=== PATIENT | female | born 1935 | race Caucasian/White ===

== ENCOUNTER 2024-11-19 10:57 | Inpatient (IN) | payer MEDICARE, SELFPAY ==
[2024-11-19] VITALS (17 sets, daily range): BP systolic 122–150; BP diastolic 64–90; PULSE 69–103; RESP 14–21; TEMP 36.4–37.4; O2SAT 93–98; BMI 16.9
--- NOTE | ~2024-11-19 | CT_ITS ---
EXAMINATION: CT HEAD WITHOUT CONTRAST (STROKE PROTOCOL) CLINICAL INFORMATION: Stroke protocol. COMPARISON: None available. TECHNIQUE: Contiguous axial imaging was performed from the skull base to vertex without intravenous administration of contrast. This CT examination was performed using dose optimization techniques as appropriate, variously including the following: *Automated exposure control *Adjustment of mA and/or kV according to patient size (this includes techniques or standardized protocols for targeted exams where dose is matched to indication/reason for exam; i.e. extremities or head) *Use of iterative reconstruction technique DLP 555 mGy/cm. FINDINGS: There is no acute intra-axial, extra-axial bleed, masses or midline shift. There is no acute infarction in evolution. There is no edema. 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 There is diffuse periventrical hypodensity in both cerebral hemispheres without mass effect. The lateral ventricles are moderately enlarged but symmetrical. The the craniovertebral junction is normal. Bone windows reveal no calvarial abnormality. Bilateral paranasal sinuses and mastoid air cells are well-aerated. There are small metallic densities along the anterior chamber of bilateral optic globe, likely postsurgical. Correlate with clinical history CT/CT head for STROKE IMPRESSION: No acute intracranial process seen. 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 This critical result was discussed with E at at 11:30 AM on 11/19/2022. It was ascertained that the content and urgency of the report was understood at the time of direct communication. Electronically signed by: Charly Garcia MD 11/19/2024 11:42 AM [facility]
--- NOTE | ~2024-11-19 | CT_ITS ---
EXAMINATION: CTA NECK WITH CONTRAST (STROKE) CTA BRAIN WITH CONTRAST (STROKE) CLINICAL INFORMATION: Suspect acute stroke. Assess for major vessel occlusion. Please call report. Left facial droop and left-sided deficits. COMPARISON: No prior CT angiography. Noncontrast head CT performed concurrently (reported separately). TECHNIQUE: CTA of the head and neck was performed in the axial plane from the mediastinum to the skull vertex using 70 mL Omnipaque 350 intravenous contrast. Additional reformatted multiplanar images including maximum intensity projection MIP images are generated on the CT workstation. This CT examination was performed using dose optimization techniques as appropriate, variously including the following: *Automated exposure control *Adjustment of mA and/or kV according to patient size (this includes techniques or standardized protocols for targeted exams where dose is matched to indication/reason for exam; i.e. extremities or head) *Use of iterative reconstruction technique NECK CTA: -AORTIC ARCH: Normal in caliber with mild atheromatous calcification. Three-vessel branching pattern. -GREAT VESSEL ORIGINS: Widely patent. -MAIN PULMONARY ARTERY: Enlarged, suggesting pulmonary arterial hypertension. -RIGHT COMMON CAROTID ARTERY: Normal in course and caliber to the level of the bifurcation. -CERVICAL RIGHT INTERNAL CAROTID ARTERY: Mild to moderate calcification and soft plaque within the carotid bulb. No stenosis. The proximal cervical ICA is tortuous but is otherwise normal in course and caliber into the skull base. -LEFT COMMON CAROTID ARTERY: Normal in course and caliber to the level of the bifurcation. -CERVICAL LEFT INTERNAL CAROTID ARTERY: Mild to moderate calcification and soft plaque within the carotid bulb. No stenosis. The proximal cervical ICA is tortuous but is otherwise normal in course and caliber into the skull base. -CERVICAL RIGHT VERTEBRAL ARTERY: Normal origin. Codominant. Normal in course and caliber into the skull base. No stenoses or dissection. -CERVICAL LEFT VERTEBRAL ARTERY: Normal origin. Codominant. Normal in course and caliber into the skull base. No stenoses or dissection. OTHER, SOFT TISSUES: -There appears to be lymphadenopathy within the mediastinum, of uncertain etiology or significance. -Subcentimeter cyst in the left thyroid. Thyroid otherwise normal. -There is relative atrophy of the right parotid gland in comparison with the left. -Imaged lung apices demonstrate biapical scarring, mild bronchial wall thickening bilaterally, and foci of dependent atelectasis. There is underlying mild COPD. CTA OF THE BRAIN: -INTRACRANIAL INTERNAL CAROTID ARTERIES: Patent without aneurysm or stenosis. Moderate calcification. -RIGHT ANTERIOR CEREBRAL ARTERY: Normal A1 segment. Normal arborization of the more distal segments. -LEFT ANTERIOR CEREBRAL ARTERY: The A1 segment is diminutive. Otherwise, normal arborization of the more distal segments. -ANTERIOR COMMUNICATING ARTERY: Normal. -RIGHT MIDDLE CEREBRAL ARTERY: Normal M1 segment of the MCA without focal stenosis or occlusion. Normal arborization of the distal segments. -LEFT MIDDLE CEREBRAL ARTERY: Normal M1 segment of the MCA without focal stenosis or occlusion. Normal arborization of the distal segments. -RIGHT VERTEBRAL ARTERY V4: Normal in course and caliber. -LEFT VERTEBRAL ARTERY V4: Normal in course and caliber. Minimal calcification V4 segment. -BASILAR ARTERY: Both vertebral arteries join to form the basilar. Normal without focal stenosis or occlusion. Normal appearance of the proximal superior cerebellar arteries. Normal basilar tip. -RIGHT POSTERIOR CEREBRAL ARTERY: Patent with hypoplastic right P1. There is a tiny flow gap in the distal right REPAIR DEPARTMENT MANAGER, proximal P4 segment (series 13, image 89), likely chronic contributing to old REPAIR DEPARTMENT MANAGER stroke. There is oligemia of the more distal segments. -LEFT POSTERIOR CEREBRAL ARTERY: Patent without stenosis. Normal opacification of the distal REPAIR DEPARTMENT MANAGER segments. -POSTERIOR COMMUNICATING ARTERIES: Patent on the right with partial origin of the REPAIR DEPARTMENT MANAGER. The left is not well seen and diminutive. Major cortical and dural venous sinuses appear patent. CT/CT angio head neck STROKE IMPRESSION: 1. There is no acute appearing high-grade stenosis, or acute-appearing flow gap or dissection involving the cervical or intracranial vasculature. 2. There is a tiny chronic-appearing flow gap in the distal P4 segment of the right REPAIR DEPARTMENT MANAGER. There is oligemia of the more distal segments in the region of prior infarct, chronic. 3. The main pulmonary artery is enlarged suggesting pulmonary arterial hypertension. 4. There is adenopathy within the mediastinum of uncertain etiology or significance. 5. Refer to the dedicated noncontrast head CT report for chronic findings. Major findings discussed with the Emergency Department provider Aline Barillas PA-C via phone call at 12:30 PM, 11/19/2024. Electronically signed by: Pan Guillen MD 11/19/2024 12:40 PM [facility] [place]
--- NOTE | ~2024-11-19 | XR_ITS ---
EXAMINATION: XR CHEST CLINICAL INFORMATION: Stroke Protocol COMPARISON: None available. TECHNIQUE: Frontal view of the chest was obtained. FINDINGS: The lungs are well-expanded and clear acute process. Heart size enlarged. Pulmonary vascularity is normal. There is mild dextroscoliosis of dorsal lumbar spine. There are loose bodies along the inferior right shoulder joint. XR/XR chest 1V IMPRESSION: No acute cardiopulmonary process seen. Electronically signed by: Charly Garcia MD 11/19/2024 12:13 PM [facility]
--- NOTE | 2024-11-19 11:00 | ECG_ITS ---
Test Reason : stroke Blood Pressure : */* mmHG Vent. Rate : 81 BPM Atrial Rate : * BPM P-R Int : * ms QRS Dur : 90 ms QT Int : 354 ms P-R-T Axes : * 0 211 degrees QTcB Int : 411 ms Atrial fibrillation Septal infarct , age undetermined Marked ST abnormality, possible anterior subendocardial injury Abnormal ECG No previous ECGs available Referred By: Aline Barillas Electronically Signed By: Chapincito Hamilton
--- NOTE | 2024-11-19 11:06 | ED.WEAKNESS ---
HPI - Weakness General Chief complaint: Stroke Stated complaint: ?STROKE,Rajesh AZUL, LKWT 9:30, +THIN,[facility] Time Seen by Provider: 11/19/24 11:00 Source: patient, EMS, RN notes reviewed and old records reviewed Mode of arrival: EMS History of Present Illness ED Provider: Aline Barillas PA-C HPI Narrative: 89-year-old female with a past medical history dysphagia, AFib on Eliquis, diabetes, HTN, HLD, dementia, wheelchair-bound, presenting to the ED via EMS from [facility] complaining of left-sided facial droop and left-sided body weakness noted by staff at 09:30. Unknown last well. Per EMS at baseline patient is wheelchair bound however attempts frequently to get out of chair. Remaining history limited due to patient's acute mental status Related Data Allergies Allergy/AdvReac Type Severity Reaction Status Date / Time No Known Allergies Allergy Verified 11/19/24 11:12 Review of Systems Review of Systems: Yes all other systems are reviewed and are negative Constitutional: Constitutional: Reports as per HPI [facility] Past Medical History Attestation statement: The following information was validated with the patient. Source: old records reviewed Social History Social History Advance Directives: No Advance Directives Information Provided: No Physical Exam Vital Signs: Vital Signs: Last Vital Signs Temp 99.4 F 11/19/24 11:26 Pulse 90 11/19/24 11:26 Resp 20 11/19/24 11:26 BP 129/64 11/19/24 11:26 Pulse Ox 95 11/19/24 11:26 O2 Del Method Room Air 11/19/24 11:26 BMI result Body Mass Index 16.9 Const: General: no acute distress HEENT: Head: Yes normal to inspection and Yes atraumatic Ears: hearing grossly normal bilaterally General nose exam: Normal external nose present Eyes: General: appearance normal, both eyes and all related structures EOM: EOMs intact bilaterally Neck: Neck: Yes normal visual inspection and Yes no meningeal signs Resp: Effort & Inspection: normal respiratory effort and no respiratory distress Auscultation: clear to auscultation bilaterally Cardio: Rate: regular rate Heart sounds: S1 normal heart sound present and S2 normal heart sound present GI: Inspection: Yes normal to inspection Palpation (GI): Soft to palpation, nontender, no guarding and not rigid Skin: Rashes: no rashes Wounds: no wounds Neuro: Other: + left-sided facial droop and left-sided UE & LE paralysis General: no meningeal signs Extrem: General: Yes normal to inspection NIH Stroke Scale Internal: Initial- Upon Arrival Level of Consciousness: Not Alert; but arousable by minor stimulation Level of Consciousness Questions: Answers neither question correctly Level of Consciousness Commands: Performs both tasks correctly Best Gaze: Normal Visual: No visual loss Facial Palsy: Complete paralysis Motor Arm (Right): No drift Motor Arm (Left): No movement Motor Leg (Right): No drift Motor Leg (Left): No movement Limb Ataxia: Absent Sensory: Normal Best Language: Severe aphasia (mute) Dysarthia: Severe dysarthria (mute) Extinction and Inattention: No abnormality Score: 18 Course Course Course Narrative: -1237--labs reassuring. Elevated triglycerides. -UA infected > may be causing encephalopathy. Will give IV ertapenem based on history of ESBL E coli UTIs. Low suspicion for severe sepsis > plan is for admission, case discussed with hospitalist Medications Administered Discontinued Medications Generic Name Dose Route Start Last Admin Trade Name Freq PRN Reason Stop Dose Admin Iohexol 100 ml 11/19/24 11:53 11/19/24 11:53 Iohexol 350 Mg/Ml 100 Ml Infus..Btl IV 11/19/24 11:54 70 ml ONCE ONE Administration Medical Decision Making Medical Decision Making [facility] Narrative: 89-year-old female with a past medical history dysphagia, AFib on Eliquis, diabetes, HTN, HLD, dementia, wheelchair-bound, presenting to the ED via EMS from [facility] complaining of left-sided facial droop and left-sided body weakness noted by staff at 09:30. On exam initially tachycardic, alert to voice, following commands, left-sided facial paralysis and LUE & LLE paralysis noted. Concern for acute CVA vs ICH. Rule out infectious etiology. Low suspicion for severe sepsis NIHSS = 18 > patient is not candidate for tPA as his already anticoagulated Plan: EKG, labs, UA, CXR, stroke head CT/CTA, anticipated admission Please refer to course for remaining clinical decision making, interpretation of labs/imaging results, and discussions with consultants and/or family members. Differential Diagnosis Differential Diagnoses: The differential diagnosis associated with the presentation includes As above Admission/Observation Consideration of admission/observation: Escalation of care including admission/observation considered Consult Healthcare Provider Management of the patient was discussed with: Hospitalist Lab Data [facility] Lab Attestation statement: I reviewed the patient's lab results. 11/19/24 11:05 11/19/24 11:05 Labs: Lab Results 11/19/24 11/19/24 11/19/24 Range/Units 11:05 11:06 11:07 WBC 11.5 H (4.8-10.8) X10*3/uL RBC 5.35 (4.20-5.50) X10*6/uL Hgb 14.8 (12.0-16.0) g/dl Hct 46.4 (37.0-47.0) % MCV 86.7 (80.0-98.0) fL MCH 27.7 (27.0-33.0) pg MCHC 31.9 (31.0-35.0) g/dl RDW 14.4 (11.0-16.0) % Plt Count 272 (160-400) X10*3/uL MPV 11.3 (9.4-12.3) fL Immature Gran % (Auto) 0.5 H (0.0-0.4) % Neut % (Auto) 72.5 (45-73) % Lymph % (Auto) 16.0 L (20-40) % [place] % (Auto) 7.1 (2-11) % Eos % (Auto) 2.7 (0-4) % Baso % (Auto) 1.2 (0-2) % Lymph # (Auto) 1.8 (1.2-4.9) X10*3/uL [place] # (Auto) 0.8 (0.1-1.2) X10*3/uL Eos # (Auto) 0.3 (0.0-0.4) X10*3/uL Baso # (Auto) 0.1 (0.0-0.2) X10*3/uL Abs Immat Gran (auto) 0.06 H (0.00-0.03) X10*3/uL Absolute Neuts (auto) 8.4 H (2.0-8.3) x10*3/uL Absolute Nucleated RBC 0.000 (0.0-0.012) X10*3/uL Nucleated RBC % (auto) 0.0 (0.0-0.2) /100WBC Hold Purple Top SEE NOTE PT 18.6 H (10.9-12.4) SEC Whole Blood PT 19.1 H (11.1-13.5) sec INR 1.6 H (0.9-1.1) Whole Blood INR 1.6 H (0.9-1.1) APTT 29.7 (26.0-36.8) SEC Sodium 150 H (135-145) mmol/L Potassium 4.5 (3.3-5.1) mmol/L Chloride 116 H (96-108) mmol/L Carbon Dioxide 26 (22-29) mmol/L Anion Gap 13 (12-20) BUN 47 H (9-16) mg/dL Creatinine 0.86 (0.5-1.4) mg/dL Estim Creat Clear Calc 28.9 Estimated GFR > 60 POC Glucose 152 H (60-115) mg/dL Random Glucose 164 H (60-115) mg/dL Calcium 9.8 (8.4-10.2) mg/dL Magnesium 2.2 (1.6-2.6) mg/dL Total Bilirubin 0.6 (0.0-1.0) mg/dL Direct Bilirubin 0.3 (0.0-0.5) mg/dL AST 17 (5-31) U/L ALT 12 (0-31) U/L Alkaline Phosphatase 65 (39-117) U/L Troponin I High Sens 8.1 (<3.5-17.0) ng/L Total Protein 7.3 (6.5-8.0) g/dL Albumin 3.6 (3.5-5.0) g/dL Triglycerides 248 H (<150) mg/dL Cholesterol 131 (<200) mg/dL LDL Cholesterol, Calc 63 (<100) mg/dL HDL Cholesterol 19 L (>40) mg/dL Urine Color Urine Appearance Urine pH (5.0-9.0) Ur Specific [place] (1.005-1.025) Urine Protein (Neg-Trace) mg/dL Urine Glucose (UA) (Negative) mg/dL Urine Ketones (Negative) mg/dL Urine Blood (Negative) Urine Nitrite (Negative) Ur Leukocyte Esterase (Negative) Urine RBC (0-2) /HPF Urine WBC (0-5) /HPF Urine WBC Clumps Ur Squamous Epith Cells (0-2) /HPF Urine Bacteria (None Seen) Hyaline Casts (0-2) /LPF 11/19/24 Range/Units 12:19 WBC (4.8-10.8) X10*3/uL RBC (4.20-5.50) X10*6/uL Hgb (12.0-16.0) g/dl Hct (37.0-47.0) % MCV (80.0-98.0) fL MCH (27.0-33.0) pg MCHC (31.0-35.0) g/dl RDW (11.0-16.0) % Plt Count (160-400) X10*3/uL MPV (9.4-12.3) fL Immature Gran % (Auto) (0.0-0.4) % Neut % (Auto) (45-73) % Lymph % (Auto) (20-40) % [place] % (Auto) (2-11) % Eos % (Auto) (0-4) % Baso % (Auto) (0-2) % Lymph # (Auto) (1.2-4.9) X10*3/uL [place] # (Auto) (0.1-1.2) X10*3/uL Eos # (Auto) (0.0-0.4) X10*3/uL Baso # (Auto) (0.0-0.2) X10*3/uL Abs Immat Gran (auto) (0.00-0.03) X10*3/uL Absolute Neuts (auto) (2.0-8.3) x10*3/uL Absolute Nucleated RBC (0.0-0.012) X10*3/uL Nucleated RBC % (auto) (0.0-0.2) /100WBC Hold Purple Top PT (10.9-12.4) SEC Whole Blood PT (11.1-13.5) sec INR (0.9-1.1) Whole Blood INR (0.9-1.1) APTT (26.0-36.8) SEC Sodium (135-145) mmol/L Potassium (3.3-5.1) mmol/L Chloride (96-108) mmol/L Carbon Dioxide (22-29) mmol/L Anion Gap (12-20) BUN (9-16) mg/dL Creatinine (0.5-1.4) mg/dL Estim Creat Clear Calc Estimated GFR POC Glucose (60-115) mg/dL Random Glucose (60-115) mg/dL Calcium (8.4-10.2) mg/dL Magnesium (1.6-2.6) mg/dL Total Bilirubin (0.0-1.0) mg/dL Direct Bilirubin (0.0-0.5) mg/dL AST (5-31) U/L ALT (0-31) U/L Alkaline Phosphatase (39-117) U/L Troponin I High Sens (<3.5-17.0) ng/L Total Protein (6.5-8.0) g/dL Albumin (3.5-5.0) g/dL Triglycerides (<150) mg/dL Cholesterol (<200) mg/dL LDL Cholesterol, Calc (<100) mg/dL HDL Cholesterol (>40) mg/dL Urine Color Dark Yellow Urine Appearance Turbid Urine pH 5.5 (5.0-9.0) Ur Specific [place] 1.025 (1.005-1.025) Urine Protein 100 (2+) H (Neg-Trace) mg/dL Urine Glucose (UA) Negative (Negative) mg/dL Urine Ketones Negative (Negative) mg/dL Urine Blood Large (3+) H (Negative) Urine Nitrite Positive H (Negative) Ur Leukocyte Esterase Large (3+) H (Negative) Urine RBC 6-10 H (0-2) /HPF Urine WBC >50 H (0-5) /HPF Urine WBC Clumps Present Ur Squamous Epith Cells >20 (0-2) /HPF Urine Bacteria 4+ (None Seen) Hyaline Casts 0-2 (0-2) /LPF Independent Interpretation I performed an independent interpretation of an: EKG, Plain X-Ray and CT Scan Radiology Impression Discussion of test interpretation with radiology: I have reviewed the radiologist's reading. Independent Historian Clinical information obtained from an independent historian. History obtained from or confirmed by: EMS External Record Review External record reviewed: Inpatient record, Office record, Outpatient record, Prior outpatient labs, Prior outpatient radiology, Primary care record and Outside ED record Tests considered The following testing was considered but not selected: As above Prescription Management I considered prescription management with: Other Chronic Conditions Patient?s care impacted by: Other (a fib) Social Determinants Patient?s care significantly limited by Social Determinants of Health including: Other Social Determinant of Health Critical Care Time Critical Care Time Critical Care Time: Yes Total Critical Care Time: 45 Attestation: I have personally provided critical care time exclusive of time spent on separately billable procedures. Time includes review of lab data, radiology results, discussion with consultants, and monitoring for potential decompensation. Intervention performed as documented. Discharge Plan Discharge Clinical Impression: Acute UTI, Encephalopathy, Hemiparesis Patient Disposition: Admitted As Inpatient Print Language: Kinyarwanda
[2024-11-19 11:10] LABS: Prothrombin Time Whole Bld POC 19.1 sec (11.1-13.5); ~PT, ~INR - Anti Coag Clinic 1.6 (0.9-1.1)
[2024-11-19 11:11] LABS: Glucose, Whole Blood 152 mg/dL (60-115)
[2024-11-19 11:18] LABS: MANUAL DIFF FLAG NO
[2024-11-19 11:31] LABS: Basophils Absolute Auto 0.1 X10*3/uL (0.0-0.2); Basophils Percent Auto 1.2 % (0-2); Eosinophils Absolute Auto 0.3 X10*3/uL (0.0-0.4); Eosinophils Percent Auto 2.7 % (0-4); Hematocrit 46.4 % (37.0-47.0); Hemoglobin 14.8 g/dl (12.0-16.0); Imm Gran Abs Auto 0.06 X10*3/uL (0.00-0.03); Imm Gran Pct Auto 0.5 % (0.0-0.4); Lymphocytes Absolute Auto 1.8 X10*3/uL (1.2-4.9); Mean Corpuscular HGB Conc 31.9 g/dl (31.0-35.0); Mean Corpuscular Hemoglobin 27.7 pg (27.0-33.0); Mean Corpuscular Volume 86.7 fL (80.0-98.0); Mean Platelet Volume 11.3 fL (9.4-12.3); Monocytes Absolute Auto 0.8 X10*3/uL (0.1-1.2); Monocytes Percent Auto 7.1 % (2-11); Neutrophils Absolute Auto 8.4 x10*3/uL (2.0-8.3); Neutrophils Percent Auto 72.5 % (45-73); Platelet Count 272 X10*3/uL (160-400); Red Blood Count 5.35 X10*6/uL (4.20-5.50); Red Cell Distribution Width 14.4 % (11.0-16.0); White Blood Count 11.5 X10*3/uL (4.8-10.8)
[2024-11-19 11:39] LABS: INTERNATIONAL NORM RATIO 1.6 (0.9-1.1); Prothrombin Time 18.6 SEC (10.9-12.4)
[2024-11-19 11:42] LABS: Partial Thromboplastin Time 29.7 SEC (26.0-36.8)
[2024-11-19 11:45] LABS: Stroke Lab Use COMPLETE
[2024-11-19 11:46] LABS: Alanine Aminotransferase 12 U/L (0-31); Albumin Level 3.6 g/dL (3.5-5.0); Alkaline Phosphatase 65 U/L (39-117); Anion Gap 13 (12-20); Aspartate Amino Transferase 17 U/L (5-31); Bilirubin Direct 0.3 mg/dL (0.0-0.5); Bilirubin Total 0.6 mg/dL (0.0-1.0); Blood Urea Nitrogen 47 mg/dL (9-16); Calcium 9.8 mg/dL (8.4-10.2); Carbon Dioxide 26 mmol/L (22-29); Chloride 116 mmol/L (96-108); Cholesterol 131 mg/dL (<200); Creatinine Clr Calc Pharmacy 28.9; Estimated Glomerular Filt Rate > 60; Glucose Random 164 mg/dL (60-115); HDL Cholesterol 19 mg/dL (>40); LDL Cholesterol Calculated 63 mg/dL (<100); Magnesium 2.2 mg/dL (1.6-2.6); Potassium 4.5 mmol/L (3.3-5.1); Sodium 150 mmol/L (135-145); Total Protein 7.3 g/dL (6.5-8.0); Triglycerides 248 mg/dL (<150)
[2024-11-19] MEDS: iohexoL 350 MG/ML 100 ML INFUS..BTL IV (11:53)
[2024-11-19 11:54] LABS: Troponin-I High Sensitivity 8.1 ng/L (<3.5-17.0)
[2024-11-19 12:26] LABS: Appearance Urine Turbid; Color Urine Dark Yellow; Glucose Urine UA Negative (Negative); Leukocyte Esterase Urine Large (3+) (Negative); Nitrite Urine Positive (Negative); PH 5.5 (5.0-9.0); Specific Gravity - Urine 1.025 (1.005-1.025); UMIC TRIGGER UACC YES; Urine Blood Large (3+) (Negative); Urine Ketones Negative (Negative); Urine Protein 100 (2+) mg/dL (Neg-Trace)
[2024-11-19 12:39] LABS: Bacteria Urine 4+ (None Seen); Hyaline Casts Urine 0-2 /LPF (0-2); Squamous Epithelial Cell Urine >20 /HPF (0-2); UACC Culture Trigger YES; WBC Clumps Urine Present; WBC Urine >50 /HPF (0-5)
[2024-11-19] MEDS: Ertapenem Sodium 1 GM VIAL IVPUSH (12:48)
--- NOTE | 2024-11-19 13:09 | PHA.MEDREC ---
Addendum entered by Haylie Dc RPh 11/19/24 13:54: reviewed by [facility]. Original Note: Pharmacy Consult ? Medication Reconciliation Pharmacy has completed the medication reconciliation. Utilized list from [facility] to confirm med list.
[2024-11-19] MEDS: Dextrose 5 % and Lactated Ring 1,000 ML 60 ML IVCONT (13:12)
[2024-11-19 13:39] LABS: Influenza A PCR NEGATIVE (Negative); Influenza B PCR NEGATIVE (Negative); Resp Syncy Virus RNA Qual PCR NEGATIVE (Negative); SARS COV2 PCR INHOUSE NEGATIVE (Negative)
--- NOTE | 2024-11-19 13:45 | PM.IMHP ---
History of Present Illness Date of Service: 11/19/24 Chief Complaint: Left facial droop/left-sided weakness 89 year old female resident of [facility] with past medical history of dysphagia on pureed and nectar thick liquids, AFib on Eliquis, diabetes, hypertension, hyperlipidemia, dementia, wheelchair-bound presented to emergency room via EMS due to left-sided facial droop and left sided weakness noted by staff at 09:30 unknown last well time, labs showed mild leukocytosis WBC 11.5 stable H&H and platelets, sodium 150, blood sugar 164 BUN 47 with normal creatinine 0.86,due to concern for acute CVA versus intracranial hemorrhage CT head and CTA was obtained, CT head showed no acute intracranial process, showed old left inferior cerebellar and left occipital 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 Review of Systems Review of Systems: Unable to obtain detailed review of system as above PMFSH Pertinent family history: Unable to obtain due to dementia Social History Advance Directives: No Advance Directives Information Provided: No Meds Allergies Allergy/AdvReac Type Severity Reaction Status Date / Time No Known Allergies Allergy Verified 11/19/24 11:12 Active Medications: Current Medications Dextrose/Lactated Ringer's (D5lr) 1,000 mls @ 60 mls/hr IVCONT .[id number] Last Admin: 11/19/24 13:12 Dose: 60 mls/hr Home Medications ?Medication ?Instructions ?Recorded ?Confirmed ?Last Taken ?Type acetaminophen 325 mg tablet 650 mg PO Q8H PRN Fever Or Pain 11/19/24 11/19/24 Unknown History alendronate 70 mg tablet 70 mg PO MO 11/19/24 11/19/24 Unknown History apixaban 2.5 mg tablet (Eliquis) 2.5 mg PO BID 11/19/24 11/19/24 Unknown History bisacodyl 10 mg rectal suppository 10 mg MD DAILY PRN Constipation 11/19/24 11/19/24 Unknown History (Dulcolax (bisacodyl)) brimonidine 0.15 % eye drops 1 drp ophthalmic (eye) BID 11/19/24 11/19/24 Unknown History cholecalciferol (vitamin D3) 25 25 mcg PO DAILY 11/19/24 11/19/24 Unknown History mcg (1,000 unit) capsule (Vitamin D3) digoxin 125 mcg (0.125 mg) tablet 125 mcg PO DAILY 11/19/24 11/19/24 Unknown History dorzolamide 2 % eye drops 1 drp ophthalmic (eye) BID 11/19/24 11/19/24 Unknown History latanoprost 0.005 % eye drops 1 drp ophthalmic (eye) BEDTIME 11/19/24 11/19/24 Unknown History lisinopril 5 mg tablet 5 mg PO DAILY 11/19/24 11/19/24 Unknown History magnesium hydroxide 400 mg/5 mL 30 ml PO DAILY PRN Constipation 11/19/24 11/19/24 Unknown History oral suspension (Milk of Magnesia) metformin 500 mg tablet 500 mg PO DAILY 11/19/24 11/19/24 Unknown History metoprolol succinate 50 mg 50 mg PO DAILY 11/19/24 11/19/24 Unknown History tablet,extended release 24 hr pravastatin 10 mg tablet 10 mg PO BEDTIME 11/19/24 11/19/24 Unknown History pregabalin 150 mg capsule (Lyrica) 150 mg PO DAILY 11/19/24 11/19/24 Unknown History sodium phosphates 19 gram-7 118 ml MD DAILY PRN Constipation 11/19/24 11/19/24 Unknown History gram/118 mL enema (Fleet Enema) Physical Exam Vital Signs and Narrative: Vital Signs: Last Vital Signs Temp 99.4 F 11/19/24 11:26 Pulse 71 11/19/24 13:07 Resp 15 11/19/24 13:07 BP 122/70 11/19/24 13:07 Pulse Ox 98 11/19/24 13:07 O2 Del Method Room Air 11/19/24 13:07 BMI result Body Mass Index 16.9 Const: Other: General resting comfortably in no acute distress. Neck supple no JVD. CVS regular rate rhythm, Respiratory lungs clear to auscultation, no respiratory distress, no wheeze, no rhonchi. Gastrointestinal abdomen soft, non tender, bowel sounds audible, no guarding , no rigidity. Extremities no edema. Neuro left facial droop/left-sided upper and lower extremity flaccid paralysis. Speech unclear/dry mouth Skin no rash Results Labs 11/19/24 11:05 11/19/24 11:05 Labs: Laboratory Results - last 24 hr 11/19/24 11/19/24 11/19/24 11:05 11:06 11:07 MCV 86.7 MCH 27.7 MCHC 31.9 RDW 14.4 Plt Count 272 MPV 11.3 Immature Gran % (Auto) 0.5 H Neut % (Auto) 72.5 Lymph % (Auto) 16.0 L [place] % (Auto) 7.1 Eos % (Auto) 2.7 Baso % (Auto) 1.2 Lymph # (Auto) 1.8 [place] # (Auto) 0.8 Eos # (Auto) 0.3 Baso # (Auto) 0.1 Abs Immat Gran (auto) 0.06 H Absolute Neuts (auto) 8.4 H Absolute Nucleated RBC 0.000 Nucleated RBC % (auto) 0.0 Hold Purple Top SEE NOTE PT 18.6 H Whole Blood PT 19.1 H INR 1.6 H Whole Blood INR 1.6 H APTT 29.7 Anion Gap 13 Estim Creat Clear Calc 28.9 Estimated GFR > 60 POC Glucose 152 H Random Glucose 164 H Calcium 9.8 Magnesium 2.2 Total Bilirubin 0.6 Direct Bilirubin 0.3 AST 17 ALT 12 Alkaline Phosphatase 65 Troponin I High Sens 8.1 Total Protein 7.3 Albumin 3.6 Triglycerides 248 H Cholesterol 131 LDL Cholesterol, Calc 63 HDL Cholesterol 19 L Urine Color Urine Appearance Urine pH Ur Specific [place] Urine Protein Urine Glucose (UA) Urine Ketones Urine Blood Urine Nitrite Ur Leukocyte Esterase Urine RBC Urine WBC Urine WBC Clumps Ur Squamous Epith Cells Urine Bacteria Hyaline Casts Influenza Type A (PCR) Influenza Type B (PCR) RSV RNA Qual (PCR) SARS-CoV-2 RNA (RT-PCR) 11/19/24 11/19/24 12:19 12:46 MCV MCH MCHC RDW Plt Count MPV Immature Gran % (Auto) Neut % (Auto) Lymph % (Auto) [place] % (Auto) Eos % (Auto) Baso % (Auto) Lymph # (Auto) [place] # (Auto) Eos # (Auto) Baso # (Auto) Abs Immat Gran (auto) Absolute Neuts (auto) Absolute Nucleated RBC Nucleated RBC % (auto) Hold Purple Top PT Whole Blood PT INR Whole Blood INR APTT Anion Gap Estim Creat Clear Calc Estimated GFR POC Glucose Random Glucose Calcium Magnesium Total Bilirubin Direct Bilirubin AST ALT Alkaline Phosphatase Troponin I High Sens Total Protein Albumin Triglycerides Cholesterol LDL Cholesterol, Calc HDL Cholesterol Urine Color Dark Yellow Urine Appearance Turbid Urine pH 5.5 Ur Specific [place] 1.025 Urine Protein 100 (2+) H Urine Glucose (UA) Negative Urine Ketones Negative Urine Blood Large (3+) H Urine Nitrite Positive H Ur Leukocyte Esterase Large (3+) H Urine RBC 6-10 H Urine WBC >50 H Urine WBC Clumps Present Ur Squamous Epith Cells >20 Urine Bacteria 4+ Hyaline Casts 0-2 Influenza Type A (PCR) NEGATIVE Influenza Type B (PCR) NEGATIVE RSV RNA Qual (PCR) NEGATIVE SARS-CoV-2 RNA (RT-PCR) NEGATIVE Imaging Radiologist's Impressions: Impressions Head CT 11/19/24 11:00 IMPRESSION: No acute intracranial process seen. 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 This critical result was discussed with E at at 11:30 AM on 11/19/2022. It was ascertained that the content and urgency of the report was understood at the time of direct communication. Electronically signed by: Charly Garcia MD 11/19/2024 11:42 AM EST RP Chest X-Ray 11/19/24 11:01 IMPRESSION: No acute cardiopulmonary process seen. Electronically signed by: Charly Garcia MD 11/19/2024 12:13 PM EST RP Head/Neck CTA 11/19/24 11:43 IMPRESSION: 1. There is no acute appearing high-grade stenosis, or acute-appearing flow gap or dissection involving the cervical or intracranial vasculature. 2. There is a tiny chronic-appearing flow gap in the distal P4 segment of the right END USER CONSULTANT. There is oligemia of the more distal segments in the region of prior infarct, chronic. 3. The main pulmonary artery is enlarged suggesting pulmonary arterial hypertension. 4. There is adenopathy within the mediastinum of uncertain etiology or significance. 5. Refer to the dedicated noncontrast head CT report for chronic findings. Major findings discussed with the Emergency Department provider Aline Barillas PA-C via phone call at 12:30 PM, 11/19/2024. Electronically signed by: Pan Guillen MD 11/19/2024 12:40 PM [facility] Assessment and Plan (1) Hemiparesis: Status: Acute (2) Acute UTI: Status: Acute Plan 89-year-old female with past medical history of it is a less for all dysphagia, AFib on Eliquis, diabetes, HTN, HLD, dementia, wheelchair-bound, presenting to the ED via EMS from [facility] with left-sided facial droop and left-sided body weakness noted by staff at 09:30 in ED patient noted to have left facial paralysis and left-sided weakness initially tachycardic following commands, found to have UTI CT head and CTA head and neck unremarkable. Acute UTI No sepsis History of ESBL positive E coli Treated in ED with IV ertapenem will place on meropenem follow final urine and blood culture report Acute left facial droop and left-sided weakness Likely due to acute CVA Not a candidate for tPA since unknown last well time and on Eliquis Normal CT head and CTA LDL 63, total cholesterol 131, stable blood pressure hold lisinopril to allow permissive hypertension Continue Eliquis/chronically wheelchair-bound Speech therapy/PT/OT Neuro consult, will discuss need for MRI study Chronic persistent Atrial fibrillation EKG showed atrial fibrillation, marked ST abnormality , no chest pain ,normal troponin 8.1, further workup Continue Eliquis and metoprolol Acute toxic metabolic encephalopathy Question baseline/likely worsening symptoms due to acute UTI/cva Diabetes mellitus type 2 Hold metformin,/diabetic diet once cleared by speech therapy Acute hypernatremia IV fluids and follow labs Moderate protein calorie malnutrition add supplements Unspecified dementia frequent reorientation resume Lyrica once able to tolerate by mouth. Code status do not intubate ,do chest compressions as per MOLST DVT prophylaxis on Eliquis Patient will require 2 night inpatient hospitalization for management treatment and expert consultation for acute left-sided facial droop and weakness and IV antibiotics for acute UTI. Quality Stroke Does the patient have a stroke diagnosis?: No VTE Prior VTE?: No VTE Risk Level:: Medical - moderate - high VTE Device Contraindication: Treatment Not Indicated VTE Drug Contraindication: N/A - Med Ordered
--- NOTE | 2024-11-19 14:24 | MHC.STROKE ---
Met with patient in ED bed 5. Attempted to review risk factors and discuss stroke education. Pt has hx of baseline dementia and was unable to engage in this learning opportunity. I did leave stroke information at the bedside. Swallow screen failed as patient could not engage in this activity. Speech/Hearing notified by this financial underwriter of the initial failed assessment. Will continue to assist as needed.
--- NOTE | 2024-11-19 15:06 | PC.NURSE ---
Pt presents to ED via EMS from [facility] for Stroke alert, staff noticed left sided weakness/ facial droop and aphasia around 0930, unknown LKWT. Pt is usually able to get around in her wheelchair and talk at baseline. Pt is alert but not speaking, nods head and looks around. Breathing even and unlabored, skin warm and pale. Straight cath for urine, noted to be foul and cloudy. NSR on bedside community support associate.
--- NOTE | 2024-11-19 15:23 | PC.NURSE ---
Purewick placed for incontinence, pt cleaned. Small wound noted on coccyx, wound pad placed.
--- NOTE | 2024-11-19 16:25 | P.CNNE_ITS ---
History of Present Illness Data of Consult Service Date: 11/19/24 Primary Care Provider: John Snatoyo MD [facility] Reason for consult: Left hemiparesis 89 year old female resident of [facility] with past medical history of dysphagia on pureed and nectar thick liquids, AFib on Eliquis, diabetes, hypertension, hyperlipidemia, dementia, wheelchair-bound presented to emergency room via EMS due to left-sided facial droop and left sided weakness. it is not clear when was the last time she was without this weakness. She was unable to provide any meaningful history. There was no sign of any seizure or any distress with pain. Review of Systems 2 Review of Systems: Could not be done with her PMFSH Social History Social History Advance Directives: No Advance Directives Information Provided: No Meds Allergies Allergy/AdvReac Type Severity Reaction Status Date / Time No Known Allergies Allergy Verified 11/19/24 11:12 Active Medications: Current Medications Acetaminophen (Acetaminophen 325 Mg Tablet) 650 mg PO Q6H PRN PRN Reason: Pain, Mild 1-3,fever,headache Apixaban (Apixaban 2.5 Mg Tablet) 2.5 mg PO BID JAZMYN Calcium Carbonate (Calcium Carbonate 750 Mg Tab.Chew) 750 mg PO Q4H PRN PRN Reason: Heartburn Digoxin (Digoxin 0.125 Mg Tablet) 0.125 mg PO DAILY JAZMYN; Protocol Dorzolamide HCl (Dorzolamide Hcl 2 % Ophth Yari 10 Ml Drpbtl) 1 drop EYE-BOTH BID [facility] Dextrose/Lactated Ringer's (D5lr) 1,000 mls @ 60 mls/hr IVCONT .[id number] JAZMYN Last Admin: 11/19/24 13:12 Dose: 60 mls/hr Latanoprost (Latanoprost 0.005 % Ophth Yari 2.5 Ml Drops) 1 drop EYE-BOTH BEDTIME JAZMYN Magnesium Hydroxide (Milk Of Magnesia 30 Ml Oral.Susp) 30 ml PO DAILY PRN PRN Reason: Constipation Melatonin (Melatonin 3 Mg Tablet) 6 mg PO BEDTIME PRN PRN Reason: Insomnia Meropenem (Meropenem 1 Gm Vial) 1 gm IVPUSH Q12H JAZMYN Metoprolol Succinate (Metoprolol Succinate Er 50 Mg Tab.Er.24h) 50 mg PO DAILY JAZMYN; Protocol Non-Formulary Medication (Brimonidine) 1 drop EYE-BOTH BID [facility] Ondansetron HCl (Ondansetron Hcl 4 Mg/2 Ml Vial) 4 mg IVPUSH Q8H PRN PRN Reason: Nausea and Vomiting Pravastatin Sodium (Pravastatin Sodium 10 Mg Tablet) 10 mg PO BEDTIME JAZMYN Pregabalin (Pregabalin 150 Mg Capsule) 150 mg PO DAILY [facility] Sodium Chloride (0.9 % Sodium Chloride Flush 3 Ml Syringe) 3 ml IVFLUSH QSHIFT JAZMYN Last Admin: 11/19/24 15:03 Dose: Not Given Home Medications ?Medication ?Instructions ?Recorded ?Confirmed ?Last Taken ?Type acetaminophen 325 mg tablet 650 mg PO Q8H PRN Fever Or Pain 11/19/24 11/19/24 Unknown History alendronate 70 mg tablet 70 mg PO MO 11/19/24 11/19/24 Unknown History apixaban 2.5 mg tablet (Eliquis) 2.5 mg PO BID 11/19/24 11/19/24 Unknown History bisacodyl 10 mg rectal suppository 10 mg AL DAILY PRN Constipation 11/19/24 11/19/24 Unknown History (Dulcolax (bisacodyl)) brimonidine 0.15 % eye drops 1 drp ophthalmic (eye) BID 11/19/24 11/19/24 Unknown History cholecalciferol (vitamin D3) 25 25 mcg PO DAILY 11/19/24 11/19/24 Unknown History mcg (1,000 unit) capsule (Vitamin D3) digoxin 125 mcg (0.125 mg) tablet 125 mcg PO DAILY 11/19/24 11/19/24 Unknown History dorzolamide 2 % eye drops 1 drp ophthalmic (eye) BID 11/19/24 11/19/24 Unknown History latanoprost 0.005 % eye drops 1 drp ophthalmic (eye) BEDTIME 11/19/24 11/19/24 Unknown History lisinopril 5 mg tablet 5 mg PO DAILY 11/19/24 11/19/24 Unknown History magnesium hydroxide 400 mg/5 mL 30 ml PO DAILY PRN Constipation 11/19/24 11/19/24 Unknown History oral suspension (Milk of Magnesia) metformin 500 mg tablet 500 mg PO DAILY 11/19/24 11/19/24 Unknown History metoprolol succinate 50 mg 50 mg PO DAILY 11/19/24 11/19/24 Unknown History tablet,extended release 24 hr pravastatin 10 mg tablet 10 mg PO BEDTIME 11/19/24 11/19/24 Unknown History pregabalin 150 mg capsule (Lyrica) 150 mg PO DAILY 11/19/24 11/19/24 Unknown History sodium phosphates 19 gram-7 118 ml AL DAILY PRN Constipation 11/19/24 11/19/24 Unknown History gram/118 mL enema (Fleet Enema) Physical Exam 2 Vital Signs: Vital Signs: Last Vital Signs Temp 99.4 F 11/19/24 11:26 Pulse 78 11/19/24 15:22 Resp 18 11/19/24 15:22 BP 148/88 H 11/19/24 15:22 Pulse Ox 97 11/19/24 15:22 O2 Del Method Room Air 11/19/24 15:22 BMI result Body Mass Index 16.9 Neuro: Other: alert and awake looking around but did not make eye contact and said that she could not see. She could not count fingers close to her eyes. Her pupils were 4-5 mm nonreactive. She was able to tell me her 1st and last name but otherwise was not following commands on consistent basis. For example when I asked her to move her right or left leg she was not doing that. Spontaneously she was moving right arm and leg and not the left side. There was moderate left-sided facial flatness. Results Labs 11/19/24 11:05 11/19/24 11:05 Labs: Short CBC 11/19/24 Range/Units 11:05 WBC 11.5 H (4.8-10.8) X10*3/uL Hgb 14.8 (12.0-16.0) g/dl Hct 46.4 (37.0-47.0) % Plt Count 272 (160-400) X10*3/uL BMP 11/19/24 11:05 Sodium 150 H Potassium 4.5 Chloride 116 H Carbon Dioxide 26 BUN 47 H Creatinine 0.86 Calcium 9.8 Liver Function 11/19/24 Range/Units 11:05 Total Bilirubin 0.6 (0.0-1.0) mg/dL Direct Bilirubin 0.3 (0.0-0.5) mg/dL AST 17 (5-31) U/L ALT 12 (0-31) U/L Alkaline Phosphatase 65 (39-117) U/L Albumin 3.6 (3.5-5.0) g/dL Urine 11/19/24 Range/Units 12:19 Urine Color Dark Yellow Urine Appearance Turbid Urine pH 5.5 (5.0-9.0) Ur Specific [place] 1.025 (1.005-1.025) Urine Protein 100 (2+) H (Neg-Trace) mg/dL Urine Glucose (UA) Negative (Negative) mg/dL Brain imaging with CT and CTA of brain and neck were reviewed. It revealed extensive cerebral atrophy and significant chronic ischemic disease of brain. No significant vascular stenosis was noted. EKG revealed atrial fibrillation. Assessment and Plan (1) Hemiparesis: Qualifiers: Hemiparesis etiology: unspecified Hemiparesis laterality: left dominant side Qualified Code(s): G81.92 - Hemiplegia, unspecified affecting left dominant side Status: Acute 89 years old woman with underlying probably severe multifactorial, degenerative +vascular, dementia now presenting with combination of left hemiparesis and encephalopathy. Serum sodium is quite high with signs of UTI, which might explain part of her clinical picture. She probably has an ischemic infarct not clearly visible on CT scan of brain. I recommend conservative management and avoidance of aggressive testing which would not lead to any meaningful treatment. For definition, a noncontrast MRI of brain is better. otherwise continue anticoagulation and treat dehydration and infection. Procedures Date of Service Date of Service: 11/19/24
--- NOTE | 2024-11-19 16:34 | MHC.SL.SWA ---
Speech Pathologist Impression:Moderate oropharyngeal dysphagia at baseline Risk of Aspiration Due to: Medically Fragile Reduced Cognition PMH dysphagia Dysphasia Diet Status: Liquid Consistency and Strategies for Safe Swallow: Liquid Intake Recommendation: [place] Thick Liquid Intake Strategies: Small Sips Solid Food Consistency: Dietary Recommendations: Pureed (NDD1) Additional Modifications to Solid Foods: Oral Medication Intake: Crushed with Puree Please contact the pharmacy regarding appropriate crushable or liquid drug formulations that are available whenever modified delivery is recommended. Compensatory Strategies and Precautions to be Taken for Safe Swallow: Sitting Upright (90 deg) Liquids from Wide Cup Small Bites and Sips Alternate Liquids/Solids Rate of Ingestion Change Supervision While Eating and Drinking for Safe Swallow: Total Supervision (1:1) Foods to Avoid: Swallowing Recommended Treatments: Compens. Strategy Educat. Recommendation for Speech: Inpatient Speech Therapy Comment: Pt should be assessed dally while inpatient, anticipate HOUSEKEEPING ASSISTANT intervention is indicated upon d/c to SNF. Frequency/Duration: Daily M-F Date Range for Service Req: Timeline to reassess: Retreader Clinican/Clinical Fellow: No Supervisory Statement: I have reviewed and agree with the student/clinical fellow's documentation: N/A Speech Language Pathologist: Brooke Macias M.S., CCC-HOUSEKEEPING ASSISTANT
--- NOTE | 2024-11-19 16:35 | PC.NURSE ---
assumed care of patient at 1630. patient resting quietly in bed 5 in ER, VSS, rsp even and unlabored. D5LR running at 100ml/hr. patient is awake and alert, does not engage in conversation.
[2024-11-19] MEDS: Apixaban 2.5 MG TABLET PO (22:06)
[2024-11-19] MEDS: Pravastatin Sodium 10 MG TABLET PO (22:06)
[2024-11-19] MEDS: 0.9 % Sodium Chloride Flush 3 ML SYRINGE IVFLUSH (22:07)
[2024-11-20] VITALS (10 sets, daily range): BP systolic 115–160; BP diastolic 62–87; PULSE 66–86; RESP 11–20; TEMP 36.2–36.9; O2SAT 94–100; BMI 17.8
--- NOTE | 2024-11-20 03:59 | PC.NURSE ---
patient resting quietly in room, no obvious signs/symptoms of distress noted. bed change done, fluids remain infusing at this time. call trimble within reach.
[2024-11-20 05:17] LABS: Hematocrit 47.4 % (37.0-47.0); Hemoglobin 14.7 g/dl (12.0-16.0); Mean Corpuscular Hemoglobin 27.4 pg (27.0-33.0); Mean Corpuscular Volume 88.4 fL (80.0-98.0); Mean Platelet Volume 11.5 fL (9.4-12.3); Platelet Count 228 X10*3/uL (160-400); Red Blood Count 5.36 X10*6/uL (4.20-5.50); Red Cell Distribution Width 14.1 % (11.0-16.0); White Blood Count 12.3 X10*3/uL (4.8-10.8)
[2024-11-20 05:32] LABS: Anion Gap 14 (12-20); Blood Urea Nitrogen 42 mg/dL (9-16); Carbon Dioxide 22 mmol/L (22-29); Chloride 118 mmol/L (96-108); Creatinine Clr Calc Pharmacy 33.2; Estimated Glomerular Filt Rate > 60; Glucose Random 160 mg/dL (60-115); Potassium 3.9 mmol/L (3.3-5.1); Sodium 150 mmol/L (135-145)
--- NOTE | 2024-11-20 07:21 | PC.NURSE ---
incontinent of urine. linens changed and patient repositioned. fluids continue to infuse at this time.
[2024-11-20] MEDS: Dextrose 5 % 1,000 ML 100 ML IVCONT ×2 (09:02→21:35)
--- NOTE | 2024-11-20 09:21 | MHC.CM.PN ---
Patient has Dementia; CM spoke with Niece/HCP/Jacquie @ [phone] and addressed IMM with her (original will be mailed certified letter to Niece and a copy will be placed on the chart). Patient has been at [facility] since 09/27/2024 and per Niece, she was working with the @ [facility], looking for LTC. There is no private pay bed hold and no [facility]. ANDREINA has initiated and will follow for dc planning.
--- NOTE | 2024-11-20 11:05 | P.PNIM_ITS ---
Subjective Subjective Date of Service: 11/20/24 Interval History: Patient resting comfortably, answering questions appropriately in few words, complaining of decreased vision times several months, moving right upper and lower extremity, persistent left sided weakness. Review of Systems All other system reviewed and are negative, but limited information . Physical Exam 2 Vital Signs: Vital Signs: Last Vital Signs Temp 98.4 F 11/20/24 10:57 Pulse 79 11/20/24 10:57 Resp 11 L 11/20/24 10:57 BP 160/68 H 11/20/24 10:57 Pulse Ox 98 11/20/24 10:57 O2 Del Method Room Air 11/20/24 10:57 BMI result Body Mass Index 16.9 Const: Other: General resting comfortably in no acute distress. Neck supple no JVD. CVS regular rate rhythm, Respiratory lungs clear to auscultation, no respiratory distress, no wheeze, no rhonchi. Gastrointestinal abdomen soft, non tender, bowel sounds audible, no guarding , no rigidity. Extremities no edema. Neuro persistent left facial droop/left-sided upper and lower extremity flaccid paralysis. Skin no rash Objective Data Active Medications Acetaminophen (Acetaminophen 325 Mg Tablet) 650 mg PO Q6H PRN PRN Reason: Pain, Mild 1-3,fever,headache Apixaban (Apixaban 2.5 Mg Tablet) 2.5 mg PO BID [facility] Last Admin: 11/19/24 22:06 Dose: 2.5 mg Documented By: YAAKOV Calcium Carbonate (Calcium Carbonate 750 Mg Tab.Chew) 750 mg PO Q4H PRN PRN Reason: Heartburn Digoxin (Digoxin 0.125 Mg Tablet) 0.125 mg PO DAILY [facility]; Protocol Dorzolamide HCl (Dorzolamide Hcl 2 % Ophth Yari 10 Ml Drpbtl) 1 drop EYE-BOTH BID [facility] Last Admin: 11/19/24 22:07 Dose: Not Given Documented By: YAAKOV Non-Admin Reason: Med Not Available Dextrose (D5w) 1,000 mls @ 100 mls/hr IVCONT .Q10H [facility] Last Admin: 11/20/24 09:02 Dose: 100 mls/hr Documented By: JO ANN Latanoprost (Latanoprost 0.005 % Ophth Yari 2.5 Ml Drops) 1 drop EYE-BOTH BEDTIME [facility] Last Admin: 11/19/24 22:07 Dose: Not Given Documented By: YAAKOV Non-Admin Reason: Med Not Available Magnesium Hydroxide (Milk Of Magnesia 30 Ml Oral.Susp) 30 ml PO DAILY PRN PRN Reason: Constipation Melatonin (Melatonin 3 Mg Tablet) 6 mg PO BEDTIME PRN PRN Reason: Insomnia Meropenem (Meropenem 1 Gm Vial) 1 gm IVPUSH Q12H JAZMYN Metoprolol Succinate (Metoprolol Succinate Er 50 Mg Tab.Er.24h) 50 mg PO DAILY JAZMYN; Protocol Non-Formulary Medication (Brimonidine) 1 drop EYE-BOTH BID [facility] Ondansetron HCl (Ondansetron Hcl 4 Mg/2 Ml Vial) 4 mg IVPUSH Q8H PRN PRN Reason: Nausea and Vomiting Pravastatin Sodium (Pravastatin Sodium 10 Mg Tablet) 10 mg PO BEDTIME [facility] Last Admin: 11/19/24 22:06 Dose: 10 mg Documented By: YAAKOV Pregabalin (Pregabalin 150 Mg Capsule) 150 mg PO DAILY [facility] Sodium Chloride (0.9 % Sodium Chloride Flush 3 Ml Syringe) 3 ml IVFLUSH QSHIFT [facility] Last Admin: 11/20/24 08:00 Dose: Not Given Documented By: JO ANN Non-Admin Reason: IV Running Labs 11/20/24 04:05 11/20/24 04:05 Labs: Laboratory Results - last 24 hr 11/19/24 11/19/24 11/19/24 11:05 11:06 11:07 MCV 86.7 MCH 27.7 MCHC 31.9 RDW 14.4 Plt Count 272 MPV 11.3 Immature Gran % (Auto) 0.5 H Neut % (Auto) 72.5 Lymph % (Auto) 16.0 L Whitman % (Auto) 7.1 Eos % (Auto) 2.7 Baso % (Auto) 1.2 Lymph # (Auto) 1.8 Whitman # (Auto) 0.8 Eos # (Auto) 0.3 Baso # (Auto) 0.1 Abs Immat Gran (auto) 0.06 H Absolute Neuts (auto) 8.4 H Absolute Nucleated RBC 0.000 Nucleated RBC % (auto) 0.0 Hold Purple Top SEE NOTE PT 18.6 H Whole Blood PT 19.1 H INR 1.6 H Whole Blood INR 1.6 H APTT 29.7 Anion Gap 13 Estim Creat Clear Calc 28.9 Estimated GFR > 60 POC Glucose 152 H Random Glucose 164 H Calcium 9.8 Magnesium 2.2 Total Bilirubin 0.6 Direct Bilirubin 0.3 AST 17 ALT 12 Alkaline Phosphatase 65 Troponin I High Sens 8.1 Total Protein 7.3 Albumin 3.6 Triglycerides 248 H Cholesterol 131 LDL Cholesterol, Calc 63 HDL Cholesterol 19 L Urine Color Urine Appearance Urine pH Ur Specific [place] Urine Protein Urine Glucose (UA) Urine Ketones Urine Blood Urine Nitrite Ur Leukocyte Esterase Urine RBC Urine WBC Urine WBC Clumps Ur Squamous Epith Cells Urine Bacteria Hyaline Casts Influenza Type A (PCR) Influenza Type B (PCR) RSV RNA Qual (PCR) SARS-CoV-2 RNA (RT-PCR) 11/19/24 11/19/24 11/20/24 12:19 12:46 04:05 MCV 88.4 MCH 27.4 MCHC 31.0 RDW 14.1 Plt Count 228 MPV 11.5 Immature Gran % (Auto) Neut % (Auto) Lymph % (Auto) Whitman % (Auto) Eos % (Auto) Baso % (Auto) Lymph # (Auto) Whitman # (Auto) Eos # (Auto) Baso # (Auto) Abs Immat Gran (auto) Absolute Neuts (auto) Absolute Nucleated RBC 0.000 Nucleated RBC % (auto) 0.0 Hold Purple Top PT Whole Blood PT INR Whole Blood INR APTT Anion Gap 14 Estim Creat Clear Calc 33.2 Estimated GFR > 60 POC Glucose Random Glucose 160 H Calcium 10.0 Magnesium Total Bilirubin Direct Bilirubin AST ALT Alkaline Phosphatase Troponin I High Sens Total Protein Albumin Triglycerides Cholesterol LDL Cholesterol, Calc HDL Cholesterol Urine Color Dark Yellow Urine Appearance Turbid Urine pH 5.5 Ur Specific [place] 1.025 Urine Protein 100 (2+) H Urine Glucose (UA) Negative Urine Ketones Negative Urine Blood Large (3+) H Urine Nitrite Positive H Ur Leukocyte Esterase Large (3+) H Urine RBC 6-10 H Urine WBC >50 H Urine WBC Clumps Present Ur Squamous Epith Cells >20 Urine Bacteria 4+ Hyaline Casts 0-2 Influenza Type A (PCR) NEGATIVE Influenza Type B (PCR) NEGATIVE RSV RNA Qual (PCR) NEGATIVE SARS-CoV-2 RNA (RT-PCR) NEGATIVE Microbiology Microbiology Results: Microbiology 11/19/24 Unknown Urine Culture - Preliminary Urine Catheterized - Yates Catheter Culture in progress. Assessment and Plan (1) Hemiparesis: Status: Acute (2) Acute UTI: Status: Acute Plan 89-year-old female with past medical history of it is a less for all dysphagia, AFib on Eliquis, diabetes, HTN, HLD, dementia, wheelchair-bound, presenting to the ED via EMS from [facility] with left-sided facial droop and left-sided body weakness noted by staff at 09:30 in ED patient noted to have left facial paralysis and left-sided weakness initially tachycardic following commands, found to have UTI CT head and CTA head and neck unremarkable. Acute UTI No sepsis History of ESBL positive E coli s/p IV ertapenem X 1 dose on 11/19 ,now on meropenem , urine and blood culture pending Acute left facial droop and left-sided weakness Likely due to acute CVA Not a candidate for tPA since unknown last well time and on Eliquis Normal CT head and CTA LDL 63, total cholesterol 131, continue blood pressure medication Continue Eliquis/chronically wheelchair-bound Speech therapy recommend to resume pureed and nectar thick liquids OT recommend rehab services for optimal gains Seen by Neurology they recommend conservative management and avoid aggressive testing,rec. 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 Code status will change to DNR DNI after speaking with healthcare proxy Jacquie Gonzalez [phone]. DVT prophylaxis on Eliquis Patient will require 2 night inpatient hospitalization for management treatment and expert consultation for acute left-sided facial droop and weakness and IV antibiotics for acute UTI. Quality Stroke Does the patient have a stroke diagnosis?: No VTE Prior VTE?: No VTE Risk Level:: Medical - moderate - high VTE Device Contraindication: Treatment Not Indicated VTE Drug Contraindication: N/A - Med Ordered
[2024-11-20] MEDS: Pregabalin 150 MG CAPSULE PO (11:15)
[2024-11-20] MEDS: Apixaban 2.5 MG TABLET PO ×2 (11:15→21:35)
[2024-11-20] MEDS: Digoxin 0.125 MG TABLET PO (11:15)
[2024-11-20] MEDS: Metoprolol Succinate ER 50 MG TAB.ER.24H PO (11:15)
[2024-11-20] MEDS: lisinopriL 5 MG TABLET PO (11:23)
--- NOTE | 2024-11-20 11:27 | PC.NURSE ---
patient tolerated PO nectar thick liquids well. medications crushed and given in applesauce w/out issue. bed linens changed, pure wick placed d/t repeated incontinence.
[2024-11-20] MEDS: Meropenem 1 GM VIAL IVPUSH (15:41)
--- NOTE | 2024-11-20 15:46 | MHC.SPEECHCO ---
Pt was asleep on arrival. PLUMBING MANAGER repositioned, attempted tactile-thermal stimulation. Pt initiated oral-motor movement but clamped lips close and moved head aside to avoid. No further attempts made. Pt remains in the ED.
[2024-11-20] MEDS: Pravastatin Sodium 10 MG TABLET PO (21:35)
[2024-11-20] MEDS: Dorzolamide HCl 2 % Ophth Sol 10 ML DRPBTL 1 DROP EYE-BOTH (23:17)
[2024-11-20] MEDS: Latanoprost 0.005 % Ophth Sol 2.5 ML DROPS 1 DROP EYE-BOTH (23:17)
[2024-11-21] VITALS (9 sets, daily range): BP systolic 90–138; BP diastolic 48–72; PULSE 54–72; RESP 14–20; TEMP 36–36.9; O2SAT 94–97; BMI 17.8
[2024-11-21] MEDS: Meropenem 1 GM VIAL IVPUSH ×2 (03:36→15:48)
[2024-11-21 07:10] LABS: Hemoglobin 13.8 g/dl (12.0-16.0); Mean Corpuscular HGB Conc 31.4 g/dl (31.0-35.0); Mean Corpuscular Hemoglobin 27.9 pg (27.0-33.0); Mean Corpuscular Volume 89.1 fL (80.0-98.0); Mean Platelet Volume 11.3 fL (9.4-12.3); Platelet Count 205 X10*3/uL (160-400); Red Blood Count 4.94 X10*6/uL (4.20-5.50); Red Cell Distribution Width 14.4 % (11.0-16.0); White Blood Count 12.1 X10*3/uL (4.8-10.8)
[2024-11-21 07:26] LABS: Anion Gap 14 (12-20); Blood Urea Nitrogen 30 mg/dL (9-16); Calcium 9.1 mg/dL (8.4-10.2); Carbon Dioxide 23 mmol/L (22-29); Chloride 111 mmol/L (96-108); Creatinine Clr Calc Pharmacy 38.6; Estimated Glomerular Filt Rate > 60; Glucose Random 149 mg/dL (60-115); Potassium 3.5 mmol/L (3.3-5.1); Sodium 144 mmol/L (135-145)
[2024-11-21] MEDS: Metoprolol Succinate ER 50 MG TAB.ER.24H PO (08:40)
[2024-11-21] MEDS: Apixaban 2.5 MG TABLET PO ×2 (08:40→21:52)
[2024-11-21] MEDS: lisinopriL 5 MG TABLET PO (08:40)
[2024-11-21] MEDS: Digoxin 0.125 MG TABLET PO (08:40)
[2024-11-21] MEDS: Pregabalin 150 MG CAPSULE PO (08:40)
[2024-11-21] MEDS: Dextrose 5 % 1,000 ML 100 ML IVCONT (08:41)
[2024-11-21] MEDS: 0.9 % Sodium Chloride Flush 3 ML SYRINGE IVFLUSH ×3 (08:41→21:52)
[2024-11-21] MEDS: Dorzolamide HCl 2 % Ophth Sol 10 ML DRPBTL 1 DROP EYE-BOTH ×2 (08:41→22:00)
--- NOTE | 2024-11-21 10:35 | MHC.CM.PN ---
Per ROUNDS discussion, Patient is not yet medically cleared for dc (urine cultures are pending); returning to [facility] is the Patient's goal and CM will continue to follow.
--- NOTE | 2024-11-21 11:43 | MHC.CM.PN ---
Family has decided to pay privately to hold the bed at [facility]; it is Patient/family's goal to return to [facility] at time of dc. CM will follow.
--- NOTE | 2024-11-21 13:06 | MHC.SLORD ---
Speech Language Pathology Order Status: OFFICE SUPPORT SPECIALIST and RN consulted, pt very sleepy. No concerns for PO tolerance of pureed/nectar-thickened consistencies, which is pt baseline diet. Pt will be d/c'd to SNF, recc [employer] continue to follow in monitoring dysphagia status while inpatient and at facility upon returning to prior residence.
--- NOTE | 2024-11-21 13:23 | MHC.CLN ---
PT IS MODERATELY MALNOURISHED PT WITH MILDLY DEPLETED SUBCUTANEOUS FAT AND MUSCLE MASS WITH BMI 17 AND CHRONIC POOR PO INTAKE AND INCREASED NEEDS R/T PRESSURE INJURY DIET RX: 2000DM PUREED WITH NT LIQ-WILL LIBERALIZE TO OFFER VARIETY RECOMMEND ADDING ENSURE BID TO PROMOTE WOUND HEALING SUPP TO PROVIDE 700KCALS, 40G PROTEIN MONITOR PO INTAKE AND ENCOURAGE SUPPLEMENTS SEE ALSO FULL CLINICAL NUTRITION ASSESSMENT
--- NOTE | 2024-11-21 14:31 | P.PNIM_ITS ---
Subjective Subjective Date of Service: 11/21/24 Physical Exam 2 Vital Signs: Vital Signs: Last Vital Signs Temp 98.5 F 11/21/24 11:19 Pulse 58 11/21/24 11:19 Resp 18 11/21/24 11:19 BP 90/48 L 11/21/24 11:56 Pulse Ox 96 11/21/24 11:19 O2 Del Method Room Air 11/21/24 11:19 O2 Flow Rate 2 11/20/24 19:32 BMI result Body Mass Index 17.8 Const: Other: General resting comfortably in no acute distress. Neck supple no JVD. CVS regular rate rhythm, Respiratory lungs clear to auscultation, no respiratory distress, no wheeze, no rhonchi. Gastrointestinal abdomen soft, non tender, bowel sounds audible, no guarding , no rigidity. Extremities no edema. Neuro persistent left facial droop/left-sided upper and lower extremity flaccid paralysis, garbled speech. Skin no rash Objective Data Active Medications Acetaminophen (Acetaminophen 325 Mg Tablet) 650 mg PO Q6H PRN PRN Reason: Pain, Mild 1-3,fever,headache Apixaban (Apixaban 2.5 Mg Tablet) 2.5 mg PO BID [facility] Last Admin: 11/21/24 08:40 Dose: 2.5 mg Documented By: SANDI Calcium Carbonate (Calcium Carbonate 750 Mg Tab.Chew) 750 mg PO Q4H PRN PRN Reason: Heartburn Digoxin (Digoxin 0.125 Mg Tablet) 0.125 mg PO DAILY [facility]; Protocol Last Admin: 11/21/24 08:40 Dose: 0.125 mg Documented By: SANDI Dorzolamide HCl (Dorzolamide Hcl 2 % Ophth Yari 10 Ml Drpbtl) 1 drop EYE-BOTH BID [facility] Last Admin: 11/21/24 08:41 Dose: 1 drop Documented By: SANDI Dextrose (D5w) 1,000 mls @ 100 mls/hr IVCONT .Q10H [facility] Last Admin: 11/21/24 12:22 Dose: Not Given Documented By: SANDI Non-Admin Reason: Bag still full Latanoprost (Latanoprost 0.005 % Ophth Yari 2.5 Ml Drops) 1 drop EYE-BOTH BEDTIME [facility] Last Admin: 11/20/24 23:17 Dose: 1 drop Documented By: CAMERON Lisinopril (Lisinopril 5 Mg Tablet) 5 mg PO DAILY [facility]; Protocol Last Admin: 11/21/24 08:40 Dose: 5 mg Documented By: SANDI Magnesium Hydroxide (Milk Of Magnesia 30 Ml Oral.Susp) 30 ml PO DAILY PRN PRN Reason: Constipation Melatonin (Melatonin 3 Mg Tablet) 6 mg PO BEDTIME PRN PRN Reason: Insomnia Meropenem (Meropenem 1 Gm Vial) 1 gm IVPUSH Q12H [facility] Last Admin: 11/21/24 03:36 Dose: 1 gm Documented By: CAMERON Metoprolol Succinate (Metoprolol Succinate Er 50 Mg Tab.Er.24h) 50 mg PO DAILY [facility]; Protocol Last Admin: 11/21/24 08:40 Dose: 50 mg Documented By: SANDI Non-Formulary Medication (Brimonidine) 1 drop EYE-BOTH BID [facility] Ondansetron HCl (Ondansetron Hcl 4 Mg/2 Ml Vial) 4 mg IVPUSH Q8H PRN PRN Reason: Nausea and Vomiting Pravastatin Sodium (Pravastatin Sodium 10 Mg Tablet) 10 mg PO BEDTIME [facility] Last Admin: 11/20/24 21:35 Dose: 10 mg Documented By: CAMERON Pregabalin (Pregabalin 150 Mg Capsule) 150 mg PO DAILY [facility] Last Admin: 11/21/24 08:40 Dose: 150 mg Documented By: SANDI Sodium Chloride (0.9 % Sodium Chloride Flush 3 Ml Syringe) 3 ml IVFLUSH QSHIFT [facility] Last Admin: 11/21/24 08:41 Dose: 3 ml Documented By: SANDI Labs 11/21/24 06:33 11/21/24 06:33 Labs: Laboratory Results - last 24 hr 11/21/24 06:33 MCV 89.1 MCH 27.9 MCHC 31.4 RDW 14.4 Plt Count 205 MPV 11.3 Absolute Nucleated RBC 0.000 Nucleated RBC % (auto) 0.0 Anion Gap 14 Estim Creat Clear Calc 38.6 Estimated GFR > 60 Random Glucose 149 H Calcium 9.1 D Microbiology Microbiology Results: Microbiology 11/19/24 11:05 Blood Culture - Preliminary Blood - Venous No growth after 48 hours. 11/19/24 Unknown Urine Culture - Preliminary Urine Catheterized - Yates Catheter Gram negative raymond 11/19/24 12:46 Blood Culture - Preliminary Blood - Venous No growth after 24 hours. Assessment and Plan (1) Hemiparesis: Status: Acute (2) Encephalopathy: Status: Acute (3) Acute UTI: Status: Acute Plan 89-year-old female with past medical history of it is a less for all dysphagia, AFib on Eliquis, diabetes, HTN, HLD, dementia, wheelchair-bound, presenting to the ED via EMS from [facility] with left-sided facial droop and left-sided body weakness noted by staff at 09:30 in ED patient noted to have left facial paralysis and left-sided weakness initially tachycardic following commands, found to have UTI CT head and CTA head and neck unremarkable. Acute UTI No sepsis History of ESBL positive E coli s/p IV ertapenem X 1 dose,now on meropenem started on 11/19 , urine culture grew Gram-negative raymond final sensitivities pending and blood culture neg. Acute left facial droop and left-sided weakness Likely due to acute CVA Not a candidate for tPA since unknown last well time and on Eliquis Normal CT head and CTA LDL 63, total cholesterol 131, continue blood pressure medication Continue Eliquis/chronically wheelchair-bound Speech therapy recommended to resume pureed and nectar thick liquids OT recommend rehab services for optimal gains Seen by Neurology they recommend conservative management and avoid aggressive testing,rec. 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 Code status changed to DNR DNI after speaking with healthcare proxy Jacquie Gonzalez [phone]. DVT prophylaxis on Eliquis Patient will require inpatient hospitalization for management treatment and expert consultation for acute left-sided facial droop and weakness and IV antibiotics for acute UTI. Quality Stroke Does the patient have a stroke diagnosis?: No VTE Prior VTE?: No VTE Risk Level:: Medical - moderate - high VTE Device Contraindication: Treatment Not Indicated VTE Drug Contraindication: N/A - Med Ordered
--- NOTE | 2024-11-21 16:24 | HO.WOUND ---
Wound Consult: Initial 89yr old?F admitted to [facility] [place]24 - See progress notes and H&P for detailed history.? Wound consult placed for Coccyx wound POA.? Patient agreeable to assessment and photo documentation.? However she did not open her eyes throughout my consultation nor verbally respond in any way this was her baseline per direct care team. Left Elbow - Deep Tissue Injury POA - Maroon red purple nonblanchable intact tissue - Foam dressing applied Left Heel - Deep Tissue Injury POA - Maroon red purple nonblanchable intact tissue - Foam dressing applied Coccyx - Unstageable Pressure Injury POA - Adherent slough to wound bed - red maroon slow to planch periwound. Foam dressing applied with barrier cream to perianal area. Off Load with pillows and EDISON pump applied while at bedside. Recommendations: 1. Turn and Reposition every 2 hours and as needed for patient comfort.? Use pillows or wedges to support off loading positions. 2. Off Load all bony prominences with use of pillows and heel boots if needed.? Apply Preventative foams where needed. ? 3. Monitor for incontinence and moisture control, use barrier creams when needed for prevention and treatment. 4. Provide adequate and supplemental nutrition.? 5. Order low air loss mattress. 6. When applicable maintain blood glucose levels per Providers order. 7. Left Heel and Left Elbow - Apply skin prep allow to dry. Apply foam dressing change every 5 days and PRN. Peel back and assess Q shift. May apply preventative foam to right heel. Elevate off of bed surface with use of pillows. 8. Coccyx - Off Load Pressure with Q2hr turns and pillows. Cleanse with NS, pat dry. Apply Foam dressing, peel back and assess Q shift and change every 3 days and PRN. May use barrier cream is foam dressing is soiled frequently. Re-consult wound care Nurse for wound deterioration or wound changes.
[2024-11-21] MEDS: Pravastatin Sodium 10 MG TABLET PO (21:52)
[2024-11-21] MEDS: Latanoprost 0.005 % Ophth Sol 2.5 ML DROPS 1 DROP EYE-BOTH (22:00)
[2024-11-22 04:00] VITALS: BP 105/55; PULSE 53; RESP 16; TEMP 36.7; O2SAT 96
[2024-11-22] MEDS: Meropenem 1 GM VIAL IVPUSH ×2 (04:00→14:18)
[2024-11-22 07:43] VITALS: BP 110/58; PULSE 62; RESP 16; TEMP 36.3; O2SAT 95
[2024-11-22 08:43] VITALS: BP 110/58
[2024-11-22] MEDS: Dorzolamide HCl 2 % Ophth Sol 10 ML DRPBTL 1 DROP EYE-BOTH ×2 (08:43→20:50)
[2024-11-22] MEDS: lisinopriL 5 MG TABLET PO (08:43)
[2024-11-22] MEDS: Apixaban 2.5 MG TABLET PO ×2 (08:43→20:43)
[2024-11-22] MEDS: 0.9 % Sodium Chloride Flush 3 ML SYRINGE IVFLUSH ×3 (08:43→20:44)
[2024-11-22] MEDS: Pregabalin 150 MG CAPSULE PO (08:43)
--- NOTE | 2024-11-22 11:56 | MHC.SLORD ---
Speech Language Pathology Order Status: Patient sleeping with open mouth posture, not responding to sternal rub. No PO trials given at this time. Hold tray until patient is awake and alert, able to attend to meal. SIPHONER to f/u tomorrow morning.
[2024-11-22 11:58] VITALS: BP 113/65; PULSE 67; RESP 18; TEMP 36.2; O2SAT 95
--- NOTE | 2024-11-22 14:11 | HO.PM.IMPN ---
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 Review of Systems All other system reviewed and are negative Physical Exam Vital Signs: Vital Signs: Last Vital Signs Temp 97.2 F 11/22/24 11:58 Pulse 67 11/22/24 11:58 Resp 18 11/22/24 11:58 BP 113/65 11/22/24 11:58 Pulse Ox 95 11/22/24 11:58 O2 Del Method Room Air 11/22/24 11:58 O2 Flow Rate 2 11/20/24 19:32 BMI result Body Mass Index 17.8 Const: Other: General resting comfortably in no acute distress. Neck supple no JVD. CVS regular rate rhythm, Respiratory lungs clear to auscultation, no respiratory distress, no wheeze, no rhonchi. Gastrointestinal abdomen soft, non tender, bowel sounds audible, no guarding , no rigidity. Extremities no edema. Neuro persistent left facial droop/left-sided upper and lower extremity flaccid paralysis, clear speech. Skin no rash Objective Data Active Medications Acetaminophen (Acetaminophen 325 Mg Tablet) 650 mg PO Q6H PRN PRN Reason: Pain, Mild 1-3,fever,headache Apixaban (Apixaban 2.5 Mg Tablet) 2.5 mg PO BID [facility] Last Admin: 11/22/24 08:43 Dose: 2.5 mg Documented By: SANDI Calcium Carbonate (Calcium Carbonate 750 Mg Tab.Chew) 750 mg PO Q4H PRN PRN Reason: Heartburn Digoxin (Digoxin 0.125 Mg Tablet) 0.125 mg PO DAILY [facility]; Protocol Last Admin: 11/22/24 08:44 Dose: Not Given Documented By: SANDI Non-Admin Reason: Decreased Heart Rate Dorzolamide HCl (Dorzolamide Hcl 2 % Ophth Yari 10 Ml Drpbtl) 1 drop EYE-BOTH BID [facility] Last Admin: 11/22/24 08:43 Dose: 1 drop Documented By: SANDI Latanoprost (Latanoprost 0.005 % Ophth Yari 2.5 Ml Drops) 1 drop EYE-BOTH BEDTIME [facility] Last Admin: 11/21/24 22:00 Dose: 1 drop Documented By: LAYLA Lisinopril (Lisinopril 5 Mg Tablet) 5 mg PO DAILY [facility]; Protocol Last Admin: 11/22/24 08:43 Dose: 5 mg Documented By: SANDI Magnesium Hydroxide (Milk Of Magnesia 30 Ml Oral.Susp) 30 ml PO DAILY PRN PRN Reason: Constipation Melatonin (Melatonin 3 Mg Tablet) 6 mg PO BEDTIME PRN PRN Reason: Insomnia Meropenem (Meropenem 1 Gm Vial) 1 gm IVPUSH Q12H [facility] Last Admin: 11/22/24 04:00 Dose: 1 gm Documented By: LAYLA Metoprolol Succinate (Metoprolol Succinate Er 50 Mg Tab.Er.24h) 50 mg PO DAILY [facility]; Protocol Last Admin: 11/22/24 08:52 Dose: Not Given Documented By: SANDI Non-Admin Reason: Decreased Heart Rate Non-Formulary Medication (Brimonidine) 1 drop EYE-BOTH BID [facility] Ondansetron HCl (Ondansetron Hcl 4 Mg/2 Ml Vial) 4 mg IVPUSH Q8H PRN PRN Reason: Nausea and Vomiting Pravastatin Sodium (Pravastatin Sodium 10 Mg Tablet) 10 mg PO BEDTIME [facility] Last Admin: 11/21/24 21:52 Dose: 10 mg Documented By: LAYAL Pregabalin (Pregabalin 150 Mg Capsule) 150 mg PO DAILY [facility] Last Admin: 11/22/24 08:43 Dose: 150 mg Documented By: SANDI Sodium Chloride (0.9 % Sodium Chloride Flush 3 Ml Syringe) 3 ml IVFLUSH QSHIFT [facility] Last Admin: 11/22/24 08:43 Dose: 3 ml Documented By: SANDI Labs 11/21/24 06:33 11/21/24 06:33 Microbiology Microbiology Results: Microbiology 11/19/24 Unknown Urine Culture - Final Urine Catheterized - Yates Catheter Escherichia coli 11/19/24 12:46 Blood Culture - Preliminary Blood - Venous No growth after 48 hours. 11/19/24 11:05 Blood Culture - Preliminary Blood - Venous No growth after 48 hours. Assessment and Plan (1) Hemiparesis: Status: Acute (2) Encephalopathy: Status: Acute (3) Acute UTI: Status: Acute Plan 89-year-old female with past medical history of it is a less for all dysphagia, AFib on Eliquis, diabetes, HTN, HLD, dementia, wheelchair-bound, presenting to the ED via EMS from [facility] with left-sided facial droop and left-sided body weakness noted by staff at 09:30 in ED patient noted to have left facial paralysis and left-sided weakness initially tachycardic following commands, found to have UTI CT head and CTA head and neck unremarkable. Acute UTI No sepsis History of ESBL positive E coli s/p IV ertapenem X 1 dose,now on meropenem started on 11/19 , urine culture grew ESBL positive E coli, sensitive to ertapenem, gentamicin nitrofurantoin and Bactrim, blood culture neg. Will discuss choice and duration of antibiotic with ID Acute left facial droop and left-sided weakness Likely due to acute CVA Not a candidate for tPA since unknown last well time and on Eliquis Normal CT head and CTA LDL 63, total cholesterol 131, continue blood pressure medication Continue Eliquis/chronically wheelchair-bound Continue pureed and nectar thick liquids OT recommend rehab services for optimal gains Seen by Neurology they recommend conservative management and avoid aggressive testing,rec. 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 Chronic persistent Atrial fibrillation EKG showed atrial fibrillation, marked ST abnormality , no chest pain ,normal troponin 8.1, no further workup warranted Continue Eliquis and metoprolol, will DC digoxin Acute toxic metabolic encephalopathy resolved seems to be at baseline/likely worsening symptoms were due to acute UTI/cva Diabetes mellitus type 2 diabetic diet , resume metformin upon discharge Acute hypernatremia sodium 150, sodium improved s/p IV fluids Moderate protein calorie malnutrition add supplements Unspecified dementia frequent reorientation resume Lyrica once able to tolerate by mouth. Hypertension soft blood pressure will DC lisinopril and continue metoprolol. Code status changed to DNR DNI after speaking with healthcare proxy Jacquie Gonzalez [phone]. DVT prophylaxis on Eliquis Patient will require inpatient hospitalization for management treatment and expert consultation for acute left-sided facial droop and weakness and IV antibiotics for acute UTI. Quality Stroke Does the patient have a stroke diagnosis?: No VTE Prior VTE?: No VTE Risk Level:: Medical - moderate - high VTE Device Contraindication: Treatment Not Indicated VTE Drug Contraindication: N/A - Med Ordered
[2024-11-22 16:00] VITALS: BP 112/55; PULSE 60; RESP 16; TEMP 36.2; O2SAT 95
[2024-11-22 20:00] VITALS: BP 115/65; PULSE 59; RESP 16; TEMP 37; O2SAT 94
[2024-11-22] MEDS: Pravastatin Sodium 10 MG TABLET PO (20:43)
[2024-11-22] MEDS: Melatonin 3 MG TABLET 6 MG PO (20:44)
[2024-11-22] MEDS: Latanoprost 0.005 % Ophth Sol 2.5 ML DROPS 1 DROP EYE-BOTH (20:50)
--- NOTE | 2024-11-22 22:06 | W.PM.IDCN ---
History of Present Illness Data of Consult Service Date: 11/22/24 Primary Care Provider: John Santoyo MD HPI Reason for consult: UTI, ESBL E coli She presents with weakness left side urgently. She has presumed CVA . She also has hematuria. Review of Systems Review of Systems: Yes Unobtainable due to mental condition [facility] Family History Family history: reviewed and not pertinent Social History Social History Household Members: Other Household Members Other:: SNF Housing: [facility] Do you presently have visiting nurse or other home services: Yes Patient Tobacco Use Status: Never used Tobacco service: No Meds Allergies Allergy/AdvReac Type Severity Reaction Status Date / Time No Known Allergies Allergy Verified 11/19/24 11:12 Active Medications: Current Medications Acetaminophen (Acetaminophen 325 Mg Tablet) 650 mg PO Q6H PRN PRN Reason: Pain, Mild 1-3,fever,headache Apixaban (Apixaban 2.5 Mg Tablet) 2.5 mg PO BID [facility] Last Admin: 11/22/24 20:43 Dose: 2.5 mg Calcium Carbonate (Calcium Carbonate 750 Mg Tab.Chew) 750 mg PO Q4H PRN PRN Reason: Heartburn Dorzolamide HCl (Dorzolamide Hcl 2 % Ophth Yari 10 Ml Drpbtl) 1 drop EYE-BOTH BID [facility] Last Admin: 11/22/24 20:50 Dose: 1 drop Latanoprost (Latanoprost 0.005 % Ophth Yari 2.5 Ml Drops) 1 drop EYE-BOTH BEDTIME [facility] Last Admin: 11/22/24 20:50 Dose: 1 drop Magnesium Hydroxide (Milk Of Magnesia 30 Ml Oral.Susp) 30 ml PO DAILY PRN PRN Reason: Constipation Melatonin (Melatonin 3 Mg Tablet) 6 mg PO BEDTIME PRN PRN Reason: Insomnia Last Admin: 11/22/24 20:44 Dose: 6 mg Meropenem (Meropenem 1 Gm Vial) 1 gm IVPUSH Q12H [facility] Last Admin: 11/22/24 14:18 Dose: 1 gm Metoprolol Succinate (Metoprolol Succinate Er 50 Mg Tab.Er.24h) 50 mg PO DAILY [facility]; Protocol Last Admin: 11/22/24 08:52 Dose: Not Given Non-Formulary Medication (Brimonidine) 1 drop EYE-BOTH BID [facility] Ondansetron HCl (Ondansetron Hcl 4 Mg/2 Ml Vial) 4 mg IVPUSH Q8H PRN PRN Reason: Nausea and Vomiting Pravastatin Sodium (Pravastatin Sodium 10 Mg Tablet) 10 mg PO BEDTIME [facility] Last Admin: 11/22/24 20:43 Dose: 10 mg Pregabalin (Pregabalin 150 Mg Capsule) 150 mg PO DAILY [facility] Last Admin: 11/22/24 08:43 Dose: 150 mg Sodium Chloride (0.9 % Sodium Chloride Flush 3 Ml Syringe) 3 ml IVFLUSH QSHIFT [facility] Last Admin: 11/22/24 20:44 Dose: 3 ml Home Medications ?Medication ?Instructions ?Recorded ?Confirmed ?Last Taken ?Type acetaminophen 325 mg tablet 650 mg PO Q8H PRN Fever Or Pain 11/19/24 11/19/24 Unknown History alendronate 70 mg tablet 70 mg PO MO 11/19/24 11/19/24 Unknown History apixaban 2.5 mg tablet (Eliquis) 2.5 mg PO BID 11/19/24 11/19/24 Unknown History bisacodyl 10 mg rectal suppository 10 mg VT DAILY PRN Constipation 11/19/24 11/19/24 Unknown History (Dulcolax (bisacodyl)) brimonidine 0.15 % eye drops 1 drp ophthalmic (eye) BID 11/19/24 11/19/24 Unknown History cholecalciferol (vitamin D3) 25 25 mcg PO DAILY 11/19/24 11/19/24 Unknown History mcg (1,000 unit) capsule (Vitamin D3) digoxin 125 mcg (0.125 mg) tablet 125 mcg PO DAILY 11/19/24 11/19/24 Unknown History dorzolamide 2 % eye drops 1 drp ophthalmic (eye) BID 11/19/24 11/19/24 Unknown History latanoprost 0.005 % eye drops 1 drp ophthalmic (eye) BEDTIME 11/19/24 11/19/24 Unknown History lisinopril 5 mg tablet 5 mg PO DAILY 11/19/24 11/19/24 Unknown History magnesium hydroxide 400 mg/5 mL 30 ml PO DAILY PRN Constipation 11/19/24 11/19/24 Unknown History oral suspension (Milk of Magnesia) metformin 500 mg tablet 500 mg PO DAILY 11/19/24 11/19/24 Unknown History metoprolol succinate 50 mg 50 mg PO DAILY 11/19/24 11/19/24 Unknown History tablet,extended release 24 hr pravastatin 10 mg tablet 10 mg PO BEDTIME 11/19/24 11/19/24 Unknown History pregabalin 150 mg capsule (Lyrica) 150 mg PO DAILY 11/19/24 11/19/24 Unknown History sodium phosphates 19 gram-7 118 ml VT DAILY PRN Constipation 11/19/24 11/19/24 Unknown History gram/118 mL enema (Fleet Enema) Physical Exam Vital Signs: Vital Signs: Last Vital Signs Temp 98.6 F 11/22/24 20:00 Pulse 59 11/22/24 20:00 Resp 16 11/22/24 20:00 BP 115/65 11/22/24 20:00 Pulse Ox 94 11/22/24 20:00 O2 Del Method Room Air 11/22/24 20:00 O2 Flow Rate 2 11/20/24 19:32 BMI result Body Mass Index 17.8 Const: General: cooperative HEENT: Head: Yes normal to inspection Face and sinus: Yes normal facial exam Mouth: Normal oral and palatal mucosa present Teeth and gingiva: dentition normal Eyes: General: appearance normal, both eyes and all related structures Pupils: Equal, round and reactive pupils present Resp: Effort & Inspection: normal respiratory effort Cardio: Rate: regular rate Rhythm: regular rhythm GI: Palpation (GI): Soft to palpation and nontender : General: Yes no CVA tenderness Back/Spine/Pelvis: Back: no CVA tenderness Skin: General skin exam: no rashes or lesions noted Neuro: General: moves all extremities Cranial nerves: Yes Equal, round and reactive pupils present Extrem: General: Yes normal to inspection Psych: Other: encephalopathic Results Labs 11/21/24 06:33 11/21/24 06:33 Microbiology Microbiology Results: Microbiology 11/19/24 Unknown Urine Catheterized - Yates Catheter Urine Culture - Final Escherichia coli 11/19/24 12:46 Blood - Venous Blood Culture - Preliminary No growth after 48 hours. 11/19/24 11:05 Blood - Venous Blood Culture - Preliminary No growth after 48 hours. Assessment and Plan (1) Hemiparesis: Qualifiers: Hemiparesis etiology: unspecified Hemiparesis laterality: left dominant side Qualified Code(s): G81.92 - Hemiplegia, unspecified affecting left dominant side Status: Acute (2) Encephalopathy: Status: Acute (3) Acute UTI: Status: Acute Plan She has true UTI with hematuria. She has ESBL infection She has received four days Merem. Would finish with four days po Bactrim DS bid.
[2024-11-23] VITALS: BP 100/59; PULSE 51; RESP 14; TEMP 36.3; O2SAT 97
[2024-11-23] MEDS: Meropenem 1 GM VIAL IVPUSH (02:59)
[2024-11-23 04:00] VITALS: BP 119/68; PULSE 60; RESP 14; TEMP 36.8; O2SAT 95
[2024-11-23 07:07] VITALS: BP 99/54; PULSE 60; RESP 18; TEMP 36.1; O2SAT 96
[2024-11-23 08:26] VITALS: BP 108/60
[2024-11-23] MEDS: Apixaban 2.5 MG TABLET PO (08:30)
[2024-11-23] MEDS: Dorzolamide HCl 2 % Ophth Sol 10 ML DRPBTL 1 DROP EYE-BOTH (08:30)
[2024-11-23] MEDS: Pregabalin 150 MG CAPSULE PO (08:30)
[2024-11-23] MEDS: 0.9 % Sodium Chloride Flush 3 ML SYRINGE IVFLUSH (08:33)
[2024-11-23 11:10] VITALS: BP 110/56; PULSE 69; RESP 18; TEMP 36.7; O2SAT 95
--- NOTE | 2024-11-23 11:10 | P.DS_ITS ---
DS: Providers Provider Date of Service: 11/23/24 Date of admission: 11/19/24 13:40 Date of discharge: 11/23/24 Primary care physician: John Santoyo MD Consults: 11/19/24 12:40 Consult to Infectious Diseases Routine Consulting Provider: JOSSE ROCHA Reason for consultation: History E coli ESBL UTI Has provider been notified: No 11/19/24 14:09 Consult to Neurology Routine Consulting Provider: [facility] Reason for consultation: left sided weakness/facial droop Has provider been notified: No 11/20/24 18:41 Consult to Wound Care Routine Reason for consultation: open skin to coccyx Has provider been notified: No 11/22/24 10:04 Consult to Infectious Diseases Routine Consulting Provider: [facility] Reason for consultation: esbl + e.coli Has provider been notified: No DS: Diagnosis Discharge Diagnosis (1) Hemiparesis: Status: Acute (2) Encephalopathy: Status: Acute (3) Acute UTI: Status: Acute DS: Summary Hospital Course Hospital Course: History of presenting illness: Date of Service: 11/19/24 Chief Complaint: Left facial droop/left-sided weakness 89 year old female resident of [facility] with past medical history of dysphagia on pureed and nectar thick liquids, AFib on Eliquis, diabetes, hypertension, hyperlipidemia, dementia, wheelchair-bound presented to emergency room via EMS due to left-sided facial droop and left sided weakness noted by staff at 09:30 unknown last well time, labs showed mild leukocytosis WBC 11.5 stable H&H and platelets, sodium 150, blood sugar 164 BUN 47 with normal creatinine 0.86,due to concern for acute CVA versus intracranial hemorrhage CT head and CTA was obtained, CT head showed no acute intracranial process, showed old left inferior cerebellar and left occipital 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 Hospital course: 89-year-old female with past medical history of dysphagia, AFib on Eliquis, diabetes, HTN, HLD, dementia, wheelchair-bound, presenting to the ED via EMS from [facility] with left-sided facial droop and left-sided body weakness noted by staff ,in ED patient noted to have left facial paralysis and left-sided weakness initially tachycardic, following commands, found to have UTI, CT head and CTA head and neck unremarkable. Admitted to intermediate care unit for following medical issues. Acute UTI noted to have no sepsis treated with IV ertapenem x1 dose in the emergency room and then was placed on meropenem due to prior history of ESBL positive E coli, repeat blood cultures were negative however urine culture grew ESBL positive E coli patient received 4 days of IV meropenem and now being discharged on by mouth Bactrim 1 tablet twice daily to finish a total 8 day course of antibiotic as per ID recommendation. Acute left facial droop and left-sided weakness, clinically diagnosed to have acute CVA,not a candidate for tPA since unknown last well time and on Eliquis,Normal CT head and CTA,LDL 63, total cholesterol 131, was seen by Neurology they recommend conservative management, noncontrast MRI brain was not obtained since it it would not have change the management,, spoke with healthcare proxy and she agreed,Continue pureed and nectar thick liquids, OT recommend rehab services for optimal gains Chronic persistent Atrial fibrillation, EKG showed atrial fibrillation, marked ST abnormality , no chest pain ,normal troponin 8.1, no further workup warranted, noted to have bradycardia and soft BP therefore digoxin and lisinopril discontinued dose of metoprolol decreased to 25 mg daily. Acute toxic metabolic encephalopathy resolved, seems to be at baseline/likely worsening symptoms were due to acute UTI/cva Diabetes mellitus type 2 diabetic diet , resume metformin Acute hypernatremia sodium 150, sodium improved s/p IV fluids, recommend to push by mouth fluids Moderate protein calorie malnutrition added supplements Unspecified dementia frequent reorientation, continue Lyrica Hypertension soft blood pressure continue low-dose metoprolol, lisinopril discontinued. Urinary retention Yates catheter placed due to urinary retention recommend to voiding trial at facility. Time Attestation Discharge Coordination Time (in mins): 40 Quality: Safe Use of Opioids Does Pt have an Active Cancer Diagnosis on the Problem List?: No Quality: Stroke Does the patient have a stroke diagnosis?: No Physical Exam Vital Signs: Vital Signs: Last Vital Signs Temp 97.0 F 11/23/24 07:07 Pulse 60 11/23/24 07:07 Resp 18 11/23/24 07:07 BP 108/60 11/23/24 08:26 Pulse Ox 96 11/23/24 07:07 O2 Del Method Room Air 11/23/24 07:07 O2 Flow Rate 2 11/20/24 19:32 BMI result Body Mass Index 17.8 Const: Other: General resting comfortably in no acute distress. Neck supple no JVD. CVS regular rate rhythm, Respiratory lungs clear to auscultation, no respiratory distress, no wheeze, no rhonchi. Gastrointestinal abdomen soft, non tender, bowel sounds audible, no guarding , no rigidity. Extremities no edema. Neuro persistent left facial droop/left-sided upper and lower extremity flaccid paralysis, clear speech. Skin no rash DS: Data Data Completed and Pending Labs on day of discharge: Preliminary micro results at discharge 11/19/24 12:46 Blood Culture - Preliminary Blood - Venous No growth after 48 hours. 11/19/24 11:05 Blood Culture - Preliminary Blood - Venous No growth after 48 hours. Discharge Plan Discharge Anticipated Discharge Date/Time: 11/23/24 11:03 Patient Disposition: er SNF Discharge Diagnosis: Acute CVA Acute UTI ESBL positive E coli Referrals: [facility] [Outside] - 1 Week John Santoyo MD [Primary Care Provider] - 1 Week Discharge Medications: New metoprolol succinate [Toprol XL] 25 mg tablet extended release 24 hr 25 mg PO DAILY Qty: 30 0RF sulfamethoxazole-trimethoprim [Bactrim DS] 800-160 mg tablet 1 tab PO BID Qty: 7 0RF Continued latanoprost 0.005 % Drops 1 drp OPHTHALMIC (EYE) BEDTIME Rx Instructions: Both Eyes metformin 500 mg Tablet 500 mg PO DAILY acetaminophen 325 mg Tablet 650 mg PO Q8H PRN (Reason: Fever Or Pain) alendronate 70 mg tablet 70 mg PO MO pravastatin 10 mg tablet 10 mg PO BEDTIME magnesium hydroxide [Milk of Magnesia] 400 mg/5 mL Suspension 30 ml PO DAILY PRN (Reason: Constipation) bisacodyl [Dulcolax (bisacodyl)] 10 mg Suppository 10 mg OK DAILY PRN (Reason: Constipation) Rx Instructions: If no BM in 3 days and M.O.M ineffective Fleet Enema 19-7 gram/118 mL Enema 118 ml OK DAILY PRN (Reason: Constipation) brimonidine 0.15 % drops 1 drp ophthalmic (eye) BID Rx Instructions: Both eyes dorzolamide 2 % drops 1 drp ophthalmic (eye) BID cholecalciferol (vitamin D3) [Vitamin D3] 25 mcg (1,000 unit) capsule 25 mcg PO DAILY pregabalin [Lyrica] 150 mg Capsule 150 mg PO DAILY Eliquis 2.5 mg tablet 2.5 mg PO BID Discontinued metoprolol succinate 50 mg tablet extended release 24 hr 50 mg PO DAILY lisinopril 5 mg Tablet 5 mg PO DAILY digoxin 125 mcg (0.125 mg) tablet 125 mcg PO DAILY Discharge Orders: Discharge Order (Routine); Ordered 11/23/24 Ordered By: Patti Tobin Diet: Diabetic diet Activity on Discharge: As tolerated Stand Alone Forms: Patient Portal Discharge page Print Language: Estonian Care Plan Goals: Acute CVA with left-sided weakness recommend occupational therapy/PT as tolerated Acute UTI take Bactrim ds 1 tablet twice daily total 7 tablet dispensed Noted to have bradycardia and soft blood pressure therefore digoxin discontinued dose of metoprolol decreased to 25 mg recommend to follow heart rate and BP Health Concerns: Continue all home medications as before continue pureed diet with nectar thick liquids and ensure 240 b.i.d. Plan of Treatment: Outpatient follow-up with primary care physician Assessment: As above
--- NOTE | 2024-11-23 11:23 | MHC.SLORD ---
Speech Language Pathology Order Status: Patient lethargic, grimacing with sternal rub but not opening her eyes or following directions. No PO trials given this morning. Patient is on baseline diet puree/nectar thick. Patient must be awake and alert for feedings, do not feed if patient is drowsy or not attending to meal. 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
--- NOTE | 2024-11-23 11:33 | MHC.CM.PN ---
Second IMM given 11/23. Pt is medically cleared for discharge back to [facility] today, she will transport there via BLS/[facility]. Pts niece/HCP Jacquie was notified by this CM and in agreement with discharge plan.
[2024-11-23] MEDS: Metoprolol Succinate ER 25 MG TAB.ER.24H PO (12:21)
== END 2024-11-23 13:30 | disposition skilled nursing facility (03) | DRG 64 ==
LOC: HO.ED 12:43 → HO.EDOVER 13:48 → HO.IMC 11-20 17:18
PROVIDERS: Physician Assistant; Admitting Provider Hospitalist; Emergency Provider Emergency Medicine; PCP Family Medicine; Visit Provider Hospitalist
DX: I63.9 Cerebral infarction, unspecified (principal); G92.8 Other toxic encephalopathy; G81.94 Hemiplegia, unspecified affecting left nondominant side; N39.0 Urinary tract infection, site not specified; I48.19 Other persistent atrial fibrillation; E44.0 Moderate protein-calorie malnutrition; Z68.1 Body mass index [BMI] 19.9 or less, adult; E87.0 Hyperosmolality and hypernatremia; Z16.12 Extended spectrum beta lactamase (ESBL) resistance; E11.9 Type 2 diabetes mellitus without complications; Z66 Do not resuscitate; R31.9 Hematuria, unspecified; I10 Essential (primary) hypertension; R13.10 Dysphagia, unspecified; R29.810 Facial weakness; B96.20 Unspecified Escherichia coli [E. coli] as the cause of diseases classified elsewhere; Z20.822 Contact with and (suspected) exposure to COVID-19; Z87.440 Personal history of urinary (tract) infections; Z99.3 Dependence on wheelchair; Z79.01 Long term (current) use of anticoagulants; Z79.84 Long term (current) use of oral hypoglycemic drugs; Z79.899 Other long term (current) drug therapy
CPT/HCPCS: 0241U; 36415; 70450; 70496; 70498; 71045; 80048; 80061; 80076; 81001; 82947; 83735; 84484; 85025; 85027; 85610; 85730; 87040; 87086; 87088; 87186; 92610; 93005; 97112; 97166; 97530; 99285; C1758; J1335; J2185; Q9967

== ENCOUNTER → 2024-11-19 11:00 | Outpatient (BNV) | payer MEDICARE, SELFPAY | PROVIDERS: Admitting Provider Hospitalist; Emergency Provider Emergency Medicine; PCP Family Medicine; Visit Provider Internal Medicine Cardiovascular Disease | DX: R94.31 Abnormal electrocardiogram [ECG] [EKG] (principal) | CPT/HCPCS: 93010 ==

== ENCOUNTER → 2024-11-19 11:00 | Outpatient (BNV) | payer MEDICARE, SELFPAY | PROVIDERS: Emergency Provider Emergency Medicine; PCP Family Medicine; Visit Provider Radiology Diagnostic Radiology | DX: I25.2 Old myocardial infarction (principal); I63.9 Cerebral infarction, unspecified | CPT/HCPCS: 70450; 70496; 70498; 71045 ==

== ENCOUNTER → 2024-11-19 13:40 | Outpatient (BNV) | payer MEDICARE, SELFPAY | PROVIDERS: Admitting Provider Hospitalist; Emergency Provider Emergency Medicine; PCP Family Medicine; Visit Provider Psychiatry & Neurology Neurology | DX: G81.92 Hemiplegia, unspecified affecting left dominant side (principal) | CPT/HCPCS: 99222 ==

== ENCOUNTER → 2024-11-19 13:40 | Outpatient (BNV) | payer MEDICARE, SELFPAY | PROVIDERS: Admitting Provider Hospitalist; Emergency Provider Emergency Medicine; PCP Family Medicine; Visit Provider Internal Medicine | DX: G81.92 Hemiplegia, unspecified affecting left dominant side (principal); G93.40 Encephalopathy, unspecified; N39.0 Urinary tract infection, site not specified | CPT/HCPCS: 99222 ==

== ENCOUNTER → 2024-11-19 13:40 | Outpatient (BNV) | payer MEDICARE, SELFPAY | PROVIDERS: Admitting Provider Hospitalist; Emergency Provider Emergency Medicine; PCP Family Medicine; Visit Provider Hospitalist | DX: G81.92 Hemiplegia, unspecified affecting left dominant side (principal); N39.0 Urinary tract infection, site not specified; R29.810 Facial weakness; I48.91 Unspecified atrial fibrillation | CPT/HCPCS: 99222; 99232; 99239 ==

== ENCOUNTER 2024-11-26 06:09 | Outpatient (REF) | payer MEDICARE, SELFPAY ==
[2024-11-26 06:00] LABS: MANUAL DIFF FLAG NO
[2024-11-26 07:00] LABS: Basophils Absolute Auto 0.1 X10*3/uL (0.0-0.2); Basophils Percent Auto 0.5 % (0-2); Eosinophils Absolute Auto 1.7 X10*3/uL (0.0-0.4); Eosinophils Percent Auto 12.8 % (0-4); Hematocrit 43.1 % (37.0-47.0); Hemoglobin 13.6 g/dl (12.0-16.0); Imm Gran Abs Auto 0.12 X10*3/uL (0.00-0.03); Imm Gran Pct Auto 0.9 % (0.0-0.4); Lymphocytes Absolute Auto 1.9 X10*3/uL (1.2-4.9); Lymphocytes Percent Auto 13.7 % (20-40); Mean Corpuscular HGB Conc 31.6 g/dl (31.0-35.0); Mean Corpuscular Hemoglobin 27.9 pg (27.0-33.0); Mean Corpuscular Volume 88.3 fL (80.0-98.0); Mean Platelet Volume 11.5 fL (9.4-12.3); Monocytes Percent Auto 7.2 % (2-11); Neutrophils Absolute Auto 8.8 x10*3/uL (2.0-8.3); Neutrophils Percent Auto 64.9 % (45-73); Platelet Count 180 X10*3/uL (160-400); Red Blood Count 4.88 X10*6/uL (4.20-5.50); Red Cell Distribution Width 14.8 % (11.0-16.0); White Blood Count 13.5 X10*3/uL (4.8-10.8)
[2024-11-26 07:15] LABS: Anion Gap 12 (12-20); Blood Urea Nitrogen 18 mg/dL (9-16); Carbon Dioxide 23 mmol/L (22-29); Chloride 108 mmol/L (96-108); Estimated Glomerular Filt Rate > 60; Glucose Random 87 mg/dL (60-115); Potassium 4.1 mmol/L (3.3-5.1); Sodium 139 mmol/L (135-145)
== END 2024-11-26 06:10 | disposition home or self-care (01) ==
LOC: HO.MMNH2L 06:09
PROVIDERS: Visit Provider Student in an Organized Health Care Education/Training Program
DX: J96.01 Acute respiratory failure with hypoxia (principal); J69.0 Pneumonitis due to inhalation of food and vomit
CPT/HCPCS: 36415; 80048; 85025

== ENCOUNTER 2024-12-03 06:17 | Outpatient (REF) | payer MEDICARE, SELFPAY ==
[2024-12-03 06:02] LABS: MANUAL DIFF FLAG NO
--- OUTSIDE RECORDS SUMMARY | 2024-12-03 06:22 | XMS_ITS | Clinical Summary ---
Author Organization Unknown Care Team Providers Care Chemical Technician Name Role Phone BRANDAN CAZARES, SHWETHA Unavailable Unavailable HODA RN, SULEIMAN Unavailable Unavailable MARGI RN, ISRAEL Unavailable Unavailgrady WOOD RN, MANUEL Unavailable Unavailable VERONIKA TRAILER TECHNICIAN, TERRANCE Unavailable Un available JOSE L VALUE ADVISOR, MISTI Unavailable Unavailable MERCEDES RN, ROXANA Unavailable Unavailgrady MCINTYRE RN, HOLLIE Unavailable Unavailable RICH RN, DEXTER Unavailable Unavailable DRISS RN, ANDREI Unavailable Unavailable MAN RN, AJAY Unavailable Unavailable DEXTER TRAILER TECHNICIAN, JARRELL Unavailable Unavailable NORMA VALUE ADVISOR, MAYELA Unavailable Unavailable JACINTA VALUE ADVISOR, CARMENZA Unavailable Unavailable TORI RN, MELINDA Unavailable Unavailable RILEY RN, SHOBHA Unavailable Unavailab kamille HAMILTON RN, KIAN Unavailable Unavailable RADHA RN, ELIZABET Unavailable Unavailable CHITO RN, MAYELA Unavailable Unavailable PEREZ RN, SASCHA Unavailable Unavailable MALA RN, NIDA Unavailable Unavailable CLARK CLARKEN, BLAYNE Unavailable Unavailable ZARA RN, SASCHA Unavailable Unavailable RED RN, ADELA Unavailable Unavailable NITIN RN, ECHO Unavailable Unavailable CURET CH, JAGUAR Unavailable Unavailable PRIJAYCOBIS CH, NORA Unavailable Unavailable JOSE CEDILLO, ISA Unavailable Unavailgrady GALLAGHER SR RISK MANAGEMENT CONSULTANT, JIGAR Unavailable Unavailable Payers Payer Name Policy Type Policy Number Effective Date Expira tion Date MEDICARE.NGS.HSP [id number] Problems Condition Name Condition Details Condition Category Status Onset Date Resolution Date Last Treatment Date Treating Clinician Comments 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-30 00:00: 00 Allergies, Adverse Reactions, Alerts Allergy Name Allergy Type Status Severity Reaction(s) Onset Date Inactive Date Treating Clinician Comments NO KNOWN ALLERGIES Propensity to adverse reactions Active 12-02 21:27: 53 Vital Signs Vital Name Observation Time Observation Value Commen ts Temperature 2024-11-30 10:55:00.000 98.2 [degF] BMI (%) 2024-11-30 10:55:00.000 22 kg/m2 Height 2024-11-30 10:55:00.000 62 [in_us] Pulse 2024-11-30 10:55:00.000 74 /min O2 Saturation (%) 2024-11-30 10:55:00.000 93 % Respirations 2024-11-30 10:55:00.000 18 /min Weight (lbs) 2024-11-30 10:55:00.000 122 [lb_av] Systolic Blood Pressure 2024-11-30 10:55:00.000 116 mm [Hg] Diastolic Blood Pressure 2024-11-30 10:55:00.000 56 mm [Hg] Plan of Treatment Planned Activity Planned Date Details Comments Future Scheduled Test TRADITIONAL CHINESE HERBALIST TO EVALUATE PATIENT, DISEASE PROCESS, SYMPTOMS, AND OTHER CONDITIONS AND DEVELOP A NURSING PLAN OF CARE PART OF THE COMPREHENSIVE PLAN OF CARE DEVELOPMENT PROCESS. [code = TRADITIONAL CHINESE HERBALIST TO EVALUATE PATIENT, DISEASE PROCESS, SYMPTOMS, AND OTHER CONDITIONS AND DEVELOP A NURSING PLAN OF CARE PART OF THE COMPREHENSIVE PLAN OF CARE DEVELOPMENT PROCESS.] Future Scheduled Test RN/SR RISK MANAGEMENT CONSULTANT/CH TO EVALUATE PT/CAREGIVER THOUGHTS REGARDING WHAT IS IMPORTANT/MEANINGFUL TO THEM TO IMPROVE QOL AND ENHANCE PATIENT EXPERIENCE WHILE ON HOSPICE SERVICES. [code = RN/SR RISK MANAGEMENT CONSULTANT/CH TO EVALUATE PT/CAREGIVER THOUGHTS REGARDING WHAT IS IMPORTANT/MEANINGFUL TO THEM TO IMPROVE QOL AND ENHANCE PATIENT EXPERIENCE WHILE ON HOSPICE SERVICES.] Future Scheduled Test HOSPICE NU RSE TO ADMINISTER MEDICATIONS WHEN PATIENT IS IN CRISIS OR IMMINENT STATE. [code = HOSPICE NURSE TO ADMINISTER MEDICATIONS WHEN PATIENT IS IN CRISIS OR IMMINENT STATE.] Future Scheduled Test HOSPICE NU RSE TO MONITOR PATIENT'S PAIN LEVEL AND REPORT INEFFECTIVE PAIN CONTROL TO THE PHYSICIAN. [code = HOSPICE NURSE TO MONITOR PATIENT'S PAIN LEVEL AND REPORT INEFFECTIVE PAIN CONTROL TO THE PHYSICIAN.] Future Scheduled Test HOSPICE NU RSE TO PROVIDE TEACHING RELATED TO PAIN MANAGEMENT TO PATIENT/CAREGIVER. [code = HOSPICE NURSE TO PROVIDE TEACHING RELATED TO PAIN MANAGEMENT TO PATIENT/CAREGIVER.] Future Scheduled Test HOSPICE NU RSE FOR ASSESSMENT OF PATIENT SAFETY, INSTRUCT SAFETY MEASURES APPLICABLE. [code = HOSPICE NURSE FOR ASSESSMENT OF PATIENT SAFETY, INSTRUCT SAFETY MEASURES APPLICABLE.] Future Scheduled Test SKILLED NU RSE TO PERFORM INSERTION OF SINGLE INDWELLING 16F ESTRADA CATHETER, INSTILL 10 CC OF NORMAL SALINE INTO BALLOON AND SECURE TUBING WITH STATLOCK SECURE DEVICE. CHANGE EVERY 4 WEEKS AND PRN FOR DISLODGEMENT. [code = SKILLED NURSE TO PERFORM INSERTION OF SINGLE INDWELLING 16F ESTRADA CATHETER, INSTILL 10 CC OF NORMAL SALINE INTO BALLOON AND SECURE TUBING WITH STATLOCK SECURE DEVICE. CHANGE EVERY 4 WEEKS AND PRN FOR DISLODGEMENT.] Future Scheduled Test HOSPICE NU RSE TO INSTRUCT PATIENT / CAREGIVER IN INDWELLING URINARY CATHETER MANAGEMENT INCLUDING CARE OF ESTRADA CATHETER, SIGN AND SYMPTOMS OF COMPLICATIONS, PERINEAL CARE, TUBE AND BAG PLACEMENT. [code = HOSPICE NURSE TO INSTRUCT PATIENT / CAREGIVER IN INDWELLING URINARY CATHETER MANAGEMENT INCLUDING CARE OF ESTRADA CATHETER, SIGN AND SYMPTOMS OF COMPLICATIONS, PERINEAL CARE, TUBE AND BAG PLACEMENT.] Future Scheduled Test HSP SN TO ASSESS AND INSTRUCT PATIENT/CAREGIVER ON FACTORS THAT INCREASE RISK OF CONSTIPATION AND MEASURES TO PREVENT CONSTIPATION [code = HSP SN TO ASSESS AND INSTRUCT PATIENT/CAREGIVER ON FACTORS THAT INCREASE RISK OF CONSTIPATION AND MEASURES TO PREVENT CONSTIPATION] Future Scheduled Test SKILLED NU RSE TO PROVIDE INSTRUCTIONS REGARDING MEASURES TO CONTROL CONSTIPATION. [code = SKILLED NURSE TO PROVIDE INSTRUCTIONS REGARDING MEASURES TO CONTROL CONSTIPATION.] Future Scheduled Test HOSPICE NU RSE TO INSTRUCT REGARDING APPROPRIATE BOWEL PROTOCOL NEEDED. [code = HOSPICE NURSE TO INSTRUCT REGARDING APPROPRIATE BOWEL PROTOCOL NEEDED.] Future Scheduled Test HOSPICE NU RSE TO INSTRUCT REGARDING CARE RELATED TO BOWEL INCONTINENCE. [code = HOSPICE NURSE TO INSTRUCT REGARDING CARE RELATED TO BOWEL INCONTINENCE.] Future Scheduled Test HOSPICE NU RSE TO INSTRUCT REGARDING COMFORT MEASURES RELATED TO MOUTH/ORAL CARE. [code = HOSPICE NURSE TO INSTRUCT REGARDING COMFORT MEASURES RELATED TO MOUTH/ORAL CARE.] Future Scheduled Test HOSPICE NU RSE TO ASSESS NUTRITION AND HYDRATION STATUS [code = HOSPICE NURSE TO ASSESS NUTRITION AND HYDRATION STATUS] Future Scheduled Test HOSPICE NU RSE TO PROVIDE INSTRUCTIONS RELATED TO NUTRITION/HYDRATION STATUS IN THE TERMINAL PATIENT. [code = HOSPICE NURSE TO PROVIDE INSTRUCTIONS RELATED TO NUTRITION/HYDRATION STATUS IN THE TERMINAL PATIENT.] Future Scheduled Test HOSPICE NU RSE TO OBSERVE AND ASSESS INTEGUMENTARY STATUS TO IDENTIFY CHANGES AND INTERVENE TO MINIMIZE COMPLICATIONS. SKILLED NURSE TO PROVIDE SKILLED TEACHING OF DISEASE PROCESS MANAGEMENT RELATED TO ALTERED SKIN INTEGRITY TO INCLUDE OFFLOADING, FREQUENT POSITION CHANGES, KEEP SKIN CLEAN AND DRY TO PREVENT SKIN BREAKDOWN AND MINIMIZE FRICTION AND SHEARING. [code = HOSPICE NURSE TO OBSERVE AND ASSESS INTEGUMENTARY STATUS TO IDENTIFY CHANGES AND INTERVENE TO MINIMIZE COMPLICATIONS. SKILLED NURSE TO PROVIDE SKILLED TEACHING OF DISEASE PROCESS MANAGEMENT RELATED TO ALTERED SKIN INTEGRITY TO INCLUDE OFFLOADING, FREQUENT POSITION CHANGES, KEEP SKIN CLEAN AND DRY TO PREVENT SKIN BREAKDOWN AND MINIMIZE FRICTION AND SHEARING. ] Future Scheduled Test HOSPICE NU RSE TO ASSESS FOR GRIEVING ISSUES/COMPLICATIONS AND PROVIDE SUPPORTIVE COUNSELING. REFER TO IDG MEMBER, SR RISK MANAGEMENT CONSULTANT, SPIRITUAL COUNSELOR, BEREAVEMENT FOR ADDITIONAL SECRETARY SPECIALIST. [code = HOSPICE NURSE TO ASSESS FOR GRIEVING ISSUES/COMPLICATIONS AND PROVIDE SUPPORTIVE COUNSELING. REFER TO IDG MEMBER, SR RISK MANAGEMENT CONSULTANT, SPIRITUAL COUNSELOR, BEREAVEMENT FOR ADDITIONAL SECRETARY SPECIALIST.] Future Scheduled Test HOSPICE NU RSE FOR OBSERVATION/ASSESSMENT OF SIGNS/SYMPTOMS OF DECLINING STATUS/IMMINENT . [code = HOSPICE NURSE FOR OBSERVATION/ASSESSMENT OF SIGNS/SYMPTOMS OF DECLINING STATUS/IMMINENT .] Future Scheduled Test INSTRUCT P ATIENT/CAREGIVER REGARDING SIGNS/SYMPTOMS OF DYING AND PLAN FOR MANAGING SYMPTOMS. 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 [code = SKILLED NURSE TO PROVIDE SKILLED TEACHING AND MANAGEMENT OF POST CEREBRAL VASCULAR ACCIDENT.] Future Scheduled Test HOSPICE NU RSE WILL REVIEW, COORDINATE, COLLABORATE WITH FACILITY STAFF AND TRAIN FACILITY STAFF REGARDING THE HOSPICE PATIENTS PLAN OF CARE EVERY VISIT. FACILITY STAFF TO PROVIDE REPORTS ON PATIENTS CONDITION AND PROGRESS, TO HOSPICE AGENCY EVERY VISIT; TO PARTICIPATE IN CARE MANAGEMENT CONFERENCE WITH HOSPICE STAFF EVERY VISIT [code = HOSPICE NURSE WILL REVIEW, COORDINATE, COLLABORATE WITH FACILITY STAFF AND TRAIN FACILITY STAFF REGARDING THE HOSPICE PATIENTS PLAN OF CARE EVERY VISIT. FACILITY STAFF TO PROVIDE REPORTS ON PATIENTS CONDITION AND PROGRESS, TO HOSPICE AGENCY EVERY VISIT; TO PARTICIPATE IN CARE MANAGEMENT CONFERENCE WITH HOSPICE STAFF EVERY VISIT ] Future Scheduled Test MEDICAL SO CIAL WORKER TO EVALUATE SOCIAL, EMOTIONAL AND FINANCIAL FACTORS RELATED TO THE PATIENT'S ILLNESS, NEED FOR ADDITIONAL CARE/RESOURCES, ADJUSTMENT TO CARE AND DEVELOP A PLAN OF CARE. [code = NEUROPSYCHOLOGY DIRECTOR TO EVALUATE SOCIAL, EMOTIONAL AND FINANCIAL FACTORS RELATED TO THE PATIENT'S ILLNESS, NEED FOR ADDITIONAL CARE/RESOURCES, ADJUSTMENT TO CARE AND DEVELOP A PLAN OF CARE.] Future Scheduled Test BAND BOOKER T O CONDUCT SPIRITUAL ASSESSMENT OF PATIENT/FAMILY/CAREGIVER AND DEVELOP A PLAN OF CARE. [code = BAND BOOKER TO CONDUCT SPIRITUAL ASSESSMENT OF PATIENT/FAMILY/CAREGIVER AND DEVELOP A PLAN OF CARE.] Future Scheduled Test RN MAY PER FORM PRONOUNCEMENT OF PER STATE REGULATION. [code = RN MAY PERFORM PRONOUNCEMENT OF PER STATE REGULATION.] Goal Provider Goal - A NURSING PLAN OF CARE WILL BE ESTABLISHED THAT MEETS THE PATIENT'S NEEDS Goal Provider Goal - PT/FAMILY WILL EXPERIENCE COMFORT KNOWING THAT WHAT MATTERS TO THE PATIENT/FAMILY HAS BEEN IDENTIFIED AND HONORED Goal Provider Goal - PATIENT EXHIBITS SIGNS OF SYMPTOM REDUCTION OR RELIEF. Goal Provider Goal - PAIN WILL BE MANAGED AT A LEVEL ACCEPTABLE TO THE PATIENT Goal Provider Goal - PATIENT/CAREGIVER WILL VERBALIZE/DEMONSTRATE APPROPRIATE PAIN MANAGEMENT. Goal Provider Goal - PATIENT WILL HAVE SAFETY NEEDS MET. Goal Provider Goal - INDWELLING URINARY CATHETER WILL REMAIN PATENT. Goal Provider Goal - PATIENT / CAREGIVER WILL VERBALIZE/DEMONSTRATE REQUIRED KNOWLEDGE TO MANAGE URINARY CATHETER CARE AND WILL BE ABLE TO VERBALIZE SIGNS AND SYMPTOMS OF COMPLICATIONS. Goal Provider Goal - PATIENT/CAREGIVER VERBALIZE UNDERSTANDING OF RISK FACTORS THAT INCREASE RISK OF CONSTIPATION AND MEASURES TO PREVENT CONSTIPATION Goal Provider Goal - PATIENT / CAREGIVER WILL VERBALIZE BOWEL PROGRAM TO PREVENT CONSTIPATION COMPLICATIONS Goal Provider Goal - PATIENT/CAREGIVER WILL BE ABLE TO VERBALIZE/DEMONSTRATE BOWEL PROGRAM TO PREVENT/RELIEVE CONSTIPATION. Goal Provider Goal - PATIENT/CAREGIVER WILL VERBALIZE/DEMONSTRATE UNDERSTANDING OF CARE REQUIRED SECONDARY TO BOWEL INCONTINENCE. Goal Provider Goal - PATIENT/CAREGIVER VERBALIZES/DEMONSTRATES PROPER MOUTH CARE. Goal Provider Goal - PATIENT/CAREGIVER EXPRESSES INCREASED SENSE OF COMFORT REGARDING NUTRITIONAL STATUS AND DIETARY PLAN. Goal Provider Goal - PATIENT/CAREGIVER VERBALIZES UNDERSTANDING OF ANOREXIA/DEHYDRATION IN THE TERMINAL PATIENT AND CAREGIVER DEMONSTRATES OFFERING, COMFORT FOOD/FLUIDS TO PATIENT. Goal Provider Goal - CHANGES IN SKIN INTEGRITY STATUS WILL BE IDENTIFIED AND REPORTED TO THE PHYSICIAN FOR PROMPT INTERVENTION. PATIENT / CAREGIVER WILL VERBALIZE/DEMONSTRATE ADEQUATE KNOWLEDGE OF INTEGUMENTARY STATUS AND APPROPRIATE MEASURES TO PROMOTE SKIN INTEGRITY AND PREVENT INJURY Goal Provider Goal - PATIENT/CAREGIVER WILL VERBALIZE UNDERSTANDING OF THE STAGES OF GRIEF AND WILL HAVE GRIEF ISSUES IDENTIFIED AND SUPPORTED. Goal Provider Goal - PATIENT WILL TRANSITION PEACEFULLY THROUGH THE DYING PROCESS Goal Provider Goal - CAREGIVER VERBALIZES UNDERSTANDING OF S/S IMMINENT , PLAN FOR SYMPTOM MANAGEMENT AND WHAT TO DO AT TIME OF . Goal Provider Goal - PATIENT/CAREGIVER VERBALIZES/DEMONSTRATES UNDERSTANDING OF PROPER SAFETY MEASURES RELATED TO ASPIRATION PRECAUTIONS. Goal Provider Goal - PATIENT / CAREGIVER WILL VERBALIZE/DEMONSTRATE CARE AND SELF-MANAGEMENT OF CVA TO MINIMIZE COMPLICATIONS. Goal Provider Goal - FACILITY STAFF WILL BE TRAINED IN THE HOSPICE PHILOSOPHY OF CARE AND PROVIDING PATIENT CARE ACCORDING TO THE HOSPICE PLAN OF CARE, KNOWLEDGEABLE OF WHEN TO NOTIFY THE [facility] AGENCY. FACILITY STAFF WILL PARTICIPATE IN CONFERENCES REGARDING HOSPICE PATIENT.CARE COORDINATION BETWEEN FACILITY STAFF AND HOSPICE AGENCY WILL BE ACHIEVED AND MAINTAINED THROUGHOUT PATIENTS HOSPICE SERVICE. Goal Provider Goal - A NEUROPSYCHOLOGY DIRECTOR PLAN OF CARE WILL BE ESTABLISHED. Goal Provider Goal - A BAND BOOKER PLAN OF CARE WILL BE ESTABLISHED. Goal Provider Goal - RN TO PERFORM PRONOUCEMENT OF PER STATE REGULATION. Encounters Start Date/Time End Date/Time Encounter Type Admission Type Attending Clinicians Care Facility Care Department Encounter ID Discharge Date Discharge Status Discharge Condition Discharge Reason Percent Goals Met 2024-11-30 00:00:00 2025-02-27 00:00:00 Outpatient NEW ADMISSION SULEIMAN DRUMMOND [facility] [id number]
[2024-12-03 07:09] LABS: Anion Gap 15 (12-20); Blood Urea Nitrogen 21 mg/dL (9-16); Calcium 9.4 mg/dL (8.4-10.2); Carbon Dioxide 21 mmol/L (22-29); Chloride 107 mmol/L (96-108); Estimated Glomerular Filt Rate > 60; Glucose Random 81 mg/dL (60-115); Potassium 4.3 mmol/L (3.3-5.1); Sodium 139 mmol/L (135-145)
[2024-12-03 07:13] LABS: Basophils Absolute Auto 0.1 X10*3/uL (0.0-0.2); Basophils Percent Auto 1.1 % (0-2); Eosinophils Absolute Auto 0.4 X10*3/uL (0.0-0.4); Eosinophils Percent Auto 6.9 % (0-4); Hematocrit 41.1 % (37.0-47.0); Hemoglobin 13.4 g/dl (12.0-16.0); Imm Gran Abs Auto 0.02 X10*3/uL (0.00-0.03); Imm Gran Pct Auto 0.3 % (0.0-0.4); Lymphocytes Absolute Auto 1.9 X10*3/uL (1.2-4.9); Lymphocytes Percent Auto 30.4 % (20-40); Mean Corpuscular HGB Conc 32.6 g/dl (31.0-35.0); Mean Corpuscular Hemoglobin 27.9 pg (27.0-33.0); Mean Corpuscular Volume 85.4 fL (80.0-98.0); Mean Platelet Volume 10.7 fL (9.4-12.3); Monocytes Absolute Auto 0.5 X10*3/uL (0.1-1.2); Monocytes Percent Auto 8.3 % (2-11); Neutrophils Absolute Auto 3.3 x10*3/uL (2.0-8.3); Platelet Count 184 X10*3/uL (160-400); Red Blood Count 4.81 X10*6/uL (4.20-5.50); Red Cell Distribution Width 15.1 % (11.0-16.0); White Blood Count 6.3 X10*3/uL (4.8-10.8)
== END 2024-12-03 06:18 | disposition home or self-care (01) ==
LOC: HO.MMNH2L 06:17
PROVIDERS: Visit Provider Student in an Organized Health Care Education/Training Program
DX: J96.01 Acute respiratory failure with hypoxia (principal); J69.0 Pneumonitis due to inhalation of food and vomit
CPT/HCPCS: 36415; 80048; 85025

== ENCOUNTER 2024-12-10 06:22 | Outpatient (REF) | payer MEDICARE, SELFPAY ==
[2024-12-10 06:04] LABS: MANUAL DIFF FLAG NO
[2024-12-10 06:34] LABS: Basophils Absolute Auto 0.1 X10*3/uL (0.0-0.2); Eosinophils Absolute Auto 0.7 X10*3/uL (0.0-0.4); Eosinophils Percent Auto 9.6 % (0-4); Hematocrit 40.2 % (37.0-47.0); Hemoglobin 13.1 g/dl (12.0-16.0); Imm Gran Abs Auto 0.03 X10*3/uL (0.00-0.03); Imm Gran Pct Auto 0.4 % (0.0-0.4); Lymphocytes Absolute Auto 1.9 X10*3/uL (1.2-4.9); Lymphocytes Percent Auto 25.9 % (20-40); Mean Corpuscular HGB Conc 32.6 g/dl (31.0-35.0); Mean Corpuscular Hemoglobin 27.6 pg (27.0-33.0); Mean Corpuscular Volume 84.6 fL (80.0-98.0); Mean Platelet Volume 10.6 fL (9.4-12.3); Monocytes Absolute Auto 0.6 X10*3/uL (0.1-1.2); Monocytes Percent Auto 8.8 % (2-11); Neutrophils Absolute Auto 3.9 x10*3/uL (2.0-8.3); Neutrophils Percent Auto 54.3 % (45-73); Platelet Count 174 X10*3/uL (160-400); Red Blood Count 4.75 X10*6/uL (4.20-5.50); Red Cell Distribution Width 15.7 % (11.0-16.0); White Blood Count 7.2 X10*3/uL (4.8-10.8)
[2024-12-10 06:59] LABS: Anion Gap 13 (12-20); Blood Urea Nitrogen 10 mg/dL (9-16); Calcium 9.2 mg/dL (8.4-10.2); Carbon Dioxide 22 mmol/L (22-29); Chloride 104 mmol/L (96-108); Estimated Glomerular Filt Rate > 60; Glucose Random 93 mg/dL (60-115); Potassium 3.9 mmol/L (3.3-5.1); Sodium 135 mmol/L (135-145)
== END 2024-12-10 06:23 | disposition home or self-care (01) ==
LOC: HO.MMNH2L 06:22
PROVIDERS: Visit Provider Student in an Organized Health Care Education/Training Program
DX: J96.01 Acute respiratory failure with hypoxia (principal); J69.0 Pneumonitis due to inhalation of food and vomit
CPT/HCPCS: 36415; 80048; 85025

== ENCOUNTER 2024-12-17 05:57 | Outpatient (REF) | payer MEDICARE, SELFPAY ==
[2024-12-17 05:40] LABS: MANUAL DIFF FLAG NO
--- OUTSIDE RECORDS SUMMARY | 2024-12-17 06:01 | XMS_ITS | Clinical Summary ---
Author Organization Unknown Care Team Providers Care Technical Testing Engineer Name Role Phone BRANDAN CAZARES, SHWETHA Unavailable Unavailable HODA RN, SULEIMAN Unavailable Unavailable MARGI RN, ISRAEL Unavailable Unavailgrady WOOD RN, MANUEL Unavailable Unavailable VERONIKA SUPERVISOR FRAME ASSEMBLY, TERRANCE Unavailable Un available JOSE L DATA NETWORK ARCHITECT, MISTI Unavailable Unavailable MERCEDES RN, ROXANA Unavailable Unavailgrady MCINTYRE RN, HOLLIE Unavailable Unavailable RICH RN, DEXTER Unavailable Unavailable DRISS RN, ANDREI Unavailable Unavailable MAN RN, AJAY Unavailable Unavailable DEXTER SUPERVISOR FRAME ASSEMBLY, JARRELL Unavailable Unavailable NORMA DATA NETWORK ARCHITECT, MAYELA Unavailable Unavailable JACINTA DATA NETWORK ARCHITECT, CARMENZA Unavailable Unavailable TORI RN, MELINDA Unavailable Unavailable RILEY RN, SHOBHA Unavailable Unavailab kamille HAMILTON RN, KIAN Unavailable Unavailable RADHA RN, ELIZABET Unavailable Unavailable CHITO RN, MAYELA Unavailable Unavailable PEREZ RN, SASCHA Unavailable Unavailable MALA RN, NIDA Unavailable Unavailable CLARK FERNÁNDEZ, BLAYNE Unavailable Unavailable ZARA RN, SASCHA Unavailable Unavailable RED RN, ADELA Unavailable Unavailable NITIN RN, ECHO Unavailable Unavailable CURET CH, JAGUAR Unavailable Unavailable JAVIER ESCOBEDO, NORA Unavailable Unavailable JOSE CEDILLO, ISA Unavailable Unavailgrady GALLAGHER PRESS TENDER SMOKE SIGNAL, JIGAR Unavailable Unavailable Payers Payer Name Policy Type Policy Number Effective Date Expira tion Date MEDICARE.NGS.HSP [id number] Problems Condition Name Condition Details Condition Category Status Onset Date Resolution Date Last Treatment Date Treating Clinician Comments DYSPHAGIA FOLLOWING CEREBRAL INFARCTION Active 1-24 00:00: 00 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 11-30 00:00: 00 UNSPECIFIED PROTEIN-SARTHAK TYSON MALNUTRITION Active 11-30 00:00: 00 PERMANENT ATRIAL FIBRILLATION Active 11-30 00:00: 00 ESSENTIAL (PRIMARY) HYPERTENSION Active 11-30 00:00: 00 NONRHEUMATIC MITRAL (VALVE) INSUFFICIENC Y Active 11-30 00:00: 00 NONRHEUMATIC TRICUSPID (VALVE) INSUFFICIENC Y Active 11-30 00:00: 00 TYPE 2 DIABETES MELLITUS WITH DIABETIC NEUROPATHY, UNSP Active 11-30 00:00: 00 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 11-30 00:00: 00 ACIDOSIS, UNSPECIFIED Active 11-30 00:00: 00 RETENTION OF URINE, UNSPECIFIED Active 11-30 00:00: 00 URINARY TRACT INFECTION, SITE NOT SPECIFIED Active 11-30 00:00: 00 HYPERLIPIDEM IA, UNSPECIFIED Active 11-30 00:00: 00 FATTY (CHANGE OF) LIVER, NOT ELSEWHERE CLASSIFIED Active 11-30 00:00: 00 LOCALIZED ENLARGED LYMPH NODES Active 11-30 00:00: 00 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 Ordering Clinician Indication Dosage Frequency Signature (SIG) Comments Components digoxin 125 mcg (0.125 mg) tablet 11-18 00:00: 00 11-30 00:00 :00 No [id number] Per instruc tions Per instructio ns (route: oral) Med Classific ation: Cardiovas cular Therapy Agents Eliquis 2.5 mg tablet 11-18 00:00: 00 11-30 00:00 :00 No [id number] Per instruc tions Per instructio ns (route: oral) Med Classific ation: Hematolog ical Agents lisinopril 5 mg tablet 11-18 00:00: 00 11-30 00:00 :00 No [id number] Per instruc tions Per instructio ns (route: oral) Med Classific ation: Cardiovas cular Therapy Agents metformin 500 mg tablet 11-18 00:00: 00 11-30 00:00 :00 No [id number] Per instruc tions Per instructio ns (route: oral) Med Classific ation: Endocrine metoprolol succinate ER 50 mg tablet,exte nded release 24 hr 11-18 00:00: 00 11-30 00:00 :00 No [id number] Per instruc tions Per instructio ns (route: oral) Med Classific ation: Cardiovas cular Therapy Agents nifedipine ER 30 mg tablet,exte nded release 24 hr 11-18 00:00: 00 11-30 00:00 :00 No [id number] Per instruc tions Per instructio ns (route: oral) Med Classific ation: Cardiovas cular Therapy Agents pravastatin 10 mg tablet 11-18 00:00: 00 11-30 00:00 :00 No [id number] Per instruc tions Per instructio ns (route: oral) Med Classific ation: Cardiovas cular Therapy Agents docusate sodium 50 mg/5 mL oral liquid 11-30 00:00: 00 Yes [id number] CONSTIPATIO N 10 mL EVERY AM 10 mL EVERY AM (route: oral) Med Classific ation: Gastroint estinal Therapy Agents Levsin 0.125 mg tablet 11-30 00:00: 00 Yes [id number] TRACHEAL SECRETIONS 1 tablet EVERY 4 HOURS 1 tablet EVERY 4 HOURS (route: oral) Alternate Route: UNDER THE TONGUE. Med Classific ation: Gastroint estinal Therapy Agents lorazepam 2 mg/mL oral concentrate 11-30 00:00: 00 Yes [id number] ANXIETY RESTLESSNES S 0.5 mg EVERY 2 HOURS 0.5 mg EVERY 2 HOURS (route: oral) Alternate Route: UNDER THE TONGUE. Med Classific ation: Central Nervous System Agents morphine concentrate 100 mg/5 mL (20 mg/mL) oral solution 11-30 00:00: 00 Yes [id number] PAIN, DYSPNEA 5 mg HOURLY 5 mg HOURLY (route: oral) Alternate Route: UNDER THE TONGUE. Med Classific ation: Analgesic , Anti-infl ammatory or Antipyret ic Fleet Enema 19 gram-7 gram/118 mL 11-30 00:00: 00 Yes [id number] CONSTIPATIO N 118 mL DAILY 118 mL DAILY (route: rectal) Med Classific ation: Gastroint estinal Therapy Agents bisacodyl 10 mg rectal suppository 11-30 00:00: 00 Yes [id number] CONSTIPATIO N 1 supposi tory, rectal DAILY 1 suppositor y, rectal DAILY (route: rectal) Med Classific ation: Gastroint estinal Therapy Agents Milk of Magnesia 400 mg/5 mL oral suspension 11-30 00:00: 00 Yes [id number] CONSTIPATIO N 30 mL DAILY 30 mL DAILY (route: oral) Med Classific ation: Gastroint estinal Therapy Agents Vital Signs Vital Name Observation Time Observation Value Commen ts Temperature 2024-12-11 14:00:00.000 97.4 [degF] Temperature 2024-12-07 12:59:00.000 98.4 [degF] Temperature 2024-12-03 22:12:00.000 97.7 [degF] Temperature 2024-11-30 10:55:00.000 98.2 [degF] BMI (%) 2024-11-30 10:55:00.000 22 kg/m2 Height 2024-11-30 10:55:00.000 62 [in_us] Pulse 2024-12-11 14:00:00.000 73 /min Pulse 2024-12-07 12:59:00.000 90 /min Pulse 2024-12-03 22:12:00.000 90 /min Pulse 2024-11-30 10:55:00.000 74 /min O2 Saturation (%) 2024-11-30 10:55:00.000 93 % Respirations 2024-12-11 14:00:00.000 18 /min Respirations 2024-12-07 12:59:00.000 18 /min Respirations 2024-12-03 22:12:00.000 18 /min Respirations 2024-11-30 10:55:00.000 18 /min Weight (lbs) 2024-11-30 10:55:00.000 122 [lb_av] Systolic Blood Pressure 2024-12-11 14:00:00.000 110 mm [Hg] Systolic Blood Pressure 2024-12-07 12:59:00.000 126 mm [Hg] Systolic Blood Pressure 2024-12-03 22:12:00.000 102 mm [Hg] Systolic Blood Pressure 2024-11-30 10:55:00.000 116 mm [Hg] Diastolic Blood Pressure 2024-12-11 14:00:00.000 70 mm [Hg] Diastolic Blood Pressure 2024-12-07 12:59:00.000 80 mm [Hg] Diastolic Blood Pressure 2024-12-03 22:12:00.000 73 mm [Hg] Diastolic Blood Pressure 2024-11-30 10:55:00.000 56 mm [Hg] Plan of Treatment Planned Activity Planned Date Details Comments Future Scheduled Test DRYWALL CONTRACTOR TO EVALUATE PATIENT, DISEASE PROCESS, SYMPTOMS, AND OTHER CONDITIONS AND DEVELOP A NURSING PLAN OF CARE PART OF THE COMPREHENSIVE PLAN OF CARE DEVELOPMENT PROCESS. [code = DRYWALL CONTRACTOR TO EVALUATE PATIENT, DISEASE PROCESS, SYMPTOMS, AND OTHER CONDITIONS AND DEVELOP A NURSING PLAN OF CARE PART OF THE COMPREHENSIVE PLAN OF CARE DEVELOPMENT PROCESS.] Future Scheduled Test RN/PRESS TENDER SMOKE SIGNAL/CH TO EVALUATE PT/CAREGIVER THOUGHTS REGARDING WHAT IS IMPORTANT/MEANINGFUL TO THEM TO IMPROVE QOL AND ENHANCE PATIENT EXPERIENCE WHILE ON HOSPICE SERVICES. [code = RN/PRESS TENDER SMOKE SIGNAL/CH TO EVALUATE PT/CAREGIVER THOUGHTS REGARDING WHAT IS [...] PROVIDE SUPPORTIVE COUNSELING. REFER TO IDG MEMBER, PRESS TENDER SMOKE SIGNAL, SPIRITUAL COUNSELOR, BEREAVEMENT FOR ADDITIONAL FIELD NURSE. [code = HOSPICE NURSE TO ASSESS FOR GRIEVING ISSUES/COMPLICATIONS AND PROVIDE SUPPORTIVE COUNSELING. REFER TO IDG MEMBER, PRESS TENDER SMOKE SIGNAL, SPIRITUAL COUNSELOR, BEREAVEMENT FOR ADDITIONAL FIELD NURSE.] Future Scheduled Test HOSPICE NU RSE FOR [...] DEVELOP A PLAN OF CARE. [code = SOAP CHIPPER TO EVALUATE SOCIAL, EMOTIONAL AND FINANCIAL FACTORS RELATED TO THE PATIENT'S ILLNESS, NEED FOR ADDITIONAL CARE/RESOURCES, ADJUSTMENT TO CARE AND DEVELOP A PLAN OF CARE.] Future Scheduled Test WINDOW CASER T O CONDUCT SPIRITUAL ASSESSMENT OF PATIENT/FAMILY/CAREGIVER AND DEVELOP A PLAN OF CARE. [code = WINDOW CASER TO CONDUCT SPIRITUAL ASSESSMENT OF PATIENT/FAMILY/CAREGIVER AND DEVELOP A PLAN OF CARE.] Future Scheduled Test HOSPICE NU RSE TO ASSESS EFFECTIVENESS OF CARDIOPULMONARY SYMPTOM RELIEF MEASURES INCLUDING OXYGEN TREATMENT AND COMFORT MODALITIES. [code = HOSPICE NURSE TO ASSESS EFFECTIVENESS OF CARDIOPULMONARY SYMPTOM RELIEF MEASURES INCLUDING OXYGEN TREATMENT AND COMFORT MODALITIES.] Future Scheduled Test HOSPICE NU RSE TO OBSERVE AND ASSESS NEUROLOGICAL STATUS TO IDENTIFY CHANGES AND INTERVENE TO MINIMIZE COMPLICATIONS. HOSPICE NURSE TO PROVIDE TEACHING OF CVA WITH DYSPHAGIA DISEASE PROCESS. [code = HOSPICE NURSE TO OBSERVE AND ASSESS NEUROLOGICAL STATUS TO IDENTIFY CHANGES AND INTERVENE TO MINIMIZE COMPLICATIONS. HOSPICE NURSE TO PROVIDE TEACHING OF CVA WITH DYSPHAGIA DISEASE PROCESS.] Future Scheduled Test HOSPICE NU RSE TO OBTAIN O2 SATS VIA PULSE OXIMETER PRN FOR DYSPNEA AND RECERTIFICATION. [code = HOSPICE NURSE TO OBTAIN O2 SATS VIA PULSE OXIMETER PRN FOR DYSPNEA AND RECERTIFICATION.] Future Scheduled Test HOSPICE NU RSE TO ASSESS FOR SIGNS/SYMPTOMS OF ANXIETY/TERMINAL AGITATION AND PROVIDE INSTRUCTION REGARDING ORIGIN AND MANAGEMENT. [code = HOSPICE NURSE TO ASSESS FOR SIGNS/SYMPTOMS OF ANXIETY/TERMINAL AGITATION AND PROVIDE INSTRUCTION REGARDING ORIGIN AND MANAGEMENT.] Future Scheduled Test HOSPICE NU RSE TO INSTRUCT IN DIABETES MANAGEMENT IT RELATES TO THE TERMINAL DISEASE PROCESS. [code = HOSPICE NURSE TO INSTRUCT IN DIABETES MANAGEMENT IT RELATES TO THE TERMINAL DISEASE PROCESS.] Future Scheduled Test RN MAY PER FORM [...] HOSPICE SERVICE. Goal Provider Goal - A SOAP CHIPPER PLAN OF CARE WILL BE ESTABLISHED. Goal Provider Goal - A WINDOW CASER PLAN OF CARE WILL BE ESTABLISHED. Goal Provider Goal - PATIENT WILL VERBALIZE/DEMONSTRATE REDUCTION OR RELIEF OF CARDIOPULMONARY SYMPTOMS. Goal Provider Goal - CHANGES IN NEUROLOGICAL STATUS WILL BE IDENTIFIED AND REPORTED TO THE PHYSICIAN FOR PROMPT INTERVENTION. CAREGIVER WILL VERBALIZE/DEMONSTRATE APPROPRIATE MEASURES TO PROMOTE SAFETY AND PREVENT INJURY. Goal Provider Goal - O2 LEVELS WILL BE MONITORED APPROPRIATE. Goal Provider Goal - PATIENT'S ANXIETY/AGITATION IS MINIMIZED/CONTROLLED AND CAREGIVER VERBALIZES UNDERSTANDING OF ITS EFFECTS/ORIGIN/TREATMENT. Goal Provider Goal - CAREGIVER VERBALIZES/DEMONSTRATES UNDERSTANDING OF MANAGEMENT OF DIABETES TO PREVENT A DIABETIC EVENT. Goal Provider Goal - RN TO PERFORM PRONOUCEMENT OF PER STATE REGULATION. Encounters Start Date/Time End Date/Time Encounter Type Admission Type Attending [facility] Care Department Encounter ID Discharge Date Discharge Status Discharge Condition Discharge Reason Percent Goals Met 2024-11-30 00:00:00 2025-02-27 00:00:00 Outpatient NEW ADMISSION SULEIMAN DRUMMON[facility] [place] [id number] 50.43
--- OUTSIDE RECORDS SUMMARY | 2024-12-17 06:01 | XMS_ITS | Clinical Summary ---
Author Organization Unknown Care Team Providers Care Commercial Loan Analyst Name Role Phone BRANDAN CAZARES, SHWETHA Unavailable Unavailable HODA RN, SULEIMAN Unavailable Unavailable MARGI RN, ISRAEL Unavailable Unavailgrady WOOD RN, MANUEL Unavailable Unavailable VERONIKA ALEMITE OPERATOR, TERRANCE Unavailable Un available JOSE L SENIOR ADMINISTRATIVE ASSOCIATE, MISTI Unavailable Unavailable MERCEDES RN, ROXANA Unavailable Unavailgrady MCINTYRE RN, HOLLIE Unavailable Unavailable RICH RN, DEXTER Unavailable Unavailable DRISS RN, ANDREI Unavailable Unavailable MAN RN, AJAY Unavailable Unavailable DEXTER ALEMITE OPERATOR, JARRELL Unavailable Unavailable NORMA SENIOR ADMINISTRATIVE ASSOCIATE, MAYELA Unavailable Unavailable JACINTA SENIOR ADMINISTRATIVE ASSOCIATE, CARMENZA Unavailable Unavailable TORI RN, MELINDA Unavailable [...] Unavailable JOSE CEDILLO, ISA Unavailable Unavailgrady GALLAGHER AIR AND HYDRONIC BALANCING TECHNICIAN, JIGAR Unavailable Unavailable Payers Payer Name Policy Type Policy Number Effective Date Expira tion Date MEDICARE.NGS.HSP [id number] Problems Condition Name Condition Details Condition Category [...] 11-18 00:00: 00 11-30 00:00 :00 No [id number] Per instruc tions Per instructio ns (route: oral) Med Classific ation: Cardiovas cular Therapy Agents Eliquis 2.5 mg tablet 11-18 00:00: 00 11-30 00:00 :00 No [id number] Per instruc tions Per instructio ns (route: oral) Med Classific ation: Hematolog ical Agents lisinopril 5 mg tablet 11-18 00:00: 00 11-30 00:00 :00 No [id number] Per instruc tions Per instructio ns (route: oral) Med Classific ation: Cardiovas cular Therapy Agents metformin 500 mg tablet 11-18 00:00: 00 11-30 00:00 :00 No [id number] Per instruc tions Per instructio ns (route: oral) Med Classific ation: Endocrine metoprolol succinate ER 50 mg tablet,exte nded release 24 hr 11-18 00:00: 00 11-30 00:00 :00 No [id number] Per instruc tions Per instructio ns (route: oral) Med Classific ation: Cardiovas cular Therapy Agents nifedipine ER 30 mg tablet,exte nded release 24 hr 11-18 00:00: 00 11-30 00:00 :00 No [id number] Per instruc tions Per instructio ns (route: oral) Med Classific ation: Cardiovas cular Therapy Agents pravastatin 10 mg tablet 11-18 00:00: 00 11-30 00:00 :00 No [id number] Per instruc tions Per instructio ns (route: oral) Med Classific ation: Cardiovas cular Therapy Agents docusate sodium 50 mg/5 mL oral liquid 11-30 00:00: 00 Yes [id number] CONSTIPATIO N 10 mL EVERY AM 10 mL EVERY AM (route: oral) Med Classific ation: Gastroint estinal Therapy Agents Levsin 0.125 mg tablet 11-30 00:00: 00 Yes [id number] TRACHEAL SECRETIONS 1 tablet EVERY 4 HOURS 1 tablet EVERY 4 HOURS (route: oral) Alternate Route: UNDER THE TONGUE. Med Classific ation: Gastroint estinal Therapy Agents lorazepam 2 mg/mL oral concentrate 11-30 00:00: 00 Yes [id number] ANXIETY RESTLESSNES S 0.5 mg EVERY 2 HOURS 0.5 mg EVERY 2 HOURS (route: oral) Alternate Route: UNDER THE TONGUE. Med Classific ation: Central Nervous System Agents morphine concentrate 100 mg/5 mL (20 mg/mL) oral solution 11-30 00:00: 00 Yes [id number] PAIN, DYSPNEA 5 mg HOURLY 5 mg HOURLY (route: oral) Alternate Route: UNDER THE TONGUE. Med Classific ation: Analgesic , Anti-infl ammatory or Antipyret ic Fleet Enema 19 gram-7 gram/118 mL 11-30 00:00: 00 Yes [id number] CONSTIPATIO N 118 mL DAILY 118 mL DAILY (route: rectal) Med Classific ation: Gastroint estinal Therapy Agents bisacodyl 10 mg rectal suppository 11-30 00:00: 00 Yes [id number] CONSTIPATIO N 1 supposi tory, rectal DAILY 1 suppositor y, rectal DAILY (route: rectal) Med Classific ation: Gastroint estinal Therapy Agents Milk of Magnesia 400 mg/5 mL oral suspension 11-30 00:00: 00 Yes [id number] CONSTIPATIO N 30 mL DAILY 30 mL [...] Planned Date Details Comments Future Scheduled Test ANESTHESIOLOGY RESIDENT TO EVALUATE PATIENT, DISEASE PROCESS, SYMPTOMS, AND OTHER CONDITIONS AND DEVELOP A NURSING PLAN OF CARE PART OF THE COMPREHENSIVE PLAN OF CARE DEVELOPMENT PROCESS. [code = ANESTHESIOLOGY RESIDENT TO EVALUATE PATIENT, DISEASE PROCESS, SYMPTOMS, AND OTHER CONDITIONS AND DEVELOP A NURSING PLAN OF CARE PART OF THE COMPREHENSIVE PLAN OF CARE DEVELOPMENT PROCESS.] Future Scheduled Test RN/AIR AND HYDRONIC BALANCING TECHNICIAN/CH TO EVALUATE PT/CAREGIVER THOUGHTS REGARDING WHAT IS IMPORTANT/MEANINGFUL TO THEM TO IMPROVE QOL AND ENHANCE PATIENT EXPERIENCE WHILE ON HOSPICE SERVICES. [code = RN/AIR AND HYDRONIC BALANCING TECHNICIAN/CH TO EVALUATE PT/CAREGIVER THOUGHTS REGARDING WHAT IS [...] PROVIDE SUPPORTIVE COUNSELING. REFER TO IDG MEMBER, AIR AND HYDRONIC BALANCING TECHNICIAN, SPIRITUAL COUNSELOR, BEREAVEMENT FOR ADDITIONAL CLAIM AGENT. [code = HOSPICE NURSE TO ASSESS FOR GRIEVING ISSUES/COMPLICATIONS AND PROVIDE SUPPORTIVE COUNSELING. REFER TO IDG MEMBER, AIR AND HYDRONIC BALANCING TECHNICIAN, SPIRITUAL COUNSELOR, BEREAVEMENT FOR ADDITIONAL CLAIM AGENT.] Future Scheduled Test HOSPICE NU RSE FOR [...] DEVELOP A PLAN OF CARE. [code = SAS PROGRAMMER REMOTE TO EVALUATE SOCIAL, EMOTIONAL AND FINANCIAL FACTORS RELATED TO THE PATIENT'S ILLNESS, NEED FOR ADDITIONAL CARE/RESOURCES, ADJUSTMENT TO CARE AND DEVELOP A PLAN OF CARE.] Future Scheduled Test CHANGE MANAGEMENT COORDINATOR T O CONDUCT SPIRITUAL ASSESSMENT OF PATIENT/FAMILY/CAREGIVER AND DEVELOP A PLAN OF CARE. [code = CHANGE MANAGEMENT COORDINATOR TO CONDUCT SPIRITUAL ASSESSMENT OF PATIENT/FAMILY/CAREGIVER AND [...] HOSPICE SERVICE. Goal Provider Goal - A SAS PROGRAMMER REMOTE PLAN OF CARE WILL BE ESTABLISHED. Goal Provider Goal - A CHANGE MANAGEMENT COORDINATOR PLAN OF CARE WILL BE ESTABLISHED. Goal [...] End Date/Time Encounter Type Admission Type Attending [facility] Care Department Encounter ID Discharge Date Discharge Status Discharge Condition Discharge Reason Percent Goals Met 2024-11-30 00:00:00 2025-02-27 00:00:00 Outpatient NEW ADMISSION SULEIMAN DRUMMOND [facility] [id number] 50.43
[2024-12-17 06:14] LABS: Basophils Absolute Auto 0.1 X10*3/uL (0.0-0.2); Eosinophils Absolute Auto 0.3 X10*3/uL (0.0-0.4); Eosinophils Percent Auto 5.1 % (0-4); Hematocrit 40.6 % (37.0-47.0); Hemoglobin 13.6 g/dl (12.0-16.0); Imm Gran Abs Auto 0.02 X10*3/uL (0.00-0.03); Imm Gran Pct Auto 0.3 % (0.0-0.4); Lymphocytes Absolute Auto 1.7 X10*3/uL (1.2-4.9); Lymphocytes Percent Auto 24.9 % (20-40); Mean Corpuscular HGB Conc 33.5 g/dl (31.0-35.0); Mean Corpuscular Hemoglobin 28.4 pg (27.0-33.0); Mean Corpuscular Volume 84.8 fL (80.0-98.0); Mean Platelet Volume 9.8 fL (9.4-12.3); Monocytes Absolute Auto 0.6 X10*3/uL (0.1-1.2); Monocytes Percent Auto 9.4 % (2-11); Neutrophils Percent Auto 59.3 % (45-73); Platelet Count 213 X10*3/uL (160-400); Red Blood Count 4.79 X10*6/uL (4.20-5.50); Red Cell Distribution Width 15.9 % (11.0-16.0); White Blood Count 6.7 X10*3/uL (4.8-10.8)
[2024-12-17 06:30] LABS: Anion Gap 15 (12-20); Blood Urea Nitrogen 12 mg/dL (9-16); Calcium 9.2 mg/dL (8.4-10.2); Carbon Dioxide 21 mmol/L (22-29); Chloride 103 mmol/L (96-108); Estimated Glomerular Filt Rate > 60; Glucose Random 99 mg/dL (60-115); Potassium 4.1 mmol/L (3.3-5.1); Sodium 135 mmol/L (135-145)
== END 2024-12-17 05:58 | disposition home or self-care (01) ==
LOC: HO.MMNH2L 05:57
PROVIDERS: Visit Provider Student in an Organized Health Care Education/Training Program
DX: J96.01 Acute respiratory failure with hypoxia (principal); J69.0 Pneumonitis due to inhalation of food and vomit
CPT/HCPCS: 36415; 80048; 85025

== ENCOUNTER 2024-12-24 06:22 | Outpatient (REF) | payer MEDICARE, SELFPAY ==
[2024-12-24 05:58] LABS: MANUAL DIFF FLAG NO
[2024-12-24 06:13] LABS: Basophils Absolute Auto 0.1 X10*3/uL (0.0-0.2); Basophils Percent Auto 0.9 % (0-2); Eosinophils Absolute Auto 0.3 X10*3/uL (0.0-0.4); Eosinophils Percent Auto 3.7 % (0-4); Hematocrit 37.8 % (37.0-47.0); Hemoglobin 12.3 g/dl (12.0-16.0); Imm Gran Abs Auto 0.03 X10*3/uL (0.00-0.03); Imm Gran Pct Auto 0.4 % (0.0-0.4); Lymphocytes Absolute Auto 1.4 X10*3/uL (1.2-4.9); Lymphocytes Percent Auto 18.8 % (20-40); Mean Corpuscular HGB Conc 32.5 g/dl (31.0-35.0); Mean Corpuscular Hemoglobin 28.1 pg (27.0-33.0); Mean Corpuscular Volume 86.5 fL (80.0-98.0); Mean Platelet Volume 9.7 fL (9.4-12.3); Monocytes Absolute Auto 0.7 X10*3/uL (0.1-1.2); Monocytes Percent Auto 9.2 % (2-11); Neutrophils Absolute Auto 5.1 x10*3/uL (2.0-8.3); Platelet Count 217 X10*3/uL (160-400); Red Blood Count 4.37 X10*6/uL (4.20-5.50); Red Cell Distribution Width 16.3 % (11.0-16.0); White Blood Count 7.5 X10*3/uL (4.8-10.8)
--- OUTSIDE RECORDS SUMMARY | 2024-12-24 06:28 | XMS_ITS | Clinical Summary ---
Author Organization Unknown Care Team Providers Care Ash Collector Name Role Phone BRANDAN CAZARES, SHWETHA Unavailable Unavailable HODA RN, SULEIMAN Unavailable Unavailable MARGI RN, ISRAEL Unavailable Unavailgrady WOOD RN, MANUEL Unavailable Unavailable VERONIKA SITE SAFETY COORDINATOR, TERRANCE Unavailable Un available JOSE L SIGHT MOUNTER, MISTI Unavailable Unavailable MERCEDES RN, ROXANA Unavailable Unavailgrady MCINTYRE RN, HOLLIE Unavailable Unavailable RICH RN, DEXTER Unavailable Unavailable DRISS RN, ANDREI Unavailable Unavailable MAN RN, AJAY Unavailable Unavailable DEXTER SITE SAFETY COORDINATOR, JARRELL Unavailable Unavailable NORMA SIGHT MOUNTER, MAYELA Unavailable Unavailable JACINTA SIGHT MOUNTER, CARMENZA Unavailable Unavailable TORI RN, MELINDA Unavailable [...] Unavailable JOSE CEDILLO, ISA Unavailable Unavailgrady GALLAGHER OTHER SPATIAL SCIENTIST, JIGAR Unavailable Unavailable Payers Payer Name Policy Type Policy Number Effective Date Expira tion Date MEDICARE.NGS.HSP [id number] Problems Condition Name Condition Details Condition Category [...] 11-18 00:00: 00 11-30 00:00 :00 No [id number] Per instruc tions Per instructio ns (route: oral) Med Classific ation: Cardiovas cular Therapy Agents Eliquis 2.5 mg tablet 11-18 00:00: 00 11-30 00:00 :00 No [id number] Per instruc tions Per instructio ns (route: oral) Med Classific ation: Hematolog ical Agents lisinopril 5 mg tablet 11-18 00:00: 00 11-30 00:00 :00 No [id number] Per instruc tions Per instructio ns (route: oral) Med Classific ation: Cardiovas cular Therapy Agents metformin 500 mg tablet 11-18 00:00: 00 11-30 00:00 :00 No [id number] Per instruc tions Per instructio ns (route: oral) Med Classific ation: Endocrine metoprolol succinate ER 50 mg tablet,exte nded release 24 hr 11-18 00:00: 00 11-30 00:00 :00 No [id number] Per instruc tions Per instructio ns (route: oral) Med Classific ation: Cardiovas cular Therapy Agents nifedipine ER 30 mg tablet,exte nded release 24 hr 11-18 00:00: 00 11-30 00:00 :00 No [id number] Per instruc tions Per instructio ns (route: oral) Med Classific ation: Cardiovas cular Therapy Agents pravastatin 10 mg tablet 11-18 00:00: 00 11-30 00:00 :00 No [id number] Per instruc tions Per instructio ns (route: oral) Med Classific ation: Cardiovas cular Therapy Agents docusate sodium 50 mg/5 mL oral liquid 11-30 00:00: 00 Yes [id number] CONSTIPATIO N 10 mL EVERY AM 10 mL EVERY AM (route: oral) Med Classific ation: Gastroint estinal Therapy Agents Levsin 0.125 mg tablet 11-30 00:00: 00 Yes [id number] TRACHEAL SECRETIONS 1 tablet EVERY 4 HOURS 1 tablet EVERY 4 HOURS (route: oral) Alternate Route: UNDER THE TONGUE. Med Classific ation: Gastroint estinal Therapy Agents lorazepam 2 mg/mL oral concentrate 11-30 00:00: 00 Yes [id number] ANXIETY RESTLESSNES S 0.5 mg EVERY 2 HOURS 0.5 mg EVERY 2 HOURS (route: oral) Alternate Route: UNDER THE TONGUE. Med Classific ation: Central Nervous System Agents morphine concentrate 100 mg/5 mL (20 mg/mL) oral solution 11-30 00:00: 00 Yes [id number] PAIN, DYSPNEA 5 mg HOURLY 5 mg HOURLY (route: oral) Alternate Route: UNDER THE TONGUE. Med Classific ation: Analgesic , Anti-infl ammatory or Antipyret ic Fleet Enema 19 gram-7 gram/118 mL 11-30 00:00: 00 Yes [id number] CONSTIPATIO N 118 mL DAILY 118 mL DAILY (route: rectal) Med Classific ation: Gastroint estinal Therapy Agents bisacodyl 10 mg rectal suppository 11-30 00:00: 00 Yes [id number] CONSTIPATIO N 1 supposi tory, rectal DAILY 1 suppositor y, rectal DAILY (route: rectal) Med Classific ation: Gastroint estinal Therapy Agents Milk of Magnesia 400 mg/5 mL oral suspension 11-30 00:00: 00 Yes [id number] CONSTIPATIO N 30 mL DAILY 30 mL DAILY (route: oral) Med Classific ation: Gastroint estinal Therapy Agents Vital Signs Vital Name Observation Time Observation Value Commen ts Temperature 2024-12-21 13:13:00.000 98.1 [degF] Temperature 2024-12-19 10:00:00.000 99.6 [degF] Temperature 2024-12-11 14:00:00.000 97.4 [degF] Temperature 2024-12-07 12:59:00.000 98.4 [degF] Temperature 2024-12-03 22:12:00.000 97.7 [degF] Temperature 2024-11-30 10:55:00.000 98.2 [degF] BMI (%) 2024-11-30 10:55:00.000 22 kg/m2 Height 2024-11-30 10:55:00.000 62 [in_us] Pulse 2024-12-21 13:13:00.000 70 /min Pulse 2024-12-19 10:00:00.000 95 /min Pulse 2024-12-11 14:00:00.000 73 /min Pulse 2024-12-07 12:59:00.000 90 /min Pulse 2024-12-03 22:12:00.000 90 /min Pulse 2024-11-30 10:55:00.000 74 /min O2 Saturation (%) 2024-12-19 10:00:00.000 97 % O2 Saturation (%) 2024-11-30 10:55:00.000 93 % Respirations 2024-12-21 13:13:00.000 18 /min Respirations 2024-12-19 10:00:00.000 20 /min Respirations 2024-12-11 14:00:00.000 18 /min Respirations 2024-12-07 12:59:00.000 18 /min Respirations 2024-12-03 22:12:00.000 18 /min Respirations 2024-11-30 10:55:00.000 18 /min Weight (lbs) 2024-11-30 10:55:00.000 122 [lb_av] Systolic Blood Pressure 2024-12-21 13:13:00.000 126 mm [Hg] Systolic Blood Pressure 2024-12-19 10:00:00.000 125 mm [Hg] Systolic Blood Pressure 2024-12-11 14:00:00.000 110 mm [Hg] Systolic Blood Pressure 2024-12-07 12:59:00.000 126 mm [Hg] Systolic Blood Pressure 2024-12-03 22:12:00.000 102 mm [Hg] Systolic Blood Pressure 2024-11-30 10:55:00.000 116 mm [Hg] Diastolic Blood Pressure 2024-12-21 13:13:00.000 84 mm [Hg] Diastolic Blood Pressure 2024-12-19 10:00:00.000 82 mm [Hg] Diastolic Blood Pressure 2024-12-11 14:00:00.000 70 mm [Hg] Diastolic Blood Pressure 2024-12-07 12:59:00.000 80 mm [Hg] Diastolic Blood Pressure 2024-12-03 22:12:00.000 73 mm [Hg] Diastolic Blood Pressure 2024-11-30 10:55:00.000 56 mm [Hg] Plan of Treatment Planned Activity Planned Date Details Comments Future Scheduled Test CHIEF QUALITY OFFICER TO EVALUATE PATIENT, DISEASE PROCESS, SYMPTOMS, AND OTHER CONDITIONS AND DEVELOP A NURSING PLAN OF CARE PART OF THE COMPREHENSIVE PLAN OF CARE DEVELOPMENT PROCESS. [code = CHIEF QUALITY OFFICER TO EVALUATE PATIENT, DISEASE PROCESS, SYMPTOMS, AND OTHER CONDITIONS AND DEVELOP A NURSING PLAN OF CARE PART OF THE COMPREHENSIVE PLAN OF CARE DEVELOPMENT PROCESS.] Future Scheduled Test RN/OTHER SPATIAL SCIENTIST/CH TO EVALUATE PT/CAREGIVER THOUGHTS REGARDING WHAT IS IMPORTANT/MEANINGFUL TO THEM TO IMPROVE QOL AND ENHANCE PATIENT EXPERIENCE WHILE ON HOSPICE SERVICES. [code = RN/OTHER SPATIAL SCIENTIST/CH TO EVALUATE PT/CAREGIVER THOUGHTS REGARDING WHAT IS [...] PROVIDE SUPPORTIVE COUNSELING. REFER TO IDG MEMBER, OTHER SPATIAL SCIENTIST, SPIRITUAL COUNSELOR, BEREAVEMENT FOR ADDITIONAL PERSONAL COMPUTER NETWORK ANALYST. [code = HOSPICE NURSE TO ASSESS FOR GRIEVING ISSUES/COMPLICATIONS AND PROVIDE SUPPORTIVE COUNSELING. REFER TO IDG MEMBER, OTHER SPATIAL SCIENTIST, SPIRITUAL COUNSELOR, BEREAVEMENT FOR ADDITIONAL PERSONAL COMPUTER NETWORK ANALYST.] Future Scheduled Test HOSPICE NU RSE FOR [...] DEVELOP A PLAN OF CARE. [code = DELINQUENT TAX COLLECTOR TO EVALUATE SOCIAL, EMOTIONAL AND FINANCIAL FACTORS RELATED TO THE PATIENT'S ILLNESS, NEED FOR ADDITIONAL CARE/RESOURCES, ADJUSTMENT TO CARE AND DEVELOP A PLAN OF CARE.] Future Scheduled Test GENERAL HARDWARE SALESPERSON T O CONDUCT SPIRITUAL ASSESSMENT OF PATIENT/FAMILY/CAREGIVER AND DEVELOP A PLAN OF CARE. [code = GENERAL HARDWARE SALESPERSON TO CONDUCT SPIRITUAL ASSESSMENT OF PATIENT/FAMILY/CAREGIVER AND [...] HOSPICE SERVICE. Goal Provider Goal - A DELINQUENT TAX COLLECTOR PLAN OF CARE WILL BE ESTABLISHED. Goal Provider Goal - A GENERAL HARDWARE SALESPERSON PLAN OF CARE WILL BE ESTABLISHED. Goal [...] 2024-11-30 00:00:00 2025-02-27 00:00:00 Outpatient NEW ADMISSION [facility]CHO [facility] ED [id number] 50.43
--- OUTSIDE RECORDS SUMMARY | 2024-12-24 06:29 | XMS_ITS | Clinical Summary ---
Author Organization Unknown Care Team Providers Care Kiln Burner Name Role Phone BRANDAN CAZARES, SHWETHA Unavailable Unavailable HODA RN, SULEIMAN Unavailable Unavailable MARGI RN, ISRAEL Unavailable Unavailgrady WOOD RN, MANUEL Unavailable Unavailable VERONIKA LEAD AUDITOR, TERRANCE Unavailable Un available JOSE L CHRISTIAN SCIENCE NURSE, MISTI Unavailable Unavailable MERCEDES RN, ROXANA Unavailable Unavailgrady MCINTYRE RN, HOLLIE Unavailable Unavailable RICH RN, DEXTER Unavailable Unavailable DRISS RN, ANDREI Unavailable Unavailable MAN RN, AJAY Unavailable Unavailable DEXTER LEAD AUDITOR, JARRELL Unavailable Unavailable NORMA CHRISTIAN SCIENCE NURSE, MAYELA Unavailable Unavailable JACINTA CHRISTIAN SCIENCE NURSE, CARMENZA Unavailable Unavailable TORI RN, MELINDA Unavailable [...] Unavailable JOSE CEDILLO, ISA Unavailable Unavailgrady GALLAGHER PROCESS IMPROVEMENT SPECIALIST, JIGAR Unavailable Unavailable Payers Payer Name Policy Type Policy Number Effective Date Expira tion Date MEDICARE.NGS.HSP [id number] Problems Condition Name Condition Details Condition Category [...] 11-18 00:00: 00 11-30 00:00 :00 No [id number] Per instruc tions Per instructio ns (route: oral) Med Classific ation: Cardiovas cular Therapy Agents Eliquis 2.5 mg tablet 11-18 00:00: 00 11-30 00:00 :00 No [id number] Per instruc tions Per instructio ns (route: oral) Med Classific ation: Hematolog ical Agents lisinopril 5 mg tablet 11-18 00:00: 00 11-30 00:00 :00 No [id number] Per instruc tions Per instructio ns (route: oral) Med Classific ation: Cardiovas cular Therapy Agents metformin 500 mg tablet 11-18 00:00: 00 11-30 00:00 :00 No [id number] Per instruc tions Per instructio ns (route: oral) Med Classific ation: Endocrine metoprolol succinate ER 50 mg tablet,exte nded release 24 hr 11-18 00:00: 00 11-30 00:00 :00 No [id number] Per instruc tions Per instructio ns (route: oral) Med Classific ation: Cardiovas cular Therapy Agents nifedipine ER 30 mg tablet,exte nded release 24 hr 11-18 00:00: 00 11-30 00:00 :00 No [id number] Per instruc tions Per instructio ns (route: oral) Med Classific ation: Cardiovas cular Therapy Agents pravastatin 10 mg tablet 11-18 00:00: 00 11-30 00:00 :00 No [id number] Per instruc tions Per instructio ns (route: oral) Med Classific ation: Cardiovas cular Therapy Agents docusate sodium 50 mg/5 mL oral liquid 11-30 00:00: 00 Yes [id number] CONSTIPATIO N 10 mL EVERY AM 10 mL EVERY AM (route: oral) Med Classific ation: Gastroint estinal Therapy Agents Levsin 0.125 mg tablet 11-30 00:00: 00 Yes [id number] TRACHEAL SECRETIONS 1 tablet EVERY 4 HOURS 1 tablet EVERY 4 HOURS (route: oral) Alternate Route: UNDER THE TONGUE. Med Classific ation: Gastroint estinal Therapy Agents lorazepam 2 mg/mL oral concentrate 11-30 00:00: 00 Yes [id number] ANXIETY RESTLESSNES S 0.5 mg EVERY 2 HOURS 0.5 mg EVERY 2 HOURS (route: oral) Alternate Route: UNDER THE TONGUE. Med Classific ation: Central Nervous System Agents morphine concentrate 100 mg/5 mL (20 mg/mL) oral solution 11-30 00:00: 00 Yes [id number] PAIN, DYSPNEA 5 mg HOURLY 5 mg HOURLY (route: oral) Alternate Route: UNDER THE TONGUE. Med Classific ation: Analgesic , Anti-infl ammatory or Antipyret ic Fleet Enema 19 gram-7 gram/118 mL 11-30 00:00: 00 Yes [id number] CONSTIPATIO N 118 mL DAILY 118 mL DAILY (route: rectal) Med Classific ation: Gastroint estinal Therapy Agents bisacodyl 10 mg rectal suppository 11-30 00:00: 00 Yes [id number] CONSTIPATIO N 1 supposi tory, rectal DAILY 1 suppositor y, rectal DAILY (route: rectal) Med Classific ation: Gastroint estinal Therapy Agents Milk of Magnesia 400 mg/5 mL oral suspension 11-30 00:00: 00 Yes [id number] CONSTIPATIO N 30 mL DAILY 30 mL [...] Planned Date Details Comments Future Scheduled Test KNOT BORER TO EVALUATE PATIENT, DISEASE PROCESS, SYMPTOMS, AND OTHER CONDITIONS AND DEVELOP A NURSING PLAN OF CARE PART OF THE COMPREHENSIVE PLAN OF CARE DEVELOPMENT PROCESS. [code = KNOT BORER TO EVALUATE PATIENT, DISEASE PROCESS, SYMPTOMS, AND OTHER CONDITIONS AND DEVELOP A NURSING PLAN OF CARE PART OF THE COMPREHENSIVE PLAN OF CARE DEVELOPMENT PROCESS.] Future Scheduled Test RN/PROCESS IMPROVEMENT SPECIALIST/CH TO EVALUATE PT/CAREGIVER THOUGHTS REGARDING WHAT IS IMPORTANT/MEANINGFUL TO THEM TO IMPROVE QOL AND ENHANCE PATIENT EXPERIENCE WHILE ON HOSPICE SERVICES. [code = RN/PROCESS IMPROVEMENT SPECIALIST/CH TO EVALUATE PT/CAREGIVER THOUGHTS REGARDING WHAT IS [...] PROVIDE SUPPORTIVE COUNSELING. REFER TO IDG MEMBER, PROCESS IMPROVEMENT SPECIALIST, SPIRITUAL COUNSELOR, BEREAVEMENT FOR ADDITIONAL REJECT OPENER. [code = HOSPICE NURSE TO ASSESS FOR GRIEVING ISSUES/COMPLICATIONS AND PROVIDE SUPPORTIVE COUNSELING. REFER TO IDG MEMBER, PROCESS IMPROVEMENT SPECIALIST, SPIRITUAL COUNSELOR, BEREAVEMENT FOR ADDITIONAL REJECT OPENER.] Future Scheduled Test HOSPICE NU RSE FOR [...] DEVELOP A PLAN OF CARE. [code = FLOUR DISTRIBUTOR TO EVALUATE SOCIAL, EMOTIONAL AND FINANCIAL FACTORS RELATED TO THE PATIENT'S ILLNESS, NEED FOR ADDITIONAL CARE/RESOURCES, ADJUSTMENT TO CARE AND DEVELOP A PLAN OF CARE.] Future Scheduled Test ASSOCIATE CIVIL ENGINEER T O CONDUCT SPIRITUAL ASSESSMENT OF PATIENT/FAMILY/CAREGIVER AND DEVELOP A PLAN OF CARE. [code = ASSOCIATE CIVIL ENGINEER TO CONDUCT SPIRITUAL ASSESSMENT OF PATIENT/FAMILY/CAREGIVER AND [...] HOSPICE SERVICE. Goal Provider Goal - A FLOUR DISTRIBUTOR PLAN OF CARE WILL BE ESTABLISHED. Goal Provider Goal - A ASSOCIATE CIVIL ENGINEER PLAN OF CARE WILL BE ESTABLISHED. Goal [...] 2025-02-27 00:00:00 Outpatient NEW ADMISSION [facility] [id number] 50.43
[2024-12-24 06:40] LABS: Anion Gap 14 (12-20); Blood Urea Nitrogen 14 mg/dL (9-16); Carbon Dioxide 23 mmol/L (22-29); Chloride 102 mmol/L (96-108); Estimated Glomerular Filt Rate > 60; Glucose Random 106 mg/dL (60-115); Potassium 4.2 mmol/L (3.3-5.1); Sodium 135 mmol/L (135-145)
== END 2024-12-24 06:23 | disposition home or self-care (01) ==
LOC: HO.MMNH2L 06:22
PROVIDERS: Visit Provider Student in an Organized Health Care Education/Training Program
DX: J96.01 Acute respiratory failure with hypoxia (principal); J69.0 Pneumonitis due to inhalation of food and vomit
CPT/HCPCS: 36415; 80048; 85025

== ENCOUNTER 2024-12-31 06:19 | Outpatient (REF) | payer MEDICARE, SELFPAY ==
[2024-12-31 06:10] LABS: MANUAL DIFF FLAG NO
--- OUTSIDE RECORDS SUMMARY | 2024-12-31 06:21 | XMS_ITS | Clinical Summary ---
Author Organization Unknown Care Team Providers Care Coating Supervisor Name Role Phone BRANDAN CAZARES, SHWETHA Unavailable Unavailable HODA RN, SULEIMAN Unavailable Unavailable MARGI RN, ISRAEL Unavailable Unavailgrady WOOD RN, MANUEL Unavailable Unavailable VERONIKA CONTACT LENS BLOCKER, TERRANCE Unavailable Un available JOSE L RADIO SURVEY WORKER, MISTI Unavailable Unavailable MERCEDES RN, ROXANA Unavailable Unavailgrady MCINTYRE RN, HOLLIE Unavailable Unavailable RICH RN, DEXTER Unavailable Unavailable DRISS RN, ANDREI Unavailable Unavailable MAN RN, AJAY Unavailable Unavailable DEXTER CONTACT LENS BLOCKER, JARRELL Unavailable Unavailable NORMA RADIO SURVEY WORKER, MAYELA Unavailable Unavailable JACINTA RADIO SURVEY WORKER, CARMENZA Unavailable Unavailable TORI RN, MELINDA Unavailable [...] Unavailable JOSE CEDILLO, ISA Unavailable Unavailgrady GALLAGHER HISTORIC CLOTHING AND COSTUME MAKER, JIGAR Unavailable Unavailable Payers Payer Name Policy Type Policy Number Effective Date Expira tion Date MEDICARE.NGS.HSP [id number] Problems Condition Name Condition Details Condition Category Status Onset Date Resolution Date Last Treatment Date Treating Clinician Comments 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 [...] 11-18 00:00: 00 11-30 00:00 :00 No [id number] Per instruc tions Per instructio ns (route: oral) Med Classific ation: Cardiovas cular Therapy Agents Eliquis 2.5 mg tablet 11-18 00:00: 00 11-30 00:00 :00 No [id number] Per instruc tions Per instructio ns (route: oral) Med Classific ation: Hematolog ical Agents lisinopril 5 mg tablet 11-18 00:00: 00 11-30 00:00 :00 No [id number] Per instruc tions Per instructio ns (route: oral) Med Classific ation: Cardiovas cular Therapy Agents metformin 500 mg tablet 11-18 00:00: 00 11-30 00:00 :00 No [id number] Per instruc tions Per instructio ns (route: oral) Med Classific ation: Endocrine metoprolol succinate ER 50 mg tablet,exte nded release 24 hr 11-18 00:00: 00 11-30 00:00 :00 No [id number] Per instruc tions Per instructio ns (route: oral) Med Classific ation: Cardiovas cular Therapy Agents nifedipine ER 30 mg tablet,exte nded release 24 hr 11-18 00:00: 00 11-30 00:00 :00 No [id number] Per instruc tions Per instructio ns (route: oral) Med Classific ation: Cardiovas cular Therapy Agents pravastatin 10 mg tablet 11-18 00:00: 00 11-30 00:00 :00 No [id number] Per instruc tions Per instructio ns (route: oral) Med Classific ation: Cardiovas cular Therapy Agents docusate sodium 50 mg/5 mL oral liquid 11-30 00:00: 00 Yes [id number] CONSTIPATIO N 10 mL EVERY AM 10 mL EVERY AM (route: oral) Med Classific ation: Gastroint estinal Therapy Agents Levsin 0.125 mg tablet 11-30 00:00: 00 Yes [id number] TRACHEAL SECRETIONS 1 tablet EVERY 4 HOURS 1 tablet EVERY 4 HOURS (route: oral) Alternate Route: UNDER THE TONGUE. Med Classific ation: Gastroint estinal Therapy Agents lorazepam 2 mg/mL oral concentrate 11-30 00:00: 00 Yes [id number] ANXIETY RESTLESSNES S 0.5 mg EVERY 2 HOURS 0.5 mg EVERY 2 HOURS (route: oral) Alternate Route: UNDER THE TONGUE. Med Classific ation: Central Nervous System Agents morphine concentrate 100 mg/5 mL (20 mg/mL) oral solution 11-30 00:00: 00 Yes [id number] PAIN, DYSPNEA 5 mg HOURLY 5 mg HOURLY (route: oral) Alternate Route: UNDER THE TONGUE. Med Classific ation: Analgesic , Anti-infl ammatory or Antipyret ic Fleet Enema 19 gram-7 gram/118 mL 11-30 00:00: 00 Yes [id number] CONSTIPATIO N 118 mL DAILY 118 mL DAILY (route: rectal) Med Classific ation: Gastroint estinal Therapy Agents bisacodyl 10 mg rectal suppository 11-30 00:00: 00 Yes [id number] CONSTIPATIO N 1 supposi tory, rectal DAILY 1 suppositor y, rectal DAILY (route: rectal) Med Classific ation: Gastroint estinal Therapy Agents Milk of Magnesia 400 mg/5 mL oral suspension 11-30 00:00: 00 Yes [id number] CONSTIPATIO N 30 mL DAILY 30 mL DAILY (route: oral) Med Classific ation: Gastroint estinal Therapy Agents Vital Signs Vital Name Observation Time Observation Value Commen ts Temperature 2024-12-28 10:30:00.000 99.6 [degF] Temperature 2024-12-21 13:13:00.000 98.1 [degF] Temperature 2024-12-19 10:00:00.000 99.6 [degF] Temperature 2024-12-11 14:00:00.000 97.4 [degF] Temperature 2024-12-07 12:59:00.000 98.4 [degF] Temperature 2024-12-03 22:12:00.000 97.7 [degF] Temperature 2024-11-30 10:55:00.000 98.2 [degF] BMI (%) 2024-11-30 10:55:00.000 22 kg/m2 Height 2024-11-30 10:55:00.000 62 [in_us] Pulse 2024-12-28 10:30:00.000 83 /min Pulse 2024-12-21 13:13:00.000 70 /min Pulse 2024-12-19 10:00:00.000 95 /min Pulse 2024-12-11 14:00:00.000 73 /min Pulse 2024-12-07 12:59:00.000 90 /min Pulse 2024-12-03 22:12:00.000 90 /min Pulse 2024-11-30 10:55:00.000 74 /min O2 Saturation (%) 2024-12-28 10:30:00.000 99 % O2 Saturation (%) 2024-12-19 10:00:00.000 97 % O2 Saturation (%) 2024-11-30 10:55:00.000 93 % Respirations 2024-12-28 10:30:00.000 22 /min Respirations 2024-12-21 13:13:00.000 18 /min Respirations 2024-12-19 10:00:00.000 20 /min Respirations 2024-12-11 14:00:00.000 18 /min Respirations 2024-12-07 12:59:00.000 18 /min Respirations 2024-12-03 22:12:00.000 18 /min Respirations 2024-11-30 10:55:00.000 18 /min Weight (lbs) 2024-11-30 10:55:00.000 122 [lb_av] Systolic Blood Pressure 2024-12-28 10:30:00.000 111 mm [Hg] Systolic Blood Pressure 2024-12-21 13:13:00.000 126 mm [Hg] Systolic Blood Pressure 2024-12-19 10:00:00.000 125 mm [Hg] Systolic Blood Pressure 2024-12-11 14:00:00.000 110 mm [Hg] Systolic Blood Pressure 2024-12-07 12:59:00.000 126 mm [Hg] Systolic Blood Pressure 2024-12-03 22:12:00.000 102 mm [Hg] Systolic Blood Pressure 2024-11-30 10:55:00.000 116 mm [Hg] Diastolic Blood Pressure 2024-12-28 10:30:00.000 75 mm [Hg] Diastolic Blood Pressure 2024-12-21 13:13:00.000 84 mm [Hg] Diastolic Blood Pressure 2024-12-19 10:00:00.000 82 mm [Hg] Diastolic Blood Pressure 2024-12-11 14:00:00.000 70 mm [Hg] Diastolic Blood Pressure 2024-12-07 12:59:00.000 80 mm [Hg] Diastolic Blood Pressure 2024-12-03 22:12:00.000 73 mm [Hg] Diastolic Blood Pressure 2024-11-30 10:55:00.000 56 mm [Hg] Plan of Treatment Planned Activity Planned Date Details Comments Future Scheduled Test MOBILITY MANAGER TO EVALUATE PATIENT, DISEASE PROCESS, SYMPTOMS, AND OTHER CONDITIONS AND DEVELOP A NURSING PLAN OF CARE PART OF THE COMPREHENSIVE PLAN OF CARE DEVELOPMENT PROCESS. [code = MOBILITY MANAGER TO EVALUATE PATIENT, DISEASE PROCESS, SYMPTOMS, AND OTHER CONDITIONS AND DEVELOP A NURSING PLAN OF CARE PART OF THE COMPREHENSIVE PLAN OF CARE DEVELOPMENT PROCESS.] Future Scheduled Test RN/HISTORIC CLOTHING AND COSTUME MAKER/CH TO EVALUATE PT/CAREGIVER THOUGHTS REGARDING WHAT IS IMPORTANT/MEANINGFUL TO THEM TO IMPROVE QOL AND ENHANCE PATIENT EXPERIENCE WHILE ON HOSPICE SERVICES. [code = RN/HISTORIC CLOTHING AND COSTUME MAKER/CH TO EVALUATE PT/CAREGIVER THOUGHTS REGARDING WHAT IS [...] SALINE INTO BALLOON AND SECURE TUBING WITH [employer] SECURE DEVICE. CHANGE EVERY 4 WEEKS AND [...] PROVIDE SUPPORTIVE COUNSELING. REFER TO IDG MEMBER, HISTORIC CLOTHING AND COSTUME MAKER, SPIRITUAL COUNSELOR, BEREAVEMENT FOR ADDITIONAL SIDE PANEL PADDER. [code = HOSPICE NURSE TO ASSESS FOR GRIEVING ISSUES/COMPLICATIONS AND PROVIDE SUPPORTIVE COUNSELING. REFER TO IDG MEMBER, HISTORIC CLOTHING AND COSTUME MAKER, SPIRITUAL COUNSELOR, BEREAVEMENT FOR ADDITIONAL SIDE PANEL PADDER.] Future Scheduled Test HOSPICE NU RSE FOR [...] DEVELOP A PLAN OF CARE. [code = MERCHANDISING LEAD TO EVALUATE SOCIAL, EMOTIONAL AND FINANCIAL FACTORS RELATED TO THE PATIENT'S ILLNESS, NEED FOR ADDITIONAL CARE/RESOURCES, ADJUSTMENT TO CARE AND DEVELOP A PLAN OF CARE.] Future Scheduled Test CONSULTING NURSE T O CONDUCT SPIRITUAL ASSESSMENT OF PATIENT/FAMILY/CAREGIVER AND DEVELOP A PLAN OF CARE. [code = CONSULTING NURSE TO CONDUCT SPIRITUAL ASSESSMENT OF PATIENT/FAMILY/CAREGIVER AND [...] HOSPICE SERVICE. Goal Provider Goal - A MERCHANDISING LEAD PLAN OF CARE WILL BE ESTABLISHED. Goal Provider Goal - A CONSULTING NURSE PLAN OF CARE WILL BE ESTABLISHED. Goal [...] End Date/Time Encounter Type Admission Type Attending [facility] Care Facility Care Department Encounter ID Discharge Date Discharge Status Discharge Condition Discharge Reason Percent Goals Met 2024-11-30 00:00:00 2025-02-27 00:00:00 Outpatient NEW ADMISSION [place], [facility] [id number] 58.09
--- OUTSIDE RECORDS SUMMARY | 2024-12-31 06:21 | XMS_ITS | Clinical Summary ---
Author Organization Unknown Care Team Providers Care Tipping Machine Operator Automatic Name Role Phone BRANDAN CAZARES, SHWETHA Unavailable Unavailable HODA RN, SULEIMAN Unavailable Unavailable MARGI RN, ISRAEL Unavailable Unavailgrady WOOD RN, MANUEL Unavailable Unavailable VERONIKA BEACH PATROL LIEUTENANT, TERRANCE Unavailable Un available JOSE L PRECONSTRUCTION MANAGER, MISTI Unavailable Unavailable MERCEDES RN, ROXANA Unavailable Unavailgrady MCINTYRE RN, HOLLIE Unavailable Unavailable RICH RN, DEXTER Unavailable Unavailable DRISS RN, ANDREI Unavailable Unavailable MAN RN, AJAY Unavailable Unavailable DEXTER BEACH PATROL LIEUTENANT, JARRELL Unavailable Unavailable NORMA PRECONSTRUCTION MANAGER, MAYELA Unavailable Unavailable JACINTA PRECONSTRUCTION MANAGER, CARMENZA Unavailable Unavailable TORI RN, MELINDA Unavailable [...] Unavailable JOSE CEDILLO, ISA Unavailable Unavailgrady GALLAGHER CHILLER OPERATOR, JIGAR Unavailable Unavailable Payers Payer Name Policy Type Policy Number Effective Date Expira tion Date MEDICARE.NGS.HSP [id number] Problems Condition Name Condition Details Condition Category Status Onset Date Resolution Date Last Treatment Date Treating Clinician Comments 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 11-30 00:00: 00 UNSPECIFIED PROTEIN-SRATHAK TYSON MALNUTRITION Active 11-30 00:00: 00 PERMANENT [...] 11-18 00:00: 00 11-30 00:00 :00 No [id number] Per instruc tions Per instructio ns (route: oral) Med Classific ation: Cardiovas cular Therapy Agents Eliquis 2.5 mg tablet 11-18 00:00: 00 11-30 00:00 :00 No [id number] Per instruc tions Per instructio ns (route: oral) Med Classific ation: Hematolog ical Agents lisinopril 5 mg tablet 11-18 00:00: 00 11-30 00:00 :00 No [id number] Per instruc tions Per instructio ns (route: oral) Med Classific ation: Cardiovas cular Therapy Agents metformin 500 mg tablet 11-18 00:00: 00 11-30 00:00 :00 No [id number] Per instruc tions Per instructio ns (route: oral) Med Classific ation: Endocrine metoprolol succinate ER 50 mg tablet,exte nded release 24 hr 11-18 00:00: 00 11-30 00:00 :00 No [id number] Per instruc tions Per instructio ns (route: oral) Med Classific ation: Cardiovas cular Therapy Agents nifedipine ER 30 mg tablet,exte nded release 24 hr 11-18 00:00: 00 11-30 00:00 :00 No [id number] Per instruc tions Per instructio ns (route: oral) Med Classific ation: Cardiovas cular Therapy Agents pravastatin 10 mg tablet 11-18 00:00: 00 11-30 00:00 :00 No [id number] Per instruc tions Per instructio ns (route: oral) Med Classific ation: Cardiovas cular Therapy Agents docusate sodium 50 mg/5 mL oral liquid 11-30 00:00: 00 Yes [id number] CONSTIPATIO N 10 mL EVERY AM 10 mL EVERY AM (route: oral) Med Classific ation: Gastroint estinal Therapy Agents Levsin 0.125 mg tablet 11-30 00:00: 00 Yes [id number] TRACHEAL SECRETIONS 1 tablet EVERY 4 HOURS 1 tablet EVERY 4 HOURS (route: oral) Alternate Route: UNDER THE TONGUE. Med Classific ation: Gastroint estinal Therapy Agents lorazepam 2 mg/mL oral concentrate 11-30 00:00: 00 Yes [id number] ANXIETY RESTLESSNES S 0.5 mg EVERY 2 HOURS 0.5 mg EVERY 2 HOURS (route: oral) Alternate Route: UNDER THE TONGUE. Med Classific ation: Central Nervous System Agents morphine concentrate 100 mg/5 mL (20 mg/mL) oral solution 11-30 00:00: 00 Yes [id number] PAIN, DYSPNEA 5 mg HOURLY 5 mg HOURLY (route: oral) Alternate Route: UNDER THE TONGUE. Med Classific ation: Analgesic , Anti-infl ammatory or Antipyret ic Fleet Enema 19 gram-7 gram/118 mL 11-30 00:00: 00 Yes [id number] CONSTIPATIO N 118 mL DAILY 118 mL DAILY (route: rectal) Med Classific ation: Gastroint estinal Therapy Agents bisacodyl 10 mg rectal suppository 11-30 00:00: 00 Yes [id number] CONSTIPATIO N 1 supposi tory, rectal DAILY 1 suppositor y, rectal DAILY (route: rectal) Med Classific ation: Gastroint estinal Therapy Agents Milk of Magnesia 400 mg/5 mL oral suspension 11-30 00:00: 00 Yes [id number] CONSTIPATIO N 30 mL DAILY 30 mL [...] Planned Date Details Comments Future Scheduled Test BACTERIOLOGY TECHNICIAN TO EVALUATE PATIENT, DISEASE PROCESS, SYMPTOMS, AND OTHER CONDITIONS AND DEVELOP A NURSING PLAN OF CARE PART OF THE COMPREHENSIVE PLAN OF CARE DEVELOPMENT PROCESS. [code = BACTERIOLOGY TECHNICIAN TO EVALUATE PATIENT, DISEASE PROCESS, SYMPTOMS, AND OTHER CONDITIONS AND DEVELOP A NURSING PLAN OF CARE PART OF THE COMPREHENSIVE PLAN OF CARE DEVELOPMENT PROCESS.] Future Scheduled Test RN/CHILLER OPERATOR/CH TO EVALUATE PT/CAREGIVER THOUGHTS REGARDING WHAT IS IMPORTANT/MEANINGFUL TO THEM TO IMPROVE QOL AND ENHANCE PATIENT EXPERIENCE WHILE ON HOSPICE SERVICES. [code = RN/CHILLER OPERATOR/CH TO EVALUATE PT/CAREGIVER THOUGHTS REGARDING WHAT IS [...] SALINE INTO BALLOON AND SECURE TUBING WITH STATBO.LT SECURE DEVICE. CHANGE EVERY 4 WEEKS AND [...] PROVIDE SUPPORTIVE COUNSELING. REFER TO IDG MEMBER, CHILLER OPERATOR, SPIRITUAL COUNSELOR, BEREAVEMENT FOR ADDITIONAL SHIPPING AND RECEIVING. [code = HOSPICE NURSE TO ASSESS FOR GRIEVING ISSUES/COMPLICATIONS AND PROVIDE SUPPORTIVE COUNSELING. REFER TO IDG MEMBER, CHILLER OPERATOR, SPIRITUAL COUNSELOR, BEREAVEMENT FOR ADDITIONAL SHIPPING AND RECEIVING.] Future Scheduled Test HOSPICE NU RSE FOR [...] DEVELOP A PLAN OF CARE. [code = RADAR OPERATOR TO EVALUATE SOCIAL, EMOTIONAL AND FINANCIAL FACTORS RELATED TO THE PATIENT'S ILLNESS, NEED FOR ADDITIONAL CARE/RESOURCES, ADJUSTMENT TO CARE AND DEVELOP A PLAN OF CARE.] Future Scheduled Test PACKAGING ASSEMBLER T O CONDUCT SPIRITUAL ASSESSMENT OF PATIENT/FAMILY/CAREGIVER AND DEVELOP A PLAN OF CARE. [code = PACKAGING ASSEMBLER TO CONDUCT SPIRITUAL ASSESSMENT OF PATIENT/FAMILY/CAREGIVER AND [...] HOSPICE SERVICE. Goal Provider Goal - A RADAR OPERATOR PLAN OF CARE WILL BE ESTABLISHED. Goal Provider Goal - A PACKAGING ASSEMBLER PLAN OF CARE WILL BE ESTABLISHED. Goal [...] End Date/Time Encounter Type Admission Type Attending [facility] Care Facility Care Department Encounter ID Discharge Date Discharge Status Discharge Condition Discharge Reason Percent Goals Met 2024-11-30 00:00:00 2025-02-27 00:00:00 Outpatient NEW ADMISSION [place], [facility] [id number] 58.09
[2024-12-31 06:42] LABS: Basophils Absolute Auto 0.1 X10*3/uL (0.0-0.2); Basophils Percent Auto 0.8 % (0-2); Eosinophils Absolute Auto 0.2 X10*3/uL (0.0-0.4); Eosinophils Percent Auto 3.1 % (0-4); Hematocrit 41.1 % (37.0-47.0); Hemoglobin 13.6 g/dl (12.0-16.0); Imm Gran Abs Auto 0.03 X10*3/uL (0.00-0.03); Imm Gran Pct Auto 0.4 % (0.0-0.4); Lymphocytes Absolute Auto 1.7 X10*3/uL (1.2-4.9); Lymphocytes Percent Auto 23.1 % (20-40); Mean Corpuscular HGB Conc 33.1 g/dl (31.0-35.0); Mean Corpuscular Hemoglobin 28.3 pg (27.0-33.0); Mean Corpuscular Volume 85.6 fL (80.0-98.0); Mean Platelet Volume 9.8 fL (9.4-12.3); Monocytes Absolute Auto 0.6 X10*3/uL (0.1-1.2); Monocytes Percent Auto 8.3 % (2-11); Neutrophils Absolute Auto 4.8 x10*3/uL (2.0-8.3); Neutrophils Percent Auto 64.3 % (45-73); Platelet Count 228 X10*3/uL (160-400); Red Cell Distribution Width 16.6 % (11.0-16.0); White Blood Count 7.5 X10*3/uL (4.8-10.8)
[2024-12-31 07:01] LABS: Anion Gap 14 (12-20); Blood Urea Nitrogen 13 mg/dL (9-16); Calcium 9.3 mg/dL (8.4-10.2); Carbon Dioxide 23 mmol/L (22-29); Chloride 104 mmol/L (96-108); Estimated Glomerular Filt Rate > 60; Glucose Random 94 mg/dL (60-115); Potassium 4.5 mmol/L (3.3-5.1); Sodium 136 mmol/L (135-145)
== END 2024-12-31 06:20 | disposition home or self-care (01) ==
LOC: HO.MMNH2L 06:19
PROVIDERS: Visit Provider Student in an Organized Health Care Education/Training Program
DX: J96.01 Acute respiratory failure with hypoxia (principal); J69.0 Pneumonitis due to inhalation of food and vomit
CPT/HCPCS: 36415; 80048; 85025

== ENCOUNTER 2025-01-07 06:18 | Outpatient (REF) | payer MEDICARE, SELFPAY ==
[2025-01-07 06:10] LABS: MANUAL DIFF FLAG NO
--- OUTSIDE RECORDS SUMMARY | 2025-01-07 06:27 | XMS_ITS | Clinical Summary ---
Author Organization Unknown Care Team Providers Care Gold Beater Name Role Phone BRANDAN CAZARES, SHWETHA Unavailable Unavailable HODA RN, SULEIMAN Unavailable Unavailable MARGI RN, ISRAEL Unavailable Unavailgrady WOOD RN, MANUEL Unavailable Unavailable VERONIKA INDUSTRIAL TRAINER, TERRANCE Unavailable Un available JOSE L INTEGRITY CONSULTANT, MISTI Unavailable Unavailable MERCEDES RN, ROXANA Unavailable Unavailgrady MCINTYRE RN, HOLLIE Unavailable Unavailable RICH RN, DEXTER Unavailable Unavailable DRISS RN, ANDREI Unavailable Unavailable MAN RN, AJAY Unavailable Unavailable DEXTER INDUSTRIAL TRAINER, JARRELL Unavailable Unavailable NORMA INTEGRITY CONSULTANT, MAYELA Unavailable Unavailable JACINTA INTEGRITY CONSULTANT, CARMENZA Unavailable Unavailable TORI RN, MELINDA Unavailable [...] Unavailable JOSE CEDILLO, ISA Unavailable Unavailgrady GALLAGHER PLANT WORKER, JIGAR Unavailable Unavailable Payers Payer Name Policy Type Policy Number Effective Date Expira tion Date MEDICARE.NGS.HSP [id number] Problems Condition Name Condition Details Condition Category [...] 11-18 00:00: 00 11-30 00:00 :00 No [id number] Per instruc tions Per instructio ns (route: oral) Med Classific ation: Cardiovas cular Therapy Agents Eliquis 2.5 mg tablet 11-18 00:00: 00 11-30 00:00 :00 No [id number] Per instruc tions Per instructio ns (route: oral) Med Classific ation: Hematolog ical Agents lisinopril 5 mg tablet 11-18 00:00: 00 11-30 00:00 :00 No [id number] Per instruc tions Per instructio ns (route: oral) Med Classific ation: Cardiovas cular Therapy Agents metformin 500 mg tablet 11-18 00:00: 00 11-30 00:00 :00 No [id number] Per instruc tions Per instructio ns (route: oral) Med Classific ation: Endocrine metoprolol succinate ER 50 mg tablet,exte nded release 24 hr 11-18 00:00: 00 11-30 00:00 :00 No [id number] Per instruc tions Per instructio ns (route: oral) Med Classific ation: Cardiovas cular Therapy Agents nifedipine ER 30 mg tablet,exte nded release 24 hr 11-18 00:00: 00 11-30 00:00 :00 No [id number] Per instruc tions Per instructio ns (route: oral) Med Classific ation: Cardiovas cular Therapy Agents pravastatin 10 mg tablet 11-18 00:00: 00 11-30 00:00 :00 No [id number] Per instruc tions Per instructio ns (route: oral) Med Classific ation: Cardiovas cular Therapy Agents docusate sodium 50 mg/5 mL oral liquid 11-30 00:00: 00 Yes [id number] CONSTIPATIO N 10 mL EVERY AM 10 mL EVERY AM (route: oral) Med Classific ation: Gastroint estinal Therapy Agents Levsin 0.125 mg tablet 11-30 00:00: 00 Yes [id number] TRACHEAL SECRETIONS 1 tablet EVERY 4 HOURS 1 tablet EVERY 4 HOURS (route: oral) Alternate Route: UNDER THE TONGUE. Med Classific ation: Gastroint estinal Therapy Agents lorazepam 2 mg/mL oral concentrate 11-30 00:00: 00 Yes [id number] ANXIETY RESTLESSNES S 0.5 mg EVERY 2 HOURS 0.5 mg EVERY 2 HOURS (route: oral) Alternate Route: UNDER THE TONGUE. Med Classific ation: Central Nervous System Agents morphine concentrate 100 mg/5 mL (20 mg/mL) oral solution 11-30 00:00: 00 Yes [id number] PAIN, DYSPNEA 5 mg HOURLY 5 mg HOURLY (route: oral) Alternate Route: UNDER THE TONGUE. Med Classific ation: Analgesic , Anti-infl ammatory or Antipyret ic Fleet Enema 19 gram-7 gram/118 mL 11-30 00:00: 00 Yes [id number] CONSTIPATIO N 118 mL DAILY 118 mL DAILY (route: rectal) Med Classific ation: Gastroint estinal Therapy Agents bisacodyl 10 mg rectal suppository 11-30 00:00: 00 Yes [id number] CONSTIPATIO N 1 supposi tory, rectal DAILY 1 suppositor y, rectal DAILY (route: rectal) Med Classific ation: Gastroint estinal Therapy Agents Milk of Magnesia 400 mg/5 mL oral suspension 11-30 00:00: 00 Yes [id number] CONSTIPATIO N 30 mL DAILY 30 mL DAILY (route: oral) Med Classific ation: Gastroint estinal Therapy Agents Vital Signs Vital Name Observation Time Observation Value Commen ts Temperature 2025-01-04 14:42:00.000 98 [degF] Temperature 2024-12-28 10:30:00.000 99.6 [degF] Temperature 2024-12-21 13:13:00.000 98.1 [degF] Temperature 2024-12-19 10:00:00.000 99.6 [degF] Temperature 2024-12-11 14:00:00.000 97.4 [degF] Temperature 2024-12-07 12:59:00.000 98.4 [degF] Temperature 2024-12-03 22:12:00.000 97.7 [degF] Temperature 2024-11-30 10:55:00.000 98.2 [degF] BMI (%) 2024-11-30 10:55:00.000 22 kg/m2 Height 2024-11-30 10:55:00.000 62 [in_us] Pulse 2025-01-04 14:42:00.000 94 /min Pulse 2024-12-28 10:30:00.000 83 /min Pulse 2024-12-21 13:13:00.000 70 /min Pulse 2024-12-19 10:00:00.000 95 /min Pulse 2024-12-11 14:00:00.000 73 /min Pulse 2024-12-07 12:59:00.000 90 /min Pulse 2024-12-03 22:12:00.000 90 /min Pulse 2024-11-30 10:55:00.000 74 /min O2 Saturation (%) 2024-12-28 10:30:00.000 99 % O2 Saturation (%) 2024-12-19 10:00:00.000 97 % O2 Saturation (%) 2024-11-30 10:55:00.000 93 % Respirations 2025-01-04 14:42:00.000 18 /min Respirations 2024-12-28 10:30:00.000 22 /min Respirations 2024-12-21 13:13:00.000 18 /min Respirations 2024-12-19 10:00:00.000 20 /min Respirations 2024-12-11 14:00:00.000 18 /min Respirations 2024-12-07 12:59:00.000 18 /min Respirations 2024-12-03 22:12:00.000 18 /min Respirations 2024-11-30 10:55:00.000 18 /min Weight (lbs) 2024-11-30 10:55:00.000 122 [lb_av] Systolic Blood Pressure 2025-01-04 14:42:00.000 114 mm [Hg] Systolic Blood Pressure 2024-12-28 10:30:00.000 111 mm [Hg] Systolic Blood Pressure 2024-12-21 13:13:00.000 126 mm [Hg] Systolic Blood Pressure 2024-12-19 10:00:00.000 125 mm [Hg] Systolic Blood Pressure 2024-12-11 14:00:00.000 110 mm [Hg] Systolic Blood Pressure 2024-12-07 12:59:00.000 126 mm [Hg] Systolic Blood Pressure 2024-12-03 22:12:00.000 102 mm [Hg] Systolic Blood Pressure 2024-11-30 10:55:00.000 116 mm [Hg] Diastolic Blood Pressure 2025-01-04 14:42:00.000 65 mm [Hg] Diastolic Blood Pressure 2024-12-28 10:30:00.000 [...] Planned Date Details Comments Future Scheduled Test COMMONWEALTH ATTORNEY TO EVALUATE PATIENT, DISEASE PROCESS, SYMPTOMS, AND OTHER CONDITIONS AND DEVELOP A NURSING PLAN OF CARE PART OF THE COMPREHENSIVE PLAN OF CARE DEVELOPMENT PROCESS. [code = COMMONWEALTH ATTORNEY TO EVALUATE PATIENT, DISEASE PROCESS, SYMPTOMS, AND OTHER CONDITIONS AND DEVELOP A NURSING PLAN OF CARE PART OF THE COMPREHENSIVE PLAN OF CARE DEVELOPMENT PROCESS.] Future Scheduled Test RN/PLANT WORKER/CH TO EVALUATE PT/CAREGIVER THOUGHTS REGARDING WHAT IS IMPORTANT/MEANINGFUL TO THEM TO IMPROVE QOL AND ENHANCE PATIENT EXPERIENCE WHILE ON HOSPICE SERVICES. [code = RN/PLANT WORKER/CH TO EVALUATE PT/CAREGIVER THOUGHTS REGARDING WHAT IS [...] PROVIDE SUPPORTIVE COUNSELING. REFER TO IDG MEMBER, PLANT WORKER, SPIRITUAL COUNSELOR, BEREAVEMENT FOR ADDITIONAL RESTAURANT DELIVERY DRIVER. [code = HOSPICE NURSE TO ASSESS FOR GRIEVING ISSUES/COMPLICATIONS AND PROVIDE SUPPORTIVE COUNSELING. REFER TO IDG MEMBER, PLANT WORKER, SPIRITUAL COUNSELOR, BEREAVEMENT FOR ADDITIONAL RESTAURANT DELIVERY DRIVER.] Future Scheduled Test HOSPICE NU RSE FOR [...] DEVELOP A PLAN OF CARE. [code = SKID ADZER TO EVALUATE SOCIAL, EMOTIONAL AND FINANCIAL FACTORS RELATED TO THE PATIENT'S ILLNESS, NEED FOR ADDITIONAL CARE/RESOURCES, ADJUSTMENT TO CARE AND DEVELOP A PLAN OF CARE.] Future Scheduled Test VENEER CLIPPER T O CONDUCT SPIRITUAL ASSESSMENT OF PATIENT/FAMILY/CAREGIVER AND DEVELOP A PLAN OF CARE. [code = VENEER CLIPPER TO CONDUCT SPIRITUAL ASSESSMENT OF PATIENT/FAMILY/CAREGIVER AND [...] HOSPICE SERVICE. Goal Provider Goal - A SKID ADZER PLAN OF CARE WILL BE ESTABLISHED. Goal Provider Goal - A VENEER CLIPPER PLAN OF CARE WILL BE ESTABLISHED. Goal [...] End Date/Time Encounter Type Admission Type Attending [facility] Care Department Encounter ID Discharge Date Discharge Status Discharge Condition Discharge Reason Percent Goals Met 2024-11-30 00:00:00 2025-02-27 00:00:00 Outpatient NEW ADMISSION [facility] [id number] 58.09
--- OUTSIDE RECORDS SUMMARY | 2025-01-07 06:27 | XMS_ITS | Clinical Summary ---
Author Organization Unknown Care Team Providers Care Chemical Etching Processor Name Role Phone BRANDAN CAZARES, SHWETHA Unavailable Unavailable HODA RN, SULEIMAN Unavailable Unavailable MARGI RN, ISRAEL Unavailable Unavailgrady WOOD RN, MANUEL Unavailable Unavailable VERONIKA INSOLE BOTTOM FILLER, TERRANCE Unavailable Un available JOSE L POCKET MACHINE OPERATOR, MISTI Unavailable Unavailable MERCEDES RN, ROXANA Unavailable Unavailgrady MCINTYRE RN, HOLLIE Unavailable Unavailable RICH RN, DEXTER Unavailable Unavailable DRISS RN, ANDREI Unavailable Unavailable MAN RN, AJAY Unavailable Unavailable DEXTER INSOLE BOTTOM FILLER, JARRELL Unavailable Unavailable NORMA POCKET MACHINE OPERATOR, MYAELA Unavailable Unavailable JACINTA POCKET MACHINE OPERATOR, CARMENZA Unavailable Unavailable TORI RN, MELINDA Unavailable [...] Unavailable JOSE CEDILLO, ISA Unavailable Unavailgrady GALLAGHER PLATER BARREL, JIGAR Unavailable Unavailable Payers Payer Name Policy Type Policy Number Effective Date Expira tion Date MEDICARE.NGS.HSP [id number] Problems Condition Name Condition Details Condition Category [...] 11-18 00:00: 00 11-30 00:00 :00 No [id number] Per instruc tions Per instructio ns (route: oral) Med Classific ation: Cardiovas cular Therapy Agents Eliquis 2.5 mg tablet 11-18 00:00: 00 11-30 00:00 :00 No [id number] Per instruc tions Per instructio ns (route: oral) Med Classific ation: Hematolog ical Agents lisinopril 5 mg tablet 11-18 00:00: 00 11-30 00:00 :00 No [id number] Per instruc tions Per instructio ns (route: oral) Med Classific ation: Cardiovas cular Therapy Agents metformin 500 mg tablet 11-18 00:00: 00 11-30 00:00 :00 No [id number] Per instruc tions Per instructio ns (route: oral) Med Classific ation: Endocrine metoprolol succinate ER 50 mg tablet,exte nded release 24 hr 11-18 00:00: 00 11-30 00:00 :00 No [id number] Per instruc tions Per instructio ns (route: oral) Med Classific ation: Cardiovas cular Therapy Agents nifedipine ER 30 mg tablet,exte nded release 24 hr 11-18 00:00: 00 11-30 00:00 :00 No [id number] Per instruc tions Per instructio ns (route: oral) Med Classific ation: Cardiovas cular Therapy Agents pravastatin 10 mg tablet 11-18 00:00: 00 11-30 00:00 :00 No [id number] Per instruc tions Per instructio ns (route: oral) Med Classific ation: Cardiovas cular Therapy Agents docusate sodium 50 mg/5 mL oral liquid 11-30 00:00: 00 Yes [id number] CONSTIPATIO N 10 mL EVERY AM 10 mL EVERY AM (route: oral) Med Classific ation: Gastroint estinal Therapy Agents Levsin 0.125 mg tablet 11-30 00:00: 00 Yes [id number] TRACHEAL SECRETIONS 1 tablet EVERY 4 HOURS 1 tablet EVERY 4 HOURS (route: oral) Alternate Route: UNDER THE TONGUE. Med Classific ation: Gastroint estinal Therapy Agents lorazepam 2 mg/mL oral concentrate 11-30 00:00: 00 Yes [id number] ANXIETY RESTLESSNES S 0.5 mg EVERY 2 HOURS 0.5 mg EVERY 2 HOURS (route: oral) Alternate Route: UNDER THE TONGUE. Med Classific ation: Central Nervous System Agents morphine concentrate 100 mg/5 mL (20 mg/mL) oral solution 11-30 00:00: 00 Yes [id number] PAIN, DYSPNEA 5 mg HOURLY 5 mg HOURLY (route: oral) Alternate Route: UNDER THE TONGUE. Med Classific ation: Analgesic , Anti-infl ammatory or Antipyret ic Fleet Enema 19 gram-7 gram/118 mL 11-30 00:00: 00 Yes [id number] CONSTIPATIO N 118 mL DAILY 118 mL DAILY (route: rectal) Med Classific ation: Gastroint estinal Therapy Agents bisacodyl 10 mg rectal suppository 11-30 00:00: 00 Yes [id number] CONSTIPATIO N 1 supposi tory, rectal DAILY 1 suppositor y, rectal DAILY (route: rectal) Med Classific ation: Gastroint estinal Therapy Agents Milk of Magnesia 400 mg/5 mL oral suspension 11-30 00:00: 00 Yes [id number] CONSTIPATIO N 30 mL DAILY 30 mL [...] Planned Date Details Comments Future Scheduled Test WATCHER LOOKOUT TOWER TO EVALUATE PATIENT, DISEASE PROCESS, SYMPTOMS, AND OTHER CONDITIONS AND DEVELOP A NURSING PLAN OF CARE PART OF THE COMPREHENSIVE PLAN OF CARE DEVELOPMENT PROCESS. [code = WATCHER LOOKOUT TOWER TO EVALUATE PATIENT, DISEASE PROCESS, SYMPTOMS, AND OTHER CONDITIONS AND DEVELOP A NURSING PLAN OF CARE PART OF THE COMPREHENSIVE PLAN OF CARE DEVELOPMENT PROCESS.] Future Scheduled Test RN/PLATER BARREL/CH TO EVALUATE PT/CAREGIVER THOUGHTS REGARDING WHAT IS IMPORTANT/MEANINGFUL TO THEM TO IMPROVE QOL AND ENHANCE PATIENT EXPERIENCE WHILE ON HOSPICE SERVICES. [code = RN/PLATER BARREL/CH TO EVALUATE PT/CAREGIVER THOUGHTS REGARDING WHAT IS [...] PROVIDE SUPPORTIVE COUNSELING. REFER TO IDG MEMBER, PLATER BARREL, SPIRITUAL COUNSELOR, BEREAVEMENT FOR ADDITIONAL BODY TECHNICIAN/PAINTER. [code = HOSPICE NURSE TO ASSESS FOR GRIEVING ISSUES/COMPLICATIONS AND PROVIDE SUPPORTIVE COUNSELING. REFER TO IDG MEMBER, PLATER BARREL, SPIRITUAL COUNSELOR, BEREAVEMENT FOR ADDITIONAL BODY TECHNICIAN/PAINTER.] Future Scheduled Test HOSPICE NU RSE FOR [...] DEVELOP A PLAN OF CARE. [code = LINSEED CAKE TRIMMER TO EVALUATE SOCIAL, EMOTIONAL AND FINANCIAL FACTORS RELATED TO THE PATIENT'S ILLNESS, NEED FOR ADDITIONAL CARE/RESOURCES, ADJUSTMENT TO CARE AND DEVELOP A PLAN OF CARE.] Future Scheduled Test REAL ESTATE RENTAL AGENT T O CONDUCT SPIRITUAL ASSESSMENT OF PATIENT/FAMILY/CAREGIVER AND DEVELOP A PLAN OF CARE. [code = REAL ESTATE RENTAL AGENT TO CONDUCT SPIRITUAL ASSESSMENT OF PATIENT/FAMILY/CAREGIVER AND [...] HOSPICE SERVICE. Goal Provider Goal - A LINSEED CAKE TRIMMER PLAN OF CARE WILL BE ESTABLISHED. Goal Provider Goal - A REAL ESTATE RENTAL AGENT PLAN OF CARE WILL BE ESTABLISHED. Goal [...] End Date/Time Encounter Type Admission Type Attending [facility] Care Department Encounter ID Discharge Date Discharge Status Discharge Condition Discharge Reason Percent Goals Met 2024-11-30 00:00:00 2025-02-27 00:00:00 Outpatient NEW ADMISSION [facility] [id number] 58.09
[2025-01-07 06:48] LABS: Basophils Absolute Auto 0.1 X10*3/uL (0.0-0.2); Basophils Percent Auto 0.9 % (0-2); Eosinophils Absolute Auto 0.4 X10*3/uL (0.0-0.4); Eosinophils Percent Auto 4.4 % (0-4); Hematocrit 39.4 % (37.0-47.0); Hemoglobin 12.7 g/dl (12.0-16.0); Imm Gran Abs Auto 0.03 X10*3/uL (0.00-0.03); Imm Gran Pct Auto 0.3 % (0.0-0.4); Lymphocytes Absolute Auto 1.7 X10*3/uL (1.2-4.9); Mean Corpuscular HGB Conc 32.2 g/dl (31.0-35.0); Mean Corpuscular Hemoglobin 28.1 pg (27.0-33.0); Mean Corpuscular Volume 87.2 fL (80.0-98.0); Mean Platelet Volume 9.6 fL (9.4-12.3); Monocytes Absolute Auto 0.8 X10*3/uL (0.1-1.2); Monocytes Percent Auto 8.3 % (2-11); Neutrophils Absolute Auto 6.2 x10*3/uL (2.0-8.3); Neutrophils Percent Auto 68.1 % (45-73); Platelet Count 211 X10*3/uL (160-400); Red Blood Count 4.52 X10*6/uL (4.20-5.50); Red Cell Distribution Width 17.2 % (11.0-16.0); White Blood Count 9.2 X10*3/uL (4.8-10.8)
[2025-01-07 07:20] LABS: Anion Gap 13 (12-20); Blood Urea Nitrogen 17 mg/dL (9-16); Calcium 9.6 mg/dL (8.4-10.2); Carbon Dioxide 24 mmol/L (22-29); Chloride 103 mmol/L (96-108); Estimated Glomerular Filt Rate > 60; Glucose Random 87 mg/dL (60-115); Potassium 4.2 mmol/L (3.3-5.1); Sodium 136 mmol/L (135-145)
== END 2025-01-07 06:19 | disposition home or self-care (01) ==
LOC: HO.MMNH2L 06:18
PROVIDERS: Visit Provider Student in an Organized Health Care Education/Training Program
DX: J96.01 Acute respiratory failure with hypoxia (principal); J69.0 Pneumonitis due to inhalation of food and vomit
CPT/HCPCS: 36415; 80048; 85025

== ENCOUNTER 2025-01-14 07:06 | Outpatient (REF) | payer MEDICARE, SELFPAY ==
[2025-01-14 06:20] LABS: MANUAL DIFF FLAG NO
--- OUTSIDE RECORDS SUMMARY | 2025-01-14 07:10 | XMS_ITS | Clinical Summary ---
Author Organization Unknown Care Team Providers Care Manager Customer Name Role Phone BRANDAN CAZARES, SHWETHA Unavailable Unavailable HODA RN, SULEIMAN Unavailable Unavailable MARGI RN, ISRAEL Unavailable Unavailgrady WOOD RN, MANUEL Unavailable Unavailable VERONIKA LAW FIRM RECEPTIONIST, TERRANCE Unavailable Un available JOSE L DIRECTOR INSTITUTION, MISTI Unavailable Unavailable MERCEDES RN, ROXANA Unavailable Unavailgrady MCINTYRE RN, HOLLIE Unavailable Unavailable RICH RN, DEXTER Unavailable Unavailable DRISS RN, ANDREI Unavailable Unavailable MAN RN, AJAY Unavailable Unavailable DEXTER LAW FIRM RECEPTIONIST, JARRELL Unavailable Unavailable NORMA DIRECTOR INSTITUTION, MAYELA Unavailable Unavailable JACINTA DIRECTOR INSTITUTION, CARMENZA Unavailable Unavailable TORI RN, MELINDA Unavailable Unavailable RILEY RN, SHOBHA Unavailable Unavailab kamille HAMILTON RN, KIAN Unavailable Unavailable RADHA RN, ELIZABET Unavailable Unavailable CHITO RN, MAYLEA Unavailable Unavailable PEREZ RN, SASCHA Unavailable Unavailable MALA RN, NIDA Unavailable Unavailable CLARK FERNÁNDEZ, BLAYNE Unavailable Unavailable ZARA RN, SASCHA Unavailable Unavailable RED RN, ADELA Unavailable Unavailable NITIN RN, ECHO Unavailable Unavailable CURET CH, JAGUAR Unavailable Unavailable JAVIER ESCOBEDO, NORA Unavailable Unavailable JOSE CEDILLO, ISA Unavailable Unavailgrady GALLAGHER AIR ROUTE TRAFFIC CONTROLLER, JIGAR Unavailable Unavailable Payers Payer Name Policy Type Policy Number Effective Date Expira tion Date MEDICARE.NGS.HSP [id number] Problems Condition Name Condition Details Condition Category [...] 11-18 00:00: 00 11-30 00:00 :00 No [id number] Per instruc tions Per instructio ns (route: oral) Med Classific ation: Cardiovas cular Therapy Agents Eliquis 2.5 mg tablet 11-18 00:00: 00 11-30 00:00 :00 No [id number] Per instruc tions Per instructio ns (route: oral) Med Classific ation: Hematolog ical Agents lisinopril 5 mg tablet 11-18 00:00: 00 11-30 00:00 :00 No [id number] Per instruc tions Per instructio ns (route: oral) Med Classific ation: Cardiovas cular Therapy Agents metformin 500 mg tablet 11-18 00:00: 00 11-30 00:00 :00 No [id number] Per instruc tions Per instructio ns (route: oral) Med Classific ation: Endocrine metoprolol succinate ER 50 mg tablet,exte nded release 24 hr 11-18 00:00: 00 11-30 00:00 :00 No [id number] Per instruc tions Per instructio ns (route: oral) Med Classific ation: Cardiovas cular Therapy Agents nifedipine ER 30 mg tablet,exte nded release 24 hr 11-18 00:00: 00 11-30 00:00 :00 No [id number] Per instruc tions Per instructio ns (route: oral) Med Classific ation: Cardiovas cular Therapy Agents pravastatin 10 mg tablet 11-18 00:00: 00 11-30 00:00 :00 No [id number] Per instruc tions Per instructio ns (route: oral) Med Classific ation: Cardiovas cular Therapy Agents docusate sodium 50 mg/5 mL oral liquid 11-30 00:00: 00 Yes [id number] CONSTIPATIO N 10 mL EVERY AM 10 mL EVERY AM (route: oral) Med Classific ation: Gastroint estinal Therapy Agents Levsin 0.125 mg tablet 11-30 00:00: 00 Yes [id number] TRACHEAL SECRETIONS 1 tablet EVERY 4 HOURS 1 tablet EVERY 4 HOURS (route: oral) Alternate Route: UNDER THE TONGUE. Med Classific ation: Gastroint estinal Therapy Agents lorazepam 2 mg/mL oral concentrate 11-30 00:00: 00 Yes [id number] ANXIETY RESTLESSNES S 0.5 mg EVERY 2 HOURS 0.5 mg EVERY 2 HOURS (route: oral) Alternate Route: UNDER THE TONGUE. Med Classific ation: Central Nervous System Agents morphine concentrate 100 mg/5 mL (20 mg/mL) oral solution 11-30 00:00: 00 Yes [id number] PAIN, DYSPNEA 5 mg HOURLY 5 mg HOURLY (route: oral) Alternate Route: UNDER THE TONGUE. Med Classific ation: Analgesic , Anti-infl ammatory or Antipyret ic Fleet Enema 19 gram-7 gram/118 mL 11-30 00:00: 00 Yes [id number] CONSTIPATIO N 118 mL DAILY 118 mL DAILY (route: rectal) Med Classific ation: Gastroint estinal Therapy Agents bisacodyl 10 mg rectal suppository 11-30 00:00: 00 Yes [id number] CONSTIPATIO N 1 supposi tory, rectal DAILY 1 suppositor y, rectal DAILY (route: rectal) Med Classific ation: Gastroint estinal Therapy Agents Milk of Magnesia 400 mg/5 mL oral suspension 11-30 00:00: 00 Yes [id number] CONSTIPATIO N 30 mL DAILY 30 mL DAILY (route: oral) Med Classific ation: Gastroint estinal Therapy Agents Vital Signs Vital Name Observation Time Observation Value Commen ts Temperature 2025-01-10 15:08:00.000 98.7 [degF] Temperature 2025-01-04 14:42:00.000 98 [degF] Temperature 2024-12-28 10:30:00.000 99.6 [degF] Temperature 2024-12-21 13:13:00.000 98.1 [degF] Temperature 2024-12-19 10:00:00.000 99.6 [degF] Temperature 2024-12-11 14:00:00.000 97.4 [degF] Temperature 2024-12-07 12:59:00.000 98.4 [degF] Temperature 2024-12-03 22:12:00.000 97.7 [degF] Temperature 2024-11-30 10:55:00.000 98.2 [degF] BMI (%) 2024-11-30 10:55:00.000 22 kg/m2 Height 2024-11-30 10:55:00.000 62 [in_us] Pulse 2025-01-10 15:08:00.000 127 /min Pulse 2025-01-04 14:42:00.000 94 /min Pulse 2024-12-28 10:30:00.000 83 /min Pulse 2024-12-21 13:13:00.000 70 /min Pulse 2024-12-19 10:00:00.000 95 /min Pulse 2024-12-11 14:00:00.000 73 /min Pulse 2024-12-07 12:59:00.000 90 /min Pulse 2024-12-03 22:12:00.000 90 /min Pulse 2024-11-30 10:55:00.000 74 /min O2 Saturation (%) 2025-01-10 15:08:00.000 92 % O2 Saturation (%) 2024-12-28 10:30:00.000 99 % O2 Saturation (%) 2024-12-19 10:00:00.000 97 % O2 Saturation (%) 2024-11-30 10:55:00.000 93 % Respirations 2025-01-10 15:08:00.000 18 /min Respirations 2025-01-04 14:42:00.000 18 /min Respirations 2024-12-28 10:30:00.000 22 /min Respirations 2024-12-21 13:13:00.000 18 /min Respirations 2024-12-19 10:00:00.000 20 /min Respirations 2024-12-11 14:00:00.000 18 /min Respirations 2024-12-07 12:59:00.000 18 /min Respirations 2024-12-03 22:12:00.000 18 /min Respirations 2024-11-30 10:55:00.000 18 /min Weight (lbs) 2024-11-30 10:55:00.000 122 [lb_av] Systolic Blood Pressure 2025-01-10 15:08:00.000 144 mm [Hg] Systolic Blood Pressure 2025-01-04 14:42:00.000 114 mm [...] 10:55:00.000 116 mm [Hg] Diastolic Blood Pressure 2025-01-10 15:08:00.000 97 mm [Hg] Diastolic Blood Pressure 2025-01-04 14:42:00.000 [...] Planned Date Details Comments Future Scheduled Test ED EDUCATIONAL AIDE TO EVALUATE PATIENT, DISEASE PROCESS, SYMPTOMS, AND OTHER CONDITIONS AND DEVELOP A NURSING PLAN OF CARE PART OF THE COMPREHENSIVE PLAN OF CARE DEVELOPMENT PROCESS. [code = ED EDUCATIONAL AIDE TO EVALUATE PATIENT, DISEASE PROCESS, SYMPTOMS, AND OTHER CONDITIONS AND DEVELOP A NURSING PLAN OF CARE PART OF THE COMPREHENSIVE PLAN OF CARE DEVELOPMENT PROCESS.] Future Scheduled Test RN/AIR ROUTE TRAFFIC CONTROLLER/CH TO EVALUATE PT/CAREGIVER THOUGHTS REGARDING WHAT IS IMPORTANT/MEANINGFUL TO THEM TO IMPROVE QOL AND ENHANCE PATIENT EXPERIENCE WHILE ON HOSPICE SERVICES. [code = RN/AIR ROUTE TRAFFIC CONTROLLER/CH TO EVALUATE PT/CAREGIVER THOUGHTS REGARDING WHAT IS [...] SUPPORTIVE COUNSELING. REFER TO IDG MEMBER, AIR ROUTE TRAFFIC CONTROLLER, SPIRITUAL COUNSELOR, BEREAVEMENT FOR ADDITIONAL DIRECTOR BUSINESS DEVELOPMENT. [code = HOSPICE NURSE TO ASSESS FOR GRIEVING ISSUES/COMPLICATIONS AND PROVIDE SUPPORTIVE COUNSELING. REFER TO IDG MEMBER, AIR ROUTE TRAFFIC CONTROLLER, SPIRITUAL COUNSELOR, BEREAVEMENT FOR ADDITIONAL DIRECTOR BUSINESS DEVELOPMENT.] Future Scheduled Test HOSPICE NU RSE FOR [...] DEVELOP A PLAN OF CARE. [code = TEACHER KINDERGARTEN TO EVALUATE SOCIAL, EMOTIONAL AND FINANCIAL FACTORS RELATED TO THE PATIENT'S ILLNESS, NEED FOR ADDITIONAL CARE/RESOURCES, ADJUSTMENT TO CARE AND DEVELOP A PLAN OF CARE.] Future Scheduled Test AUTO PORTER T O CONDUCT SPIRITUAL ASSESSMENT OF PATIENT/FAMILY/CAREGIVER AND DEVELOP A PLAN OF CARE. [code = AUTO PORTER TO CONDUCT SPIRITUAL ASSESSMENT OF PATIENT/FAMILY/CAREGIVER AND [...] HOSPICE SERVICE. Goal Provider Goal - A TEACHER KINDERGARTEN PLAN OF CARE WILL BE ESTABLISHED. Goal Provider Goal - A AUTO PORTER PLAN OF CARE WILL BE ESTABLISHED. Goal [...] End Date/Time Encounter Type Admission Type Attending [facility] Care Facility Care Department Encounter ID Discharge Date Discharge Status Discharge Condition Discharge Reason Percent Goals Met 2024-11-30 00:00:00 2025-02-27 00:00:00 Outpatient NEW ADMISSION ECHO [facility] [id number] 55.88
--- OUTSIDE RECORDS SUMMARY | 2025-01-14 07:10 | XMS_ITS | Clinical Summary ---
Author Organization Unknown Care Team Providers Care Carpenter Rough Name Role Phone BRANDAN CAZARES, SHWETHA Unavailable Unavailable HODA RN, SULEIMAN Unavailable Unavailable MARGI RN, ISRAEL Unavailable Unavailgrady WOOD RN, MANUEL Unavailable Unavailable VERONIKA SENIOR PRIVATE CLIENT ADVISOR, TERRANCE Unavailable Un available JOSE L SUPERVISOR INSTRUMENT MECHANICS, MISTI Unavailable Unavailable MERCEDES RN, ROXANA Unavailable Unavailgrady MCINTYRE RN, HOLLIE Unavailable Unavailable RICH RN, DEXTER Unavailable Unavailable DRISS RN, ANDREI Unavailable Unavailable MAN RN, AJAY Unavailable Unavailable DEXTER SENIOR PRIVATE CLIENT ADVISOR, JARRELL Unavailable Unavailable NORMA SUPERVISOR INSTRUMENT MECHANICS, MAYELA Unavailable Unavailable JCAINTA SUPERVISOR INSTRUMENT MECHANICS, CARMENZA Unavailable Unavailable TORI RN, MELINDA Unavailable [...] Unavailable JOSE CEDILLO, ISA Unavailable Unavailgrady GALLAGHER PICKING BELT OPERATOR, JIGAR Unavailable Unavailable Payers Payer Name Policy Type Policy Number Effective Date Expira tion Date MEDICARE.NGS.HSP [id number] Problems Condition Name Condition Details Condition Category [...] 11-18 00:00: 00 11-30 00:00 :00 No [id number] Per instruc tions Per instructio ns (route: oral) Med Classific ation: Cardiovas cular Therapy Agents Eliquis 2.5 mg tablet 11-18 00:00: 00 11-30 00:00 :00 No [id number] Per instruc tions Per instructio ns (route: oral) Med Classific ation: Hematolog ical Agents lisinopril 5 mg tablet 11-18 00:00: 00 11-30 00:00 :00 No [id number] Per instruc tions Per instructio ns (route: oral) Med Classific ation: Cardiovas cular Therapy Agents metformin 500 mg tablet 11-18 00:00: 00 11-30 00:00 :00 No [id number] Per instruc tions Per instructio ns (route: oral) Med Classific ation: Endocrine metoprolol succinate ER 50 mg tablet,exte nded release 24 hr 11-18 00:00: 00 11-30 00:00 :00 No [id number] Per instruc tions Per instructio ns (route: oral) Med Classific ation: Cardiovas cular Therapy Agents nifedipine ER 30 mg tablet,exte nded release 24 hr 11-18 00:00: 00 11-30 00:00 :00 No [id number] Per instruc tions Per instructio ns (route: oral) Med Classific ation: Cardiovas cular Therapy Agents pravastatin 10 mg tablet 11-18 00:00: 00 11-30 00:00 :00 No [id number] Per instruc tions Per instructio ns (route: oral) Med Classific ation: Cardiovas cular Therapy Agents docusate sodium 50 mg/5 mL oral liquid 11-30 00:00: 00 Yes [id number] CONSTIPATIO N 10 mL EVERY AM 10 mL EVERY AM (route: oral) Med Classific ation: Gastroint estinal Therapy Agents Levsin 0.125 mg tablet 11-30 00:00: 00 Yes [id number] TRACHEAL SECRETIONS 1 tablet EVERY 4 HOURS 1 tablet EVERY 4 HOURS (route: oral) Alternate Route: UNDER THE TONGUE. Med Classific ation: Gastroint estinal Therapy Agents lorazepam 2 mg/mL oral concentrate 11-30 00:00: 00 Yes [id number] ANXIETY RESTLESSNES S 0.5 mg EVERY 2 HOURS 0.5 mg EVERY 2 HOURS (route: oral) Alternate Route: UNDER THE TONGUE. Med Classific ation: Central Nervous System Agents morphine concentrate 100 mg/5 mL (20 mg/mL) oral solution 11-30 00:00: 00 Yes [id number] PAIN, DYSPNEA 5 mg HOURLY 5 mg HOURLY (route: oral) Alternate Route: UNDER THE TONGUE. Med Classific ation: Analgesic , Anti-infl ammatory or Antipyret ic Fleet Enema 19 gram-7 gram/118 mL 11-30 00:00: 00 Yes [id number] CONSTIPATIO N 118 mL DAILY 118 mL DAILY (route: rectal) Med Classific ation: Gastroint estinal Therapy Agents bisacodyl 10 mg rectal suppository 11-30 00:00: 00 Yes [id number] CONSTIPATIO N 1 supposi tory, rectal DAILY 1 suppositor y, rectal DAILY (route: rectal) Med Classific ation: Gastroint estinal Therapy Agents Milk of Magnesia 400 mg/5 mL oral suspension 11-30 00:00: 00 Yes [id number] CONSTIPATIO N 30 mL DAILY 30 mL [...] Planned Date Details Comments Future Scheduled Test LADLE PATCHER TO EVALUATE PATIENT, DISEASE PROCESS, SYMPTOMS, AND OTHER CONDITIONS AND DEVELOP A NURSING PLAN OF CARE PART OF THE COMPREHENSIVE PLAN OF CARE DEVELOPMENT PROCESS. [code = LADLE PATCHER TO EVALUATE PATIENT, DISEASE PROCESS, SYMPTOMS, AND OTHER CONDITIONS AND DEVELOP A NURSING PLAN OF CARE PART OF THE COMPREHENSIVE PLAN OF CARE DEVELOPMENT PROCESS.] Future Scheduled Test RN/PICKING BELT OPERATOR/CH TO EVALUATE PT/CAREGIVER THOUGHTS REGARDING WHAT IS IMPORTANT/MEANINGFUL TO THEM TO IMPROVE QOL AND ENHANCE PATIENT EXPERIENCE WHILE ON HOSPICE SERVICES. [code = RN/PICKING BELT OPERATOR/CH TO EVALUATE PT/CAREGIVER THOUGHTS REGARDING WHAT [...] PROVIDE SUPPORTIVE COUNSELING. REFER TO IDG MEMBER, PICKING BELT OPERATOR, SPIRITUAL COUNSELOR, BEREAVEMENT FOR ADDITIONAL LEARNING SUPPORT SPECIALIST. [code = HOSPICE NURSE TO ASSESS FOR GRIEVING ISSUES/COMPLICATIONS AND PROVIDE SUPPORTIVE COUNSELING. REFER TO IDG MEMBER, PICKING BELT OPERATOR, SPIRITUAL COUNSELOR, BEREAVEMENT FOR ADDITIONAL LEARNING SUPPORT SPECIALIST.] Future Scheduled Test HOSPICE NU RSE [...] DEVELOP A PLAN OF CARE. [code = POLICE COMMANDING OFFICER TO EVALUATE SOCIAL, EMOTIONAL AND FINANCIAL FACTORS RELATED TO THE PATIENT'S ILLNESS, NEED FOR ADDITIONAL CARE/RESOURCES, ADJUSTMENT TO CARE AND DEVELOP A PLAN OF CARE.] Future Scheduled Test BATTERY INSTALLER T O CONDUCT SPIRITUAL ASSESSMENT OF PATIENT/FAMILY/CAREGIVER AND DEVELOP A PLAN OF CARE. [code = BATTERY INSTALLER TO CONDUCT SPIRITUAL ASSESSMENT OF PATIENT/FAMILY/CAREGIVER AND [...] HOSPICE SERVICE. Goal Provider Goal - A POLICE COMMANDING OFFICER PLAN OF CARE WILL BE ESTABLISHED. Goal Provider Goal - A BATTERY INSTALLER PLAN OF CARE WILL BE ESTABLISHED. Goal [...] End Date/Time Encounter Type Admission Type Attending [facility] Care Facility Care Department Encounter ID Discharge Date Discharge Status Discharge Condition Discharge Reason Percent Goals Met 2024-11-30 00:00:00 2025-02-27 00:00:00 Outpatient NEW ADMISSION [facility]CHO [facility] [id number] 55.88
[2025-01-14 07:24] LABS: Basophils Percent Auto 0.4 % (0-2); Eosinophils Absolute Auto 0.3 X10*3/uL (0.0-0.4); Eosinophils Percent Auto 3.8 % (0-4); Hematocrit 37.7 % (37.0-47.0); Hemoglobin 12.4 g/dl (12.0-16.0); Imm Gran Abs Auto 0.03 X10*3/uL (0.00-0.03); Imm Gran Pct Auto 0.4 % (0.0-0.4); Lymphocytes Absolute Auto 1.7 X10*3/uL (1.2-4.9); Lymphocytes Percent Auto 21.1 % (20-40); Mean Corpuscular HGB Conc 32.9 g/dl (31.0-35.0); Mean Corpuscular Hemoglobin 28.4 pg (27.0-33.0); Mean Corpuscular Volume 86.5 fL (80.0-98.0); Mean Platelet Volume 9.5 fL (9.4-12.3); Monocytes Absolute Auto 0.7 X10*3/uL (0.1-1.2); Monocytes Percent Auto 9.2 % (2-11); Neutrophils Absolute Auto 5.1 x10*3/uL (2.0-8.3); Neutrophils Percent Auto 65.1 % (45-73); Platelet Count 205 X10*3/uL (160-400); Red Blood Count 4.36 X10*6/uL (4.20-5.50); Red Cell Distribution Width 16.7 % (11.0-16.0); White Blood Count 7.9 X10*3/uL (4.8-10.8)
[2025-01-14 07:36] LABS: Anion Gap 13 (12-20); Blood Urea Nitrogen 16 mg/dL (9-16); Carbon Dioxide 24 mmol/L (22-29); Chloride 104 mmol/L (96-108); Estimated Glomerular Filt Rate > 60; Glucose Random 99 mg/dL (60-115); Potassium 4.1 mmol/L (3.3-5.1); Sodium 137 mmol/L (135-145)
== END 2025-01-14 07:07 | disposition home or self-care (01) ==
LOC: HO.MMNH2L 07:06
PROVIDERS: Visit Provider Student in an Organized Health Care Education/Training Program
DX: J96.01 Acute respiratory failure with hypoxia (principal); J69.0 Pneumonitis due to inhalation of food and vomit
CPT/HCPCS: 36415; 80048; 85025

== ENCOUNTER 2025-01-21 05:39 | Outpatient (REF) | payer MEDICARE, SELFPAY ==
[2025-01-21 05:37] LABS: MANUAL DIFF FLAG NO
[2025-01-21 06:31] LABS: Anion Gap 15 (12-20); Blood Urea Nitrogen 17 mg/dL (9-16); Calcium 9.1 mg/dL (8.4-10.2); Carbon Dioxide 22 mmol/L (22-29); Chloride 104 mmol/L (96-108); Estimated Glomerular Filt Rate 58; Glucose Random 93 mg/dL (60-115); Potassium 4.1 mmol/L (3.3-5.1); Sodium 137 mmol/L (135-145)
[2025-01-21 06:40] LABS: Basophils Absolute Auto 0.1 X10*3/uL (0.0-0.2); Basophils Percent Auto 0.7 % (0-2); Eosinophils Absolute Auto 0.3 X10*3/uL (0.0-0.4); Eosinophils Percent Auto 3.7 % (0-4); Hematocrit 38.5 % (37.0-47.0); Hemoglobin 12.2 g/dl (12.0-16.0); Imm Gran Abs Auto 0.07 X10*3/uL (0.00-0.03); Imm Gran Pct Auto 0.8 % (0.0-0.4); Lymphocytes Absolute Auto 1.8 X10*3/uL (1.2-4.9); Lymphocytes Percent Auto 19.1 % (20-40); Mean Corpuscular HGB Conc 31.7 g/dl (31.0-35.0); Mean Corpuscular Hemoglobin 27.9 pg (27.0-33.0); Mean Corpuscular Volume 88.1 fL (80.0-98.0); Mean Platelet Volume 9.9 fL (9.4-12.3); Monocytes Absolute Auto 0.9 X10*3/uL (0.1-1.2); Monocytes Percent Auto 9.7 % (2-11); Platelet Count 248 X10*3/uL (160-400); Red Blood Count 4.37 X10*6/uL (4.20-5.50); White Blood Count 9.2 X10*3/uL (4.8-10.8)
== END 2025-01-21 05:40 | disposition home or self-care (01) ==
LOC: HO.MMNH2L 05:39
PROVIDERS: Visit Provider Student in an Organized Health Care Education/Training Program
DX: J96.01 Acute respiratory failure with hypoxia (principal); J69.0 Pneumonitis due to inhalation of food and vomit
CPT/HCPCS: 36415; 80048; 85025

== ENCOUNTER 2025-08-21 18:47 | Outpatient (REF) | payer MEDICARE, SELFPAY ==
[2025-08-22 09:19] LABS: Chlamydia pneumoniae PCR Not Detected (Not Detect.); Coronavirus 229E PCR Not Detected (Not Detect.); Coronavirus HKU1 PCR Not Detected (Not Detect.); Coronavirus NL63 PCR Not Detected (Not Detect.); Coronavirus OC43 PCR Not Detected (Not Detect.); RSV PCR Not Detected (Not Detect.); Rhino/Enterovirus PCR Not Detected (Not Detect.)
[2025-08-22 09:36] LABS: Influenza A H1 PCR Not Detected (Not Detect.); Influenza A H1-2009 PCR Not Detected (Not Detect.); Influenza A H3 PCR Not Detected (Not Detect.); SARS-CoV-2 PCR Not Detected (Not Detect.)
--- OUTSIDE RECORDS SUMMARY | 2025-09-24 20:00 | XMS_ITS | Clinical Summary ---
Author Organization Unknown Care Team Providers Care Marketing Operations Analyst Name Role Phone BRANDAN CAZARES, SHWETHA Unavailable Unavailable DIANEN RN, CHRISTOPHER Unavailable Unavailable FRANCISCO JAVIER RN, HOLLIE Unavailable Unavailable RADHA RN, ELIZABET Unavailable Unavailable RN, AUDI Unavailable Unavailable MERCEDES RN, ROXANA Unavailable Unavailgrady WOOD RN, MANUEL Unavailable Unavailable JOY RN, KIAN Unavailable Unavailable CURET CH, JAGUAR Unavailable Unavailable CHITO RN, MAYELA Unavailable Unavailable TORI RN, MELINDA Unavailable Unavailable MARGI RN, ISRAEL Unavailable Unavailgrady WORKMAN ICE HOUSE SUPERVISOR, CARMENZA Unavailable Unavailable RICH RN, DEXTER Unavailable Unavailable HODA RN, SULEIMAN Unavailable Unavailable MAN RN, AJAY Unavailable Unavailable MALA TILLMAN, NIDA Unavailable Unavailable JOSE CEDILLO, ISA Unavailable Unavailgrady RODAS LPN, BLAYNE Unavailable Unavailable PRIAURE CH, NORA Unavailable Unavailable PEREZ RN, SASCHA Unavailable Unavailable NITIN RN, ECHO Unavailable Unavailable GERARDO TILLMAN, CATY Unavailable Unavailable KAYLEIGH RN, FEBRUARY Unavailable Unavailable TU RN, BRANDYN Unavailable Unavailable NEVIN CEDILLO, BERNY Unavailable Unavailable MECHE RN, VIKRAM Unavailable Unavailable Payers Payer Name Policy Type Policy Number Effective Date Expira tion Date MEDICARE.NGS.HSP [id number] Problems Condition Name Condition Details Condition Category Status Onset Date Resolution Date Last Treatment Date Treating Clinician Comments 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-30 00:00: 00 HEMIPLGA FOL UNSP CEREBVASC DISEASE [...] 11-18 00:00: 00 11-30 00:00 :00 No [id number] Per instruc tions Per instructio ns (route: oral) Med Classific ation: Cardiovas cular Therapy Agents Eliquis 2.5 mg tablet 11-18 00:00: 00 11-30 00:00 :00 No [id number] Per instruc tions Per instructio ns (route: oral) Med Classific ation: Hematolog ical Agents lisinopril 5 mg tablet 11-18 00:00: 00 11-30 00:00 :00 No [id number] Per instruc tions Per instructio ns (route: oral) Med Classific ation: Cardiovas cular Therapy Agents metformin 500 mg tablet 11-18 00:00: 00 11-30 00:00 :00 No [id number] Per instruc tions Per instructio ns (route: oral) Med Classific ation: Endocrine metoprolol succinate ER 50 mg tablet,exte nded release 24 hr 11-18 00:00: 00 11-30 00:00 :00 No [id number] Per instruc tions Per instructio ns (route: oral) Med Classific ation: Cardiovas cular Therapy Agents nifedipine ER 30 mg tablet,exte nded release 24 hr 11-18 00:00: 00 11-30 00:00 :00 No [id number] Per instruc tions Per instructio ns (route: oral) Med Classific ation: Cardiovas cular Therapy Agents pravastatin 10 mg tablet 11-18 00:00: 00 11-30 00:00 :00 No [id number] Per instruc tions Per instructio ns (route: oral) Med Classific ation: Cardiovas cular Therapy Agents docusate sodium 50 mg/5 mL oral liquid 11-30 00:00: 00 Yes [id number] CONSTIPATIO N 10 mL EVERY AM 10 mL EVERY AM (route: oral) Med Classific ation: Gastroint estinal Therapy Agents Levsin 0.125 mg tablet 11-30 00:00: 00 Yes [id number] TRACHEAL SECRETIONS 1 tablet EVERY 4 HOURS 1 tablet EVERY 4 HOURS (route: oral) Alternate Route: UNDER THE TONGUE. Med Classific ation: Gastroint estinal Therapy Agents lorazepam 2 mg/mL oral concentrate 11-30 00:00: 00 Yes [id number] ANXIETY RESTLESSNES S 0.5 mg EVERY 2 HOURS 0.5 mg EVERY 2 HOURS (route: oral) Alternate Route: UNDER THE TONGUE. Med Classific ation: Central Nervous System Agents morphine concentrate 100 mg/5 mL (20 mg/mL) oral solution 11-30 00:00: 00 Yes [id number] PAIN, DYSPNEA 5 mg HOURLY 5 mg HOURLY (route: oral) Alternate Route: UNDER THE TONGUE. Med Classific ation: Analgesic , Anti-infl ammatory or Antipyret ic Fleet Enema 19 gram-7 gram/118 mL 11-30 00:00: 00 Yes [id number] CONSTIPATIO N 118 mL DAILY 118 mL DAILY (route: rectal) Med Classific ation: Gastroint estinal Therapy Agents bisacodyl 10 mg rectal suppository 11-30 00:00: 00 Yes [id number] CONSTIPATIO N 1 supposi tory, rectal DAILY 1 suppositor y, rectal DAILY (route: rectal) Med Classific ation: Gastroint estinal Therapy Agents Milk of Magnesia 400 mg/5 mL oral suspension 11-30 00:00: 00 Yes [id number] CONSTIPATIO N 30 mL DAILY 30 mL DAILY (route: oral) Med Classific ation: Gastroint estinal Therapy Agents lorazepam 2 mg/mL oral concentrate 02-22 00:00: 00 Yes [id number] AGITATION ANXIETY OR RESTLESS 0.5 mg EVERY 12 HOURS 0.5 mg EVERY 12 HOURS (route: oral) Alternate Route: UNDER THE TONGUE. Med Classific ation: Central Nervous System Agents Seroquel 25 mg tablet 03-08 00:00: 00 Yes [id number] AGITATION, SLEEPLESSNE SS 1 tablet EVERY PM 1 tablet EVERY PM (route: oral) Med Classific ation: Central Nervous System Agents Vital Signs Vital Name Observation Time Observation Value Commen ts Temperature 2025-08-21 09:31:00.000 97.3 [degF] Temperature 2025-08-15 09:24:00.000 98.3 [degF] Temperature 2025-08-06 09:44:00.000 97.8 [degF] Temperature 2025-07-31 08:51:00.000 98 [degF] Temperature 2025-07-16 10:39:00.000 97.6 [degF] Pulse 2025-08-21 09:31:00.000 74 /min Pulse 2025-08-15 09:24:00.000 73 /min Pulse 2025-08-06 09:44:00.000 73 /min Pulse 2025-07-31 08:51:00.000 71 /min Pulse 2025-07-16 10:39:00.000 78 /min O2 Saturation (%) 2025-08-21 09:31:00.000 94 % O2 Saturation (%) 2025-07-16 10:40:00.000 96 % Respirations 2025-08-21 09:31:00.000 20 /min Respirations 2025-08-15 09:24:00.000 17 /min Respirations 2025-08-06 09:44:00.000 16 /min Respirations 2025-07-31 08:51:00.000 16 /min Respirations 2025-07-16 10:39:00.000 16 /min Systolic Blood Pressure 2025-08-21 09:31:00.000 109 mm [Hg] Systolic Blood Pressure 2025-08-15 09:24:00.000 124 mm [Hg] Systolic Blood Pressure 2025-08-06 09:44:00.000 88 mm[ Hg] Systolic Blood Pressure 2025-07-31 08:51:00.000 100 mm [Hg] Systolic Blood Pressure 2025-07-16 10:39:00.000 110 mm [Hg] Diastolic Blood Pressure 2025-08-21 09:31:00.000 66 mm [Hg] Diastolic Blood Pressure 2025-08-15 09:24:00.000 72 mm [Hg] Diastolic Blood Pressure 2025-08-06 09:44:00.000 45 mm [Hg] Diastolic Blood Pressure 2025-07-31 08:51:00.000 73 mm [Hg] Diastolic Blood Pressure 2025-07-16 10:39:00.000 78 mm [Hg] Progress Notes Progress Notes <paragraph>[Visit Date: 2024 by BRANDYN MAE RN]:</paragraph><paragraph>REFUGIO RUBIO.([id number]) IS AN 89 YEAR OLD FEMALE RESIDING AT [facility] (209 BED A)WITH A PRIMARY DIAGNOSIS OF DYSPHAGIA S/P CEREBRAL INFARCT</paragraph><paragraph></paragraph><paragraph>COMORBIDITIES INCLUDE: HYPERTENSION, RECURRENT FALLS, PROTEIN-CALORIE MALNUTRITION, DYSPHAGIA, LEFT SIDED HEMIPARESIS, CHRONIC ATRIAL FIBRILLATION, GLAUCOMA, HISTORY OF MULTIPLE STROKES, HYPERCHOLESTEROLEMIA, HYPONATREMIA, LEGAL BLINDNESS, LYMPHADENOPATHY, MITRAL VALVE REGURGITATION, NEUROPATHY, TYPE 2 DIABETES, DIABETIC RETINOPATHY, OSTEOPOROSIS, STEATOSIS OF LIVER, TRICUSPID REGURGITATION, WEAKNESS</paragraph><paragraph></paragraph><paragraph>PPS 30</paragraph><paragraph></paragraph><paragraph>PATIENT FOUND IN DAY ROOM AT [facility]. ALERT AND ORIENTED X1 - PERSON ONLY. PATIENT REPORTS GENERALIZED PAIN, UNABLE TO CHARACTERIZE OR QUANTIFY. FACILITY NURSE TO MEDICATE. PATIENT ABLE TO ANSWER ALL QUESTIONS APPROPRIATELY. HEART RATE IS REGULAR. NO EDEMA NOTED. LUNG SOUNDS CLEAR THROUGHOUT. RESPIRATIONS EVEN AND UNLABORED. BOWEL SOUNDS POSITIVE IN ALL 4 QUADRANTS. ABDOMEN SOFT NONTENDER. LAST BOWEL MOVEMENT UNKNOWN TO FACILITY STAFF. PATIENT IS INCONTINENT OF BLADDER AND BOWEL. FACILITY STAFF ADVISED TO CONTACT [facility] WITH ANY QUESTIONS OR CONCERNS, 30/05 AVAILABILITY.</paragraph> Encounters Start Date/Time End Date/Time Encounter Type Admission Type Attending Clinicians Care Facility Care Department Encounter ID Discharge Date Discharge Status Discharge Condition Discharge Reason Percent Goals Met 2025-07-28 00:00:00 2025-09-25 00:00:00 Outpatient RECERTIFIC [facility] [id number] 3.85
== END 2025-08-21 18:48 | disposition home or self-care (01) ==
LOC: HO.MMNH3L 18:47
PROVIDERS: Visit Provider Student in an Organized Health Care Education/Training Program
DX: I48.21 Permanent atrial fibrillation (principal); E11.40 Type 2 diabetes mellitus with diabetic neuropathy, unspecified; H46.9 Unspecified optic neuritis
CPT/HCPCS: 87633